=== PATIENT | female | born 1965 | race Caucasian/White ===

== ENCOUNTER 2018-05-11 11:46 | Emergency (ER) | payer OTHER ==
[~2018-05-11] VITALS: Ht 172.7 cm; Wt 104.3 kg
--- OUTSIDE RECORDS SUMMARY | ~2018-05-11 | XMS | Encounter Summary ---
Demographics + + + | Address | [address] | | | [place] [address] | + + + | Home Phone | | + + + | Preferred Language | Unknown | + + + | Marital Status | | + + + | Hinduism Affiliation | Unknown | + + + | Race | Unknown | + + + | Ethnic Group | Unknown | + + + Author + + + | Author | [facility] | | | and [place] | + + + | Organization | [facility] | | | and [place] | + + + | Address | Unknown | + + + | Phone | Unavailable | + + + Support + + + + + | Name | Relationship | Address | Phone | + + + + + | None,Time Of Reg | ECON | 11 14 2012 | Unavailable | | | | NAN, | | + + + + + | Justin Mota | ECON | [address] | | | | | [place] | | | | | [address] | | + + + + + Care Team Providers + +------+ + | Care Community Worker Name | Role | Phone | + +------+ + | Vasiliy Bustillo DO | PCP | Unavailable | + +------+ + Reason for Visit + + + | Reason | Comments | + + + | Medication Refill | | + + + Encounter Details +--------+--------+ + + + | Date | Type | Department | Care Team | Description | +--------+--------+ + + + | 03/08/ | Refill | [facility] | Ally Otto, CC | Medication Refill | | 2017 | | [facility] | 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 | | | | | [facility] [address] | | | | | | [facility] [facility], | | | | | | [place] [address] | | | | | | [phone] | | | +--------+--------+ + + + Social History + +-------+ +--------+------+ | Tobacco Use | Types | Packs/Day | Years | Date | | | | | Used | | + +-------+ +--------+------+ | Never Smoker | | | | | + +-------+ +--------+------+ + +---+---+---+ | Smokeless Tobacco: | | | | | Never Used | | | | + +---+---+---+ + + +---------+ + | Alcohol Use | Drinks/We | oz/Week | Comments | | | ek | | | + + +---------+ + | No | | | | + + +---------+ + + + + | Sex Assigned at | Date Recorded | | | | + + + | Not on file | | + + + as of this encounter Plan of Treatment Not on fileas of this encounter Visit Diagnoses Not on filein this encounter"
--- OUTSIDE RECORDS SUMMARY | ~2018-05-11 | XMS | Clinical Summary ---
Demographics + + + | Address | [address] | | | [place] [address] | + + + | Home Phone | | + + + | Preferred Language | Unknown | + + + | Marital Status | | + + + | Mormon Affiliation | Unknown | + + + | Race | Unknown | + + + | Ethnic Group | Unknown | + + + Author + + + | Author | [facility] | | | and [place] | + + + | Organization | [facility] | | | and [place] | [...] + + + + + | Justin Duran | ECON | [address] | | | | | [place] | | | | | [address] | | + + + + + Care Team Providers + +------+ + | Care Hospital Aides And Assistants Teacher Name | Role | Phone | + +------+ + | Vasiliy Bustillo DO | PP | Unavailable | + +------+ + Allergies + + + + + + | Active Allergy | Reactions | Severity | Noted | Comments | | | | | Date | | + + + + + + | Hydrocodone | | | 06/11/20 | vomting | | | | | 13 | | + + + + + + Current Medications + + +---------+---------+------+------+-------+ | Prescription | Sig. | Disp. | Refills | Star | End | Statu | | | | | | t | Date | s | | | | | | Date | | | + + +---------+---------+------+------+-------+ | Calcium Carbonate | Take 1 tablet by | | | | | Activ | | (CALCIUM 500 PO) | mouth Daily. | | | | | e | + + +---------+---------+------+------+-------+ | fish oil 1,000 mg | Take 1,000 mg by | | | | | Activ | | capsule | mouth Daily. | | | | | e | + + +---------+---------+------+------+-------+ | ibuprofen (ADVIL, | Take 200 mg by mouth | | | | | Activ | | MOTRIN) 200 mg | every 6 hours as | | | | | e | | tablet | needed. | | | | | | + + +---------+---------+------+------+-------+ | Multiple Vitamin | Take 1 capsule by | | | | | Activ | | (MULTIVITAMINS PO) | mouth Daily. | | | | | e | + + +---------+---------+------+------+-------+ | albuterol (PROAIR | Inhale 2 puffs into | | | | | Activ | | HFA) 90 mcg/puff | the lungs every 6 | | | | | e | | inhaler | hours as needed. | | | | | | + + +---------+---------+------+------+-------+ | ascorbic acid | Take 500 mg by mouth | | | | | Activ | | (VITAMIN C) 500 mg | Daily. | | | | | e | | tablet | | | | | | | + + +---------+---------+------+------+-------+ | omeprazole | Take 1 capsule by | 60 | 2 | 12/1 | | Activ | | (PRILOSEC) 20 mg | mouth 2 times daily. | capsule | | 2/20 | | e | | capsule | | | | 13 | | | + + +---------+---------+------+------+-------+ | FLUoxetine | Take 1 capsule by | 30 | 1 | 08/2 | | Activ | | (PROZAC) 20 mg | mouth Daily. | capsule | | 8/20 | | e | | capsule | | | | 18 | | | + + +---------+---------+------+------+-------+ | | Take 1 capsule by | 90 | 1 | 08/2 | | Activ | | triamterene-hydrochl | mouth every morning. 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 | | +--------+--------+ + + + from Last 3 Months Family History + +------+ + + | Relation | Name | Status | Comments | + +------+ + + | Father | | Alive | | + +------+ + + | Mother | | | breast cancer | | | | (Age | | | | | 56) | | + +------+ + + Social History + +-------+ +--------+------+ [...] on file | | + + + Last Filed Vital Signs + + + + | Vital Sign | Reading | Time Taken | + + + + | Blood Pressure | 124/78 | 07/18/2013834 PST | + + + + | Pulse | 60 | 07/18/2013834 PST | + + + + | Temperature | 36.6 C (97.8 F) | 07/18/2013834 PST | + + + + | Respiratory Rate | 16 | 07/18/2013834 PST | + + + + | Oxygen Saturation | - | - | + + + + | Inhaled Oxygen | - | - | | Concentration | | | + + + + | Weight | 102.5 kg (226 lb) | 07/18/2013834 PST | + + + + | Height | 170.2 cm (5' 7") | 07/18/2013834 PST | + + + + | Body Mass Index | 35.4 | 07/18/2013 0835 PST | + + + + Plan of Treatment + + + + + | Health Maintenance | Due Date | Last Done | Comments | + + + + + | Hepatitis C | | | | | Screening | 4 | | | + + + + + | Vaccine: | | | | | Dtap/Tdap/Td (1 - | 3 | | | | Tdap) | | | | + + + + + | Cervical Cancer | | | | | Screening (Pap) | 4 | | | + + + + + | BREAST CANCER | | | | | SCREENING (MAMM Q2 | 4 | | | | YEARS 50-74) | | | | + + + + + | Colorectal Cancer | | 06/24/2013, 06/24/2013 | | | Screening (FIT) | 4 | | | + + + + + | PRIMARY CARE | | 07/18/2013, 06/11/2013 | | | OUTREACH-MODERATE | 4 | | | | RISK EVERY 1 YEAR | | | | + + + + + | Vaccine: Influenza | | | | | (#1) | 8 | | | + + + + + Results Not on filefrom Last 3 Months Insurance + +--------+ +------+ + + | Payer | Benefi | Subscriber | Type | Phone | Address | | | t Plan | ID | | | | | | / | | | | | | | Group | | | | | + +--------+ +------+ + + | MODA | MODA | [id number] | PPO | +- | [address] [address] | | | [place] | | [address] | [place] [address] | | | [place] | | | | | | | [place] | | | | | + +--------+ +------+ + + | [facility] | PHP | [id number] | PPO | +- | | | PLAN | [place] | | | [phone] | | | | PROV | | | | | | | CHOICE | | | | | + +--------+ +------+ + + + +--------+ +--------+ + + | Guarantor Name | Accoun | Relation to | Date | Phone | Billing Address | | | t Type | Patient | of | | | | | | | | | | + +--------+ +--------+ + + | KATHERIN DURAN | Person | Self | [birth year] | Work: | [address] | | | 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
--- OUTSIDE RECORDS SUMMARY | ~2018-05-11 | XMS | Encounter Summary ---
Demographics + + + | Address | [address] | | | [place] [address] | + + + | Home Phone | | + + + | Preferred Language | Unknown | + + + | Marital Status | | + + + | Protestant Affiliation | Unknown | + + + | Race | Unknown | + + + | Ethnic Group | Unknown | + + + Author + + + | Author | [facility] | | | and [place] | + + + | Organization | [facility] | | | and [...] [place] | | | | | [address] | | + + + + + Care Team Providers + +------+ + | Care Rehabilitation Attendant Name | Role | Phone | + [...] | | | [facility] [address] | [place] | | | | [address] [place], | [address] | | | | | [place] [address] | [phone] | | | | | [phone] | | | +--------+--------+ + + + [...]
== END 2018-05-11 11:57 | disposition home or self-care (01) ==
LOC: ED 11:46
DX: M25.562 Pain in left knee (principal); X50.1XXA Overexertion from prolonged static or awkward postures, initial encounter; Y93.89 Activity, other specified; Y92.89 Other specified places as the place of occurrence of the external cause; Y99.0 Civilian activity done for income or pay

== ENCOUNTER 2019-10-19 06:53 | Emergency (ER) | payer OTHER ==
[~2019-10-19] VITALS: Ht 172.7 cm; Wt 104.3 kg
[2019-10-19] MEDS ORDERED: BACTRIM 400-801 EACH PO (07:06)
[2019-10-19] MEDS ORDERED: FAMCICLOVIR500 MG PO (07:40)
== END 2019-10-19 07:49 | disposition home or self-care (01) ==
LOC: ED 06:53
DX: B02.9 Zoster without complications (principal); I10 Essential (primary) hypertension
CPT/HCPCS: 99282

== ENCOUNTER 2020-04-23 06:00 | Emergency (ER) | payer OTHER ==
[~2020-04-23] VITALS: Ht 172.7 cm; Wt 107.0 kg
--- OUTSIDE RECORDS SUMMARY | ~2020-04-23 | XMS | Encounter Summary ---
Demographics + + + | Address | [address] | | | [place] [address] | + + + | Home Phone | | + + + | Preferred Language | Unknown | + + + | Marital Status | | + + + | Tenriism Affiliation | Unknown | + + + | Race | White | + + + | Ethnic Group | Not or | + + + Author + + + | Author | [facility] | | | and [place] | + + + | Organization | [facility] | | | and [place] | + + + | Address | Unknown | + + + | Phone | Unavailable | + + + Support + + + + + | Name | Relationship | Address | Phone | + + + + + | Justin Mota | ECON | [address] | | | | | [place], [place] | | | | | [address] | | + + + + + Care Team Providers + +------+ + | Care Principal Technical Specialist Name | Role | Phone | + +------+ + | Vasiliy Bustillo DO | PCP | | + +------+ + Encounter Details +--------+ + + + + | Date | Type | Department | Care Team | Description | +--------+ + + + + | 06/04/ | Abstract | [facility] [place] | [facility], | | | 2012 | | GASTROENTEROLOGY | PARAG [address] | | | | | [address] | [address] | | | | | [address] [place], [place] | [place], [place] | | | | | [address] | [address] | | | | | [phone] | | | +--------+ + + + + Social History + +-------+ +--------+------+ | Tobacco Use | Types | Packs/Day | Years | Date | | | | | Used | | + +-------+ +--------+------+ | Never Assessed | | | | | + +-------+ +--------+------+ + + + | Sex Assigned at | Date Recorded | | | | + + + | Not on file | | + + + documented as of this encounter Plan of Treatment Not on filedocumented as of this encounter Visit Diagnoses Not on filedocumented in this encounter"
--- OUTSIDE RECORDS SUMMARY | ~2020-04-23 | XMS | Encounter Summary ---
Demographics + + + | Address | [address] | | | [place] [address] | + + + | Home Phone | | + + + | Preferred Language | Unknown | + + + | Marital Status | | + + + | Taoism Affiliation | Unknown | + + + | Race | White | + + + | Ethnic Group | Not or | + + + Author + + + | Author | [facility] | | | and [place] | + + + | Organization | [facility] | | | [...] [place], [place] | | | | | [address] | | + + + + + Care Team Providers + +------+ + | Care Professional Skater Name | Role | Phone | + +------+ + | Vasiliy Bustillo DO | PCP | | + +------+ + Reason for Referral Evaluate & Treat (Routine) +--------+ + + + + + | Status | Reason | Specialty | Diagnoses / | Referred By | Referred To | | | | | Procedures | Contact | Contact | +--------+ + + + + + | Closed | Specialty | Gastroenterol | Diagnoses | | Harri, | | | Services | ogy | Abdominal | [facility] | Derik Jeff MD | | | Required | | pain Fecal | Rhina, | [address], | | | | | urgency | [employer] [address] | [address] | | | | | Diarrhea | [address] | [place], | | | | | Heartburn | [address] | [place] [address] | | | | | Procedures | [place], | Phone: | | | | | [place] [facility] | [place] [address] | [phone] | | | | | ENDOSCOPY,DI | Phone: | Fax: | | | | | [place] | [phone] | [phone] | | | | | [facility]PP[facility] | Fax: | | | | | | ENDOSCOPY,BI | [phone] | | | | | | [place] | | | | | | | COLONOSCOPY, | | | | | | | DIAGNOSTIC | | | | | | | [place] | | | | | | | COLONOSCOPY, | | | | | | | BIOPSY | | | +--------+ + + + + + Reason for Visit + + + | Reason | Comments | + + + | Irritable Bowel | | | Syndrome | | + + + Evaluate & Treat (Routine) +--------+--------+ + + + + | Status | Reason | Specialty | Diagnoses / | Referred By | Referred To | | | | | Procedures | Contact | Contact | +--------+--------+ + + + + | Closed | | Nurse | Diagnoses | Ivy, | Alex, | | | | Practitioner | IBS/ PT/ | Vasiliy Jeff, | Rhina, | | | | / | MODA/ | DO [address] | [address] | | | | Gastroenterol | [address] | [address] | | | | ogy | Procedures | [place], [place] | [address] | | | | | [place] OFFICE | [address] | TIGRE [place], | | | | | OUTPATIENT | Phone: | [place] [address] | | | | | VISIT 25 | [phone] | Phone: | | | | | MINUTES | Fax: | [phone] | | | | | | [phone] | Fax: | | | | | | | [phone] | +--------+--------+ + + + + Encounter Details +--------+---------+ + + + | Date | Type | Department | Care Team | Description | +--------+---------+ + + + | 06/11/ | Office | [facility] | [facility], | Abdominal pain | | 2012 | Visit | GASTROENTEROLOGY | [address] [address] | (Primary Dx); Fecal | | | | [address] [place] | [address] [address] | urgency; Diarrhea; | | | | [address] | [place] | Heartburn | | | | [address] | [address] | | | | | [phone] | | | +--------+---------+ + + + Social History + +-------+ [...] + +---------+ + | Alcohol Use | Drinks/Week | oz/Week | Comments | + + +---------+ + | No | | | | + + +---------+ + + + + | Sex Assigned at | Date Recorded | | | | + + + | Not on file | | + + + documented as of this encounter Last Filed Vital Signs + + + + + | Vital Sign | Reading | Time Taken | Comments | + + + + + | Blood Pressure | 130/82 | 06/11/2013 8:30 AM | | | | | PST | | + + + + + | Pulse | 76 | 06/11/2013 8:30 AM | | | | | PST | | + + + + + | Temperature | 36.9 C (98.5 F) | 06/11/2013 8:30 AM | | | | | PST | | + + + + + | Respiratory Rate | 16 | 06/11/2013 8:30 AM | | | | | PST | | + + + + + | Oxygen Saturation | - | - | | + + + + + | Inhaled Oxygen | - | - | | | Concentration | | | | + + + + + | Weight | 102.1 kg (225 lb) | 06/11/2013 8:30 AM | | | | | PST | | + + + + + | Height | 170.2 cm (5' 7") | 06/11/2013 8:30 AM | | | | | PST | | + + + + + | Body Mass Index | 35.24 | 06/11/2013 8:30 AM | | | | | PST | | + + + + + documented in this encounter Progress Notes Rhina JohnsonPARAG - 06/11/2013 8:52 AM PSTFormatting of this note might be differe nt from the original. Katherin Mota is a 48 y.o. female referred by Vasiliy Bustillo for evaluation and treatm ent of abdominal pain and alterations in bowels. History of present illness: Patient notes that she has increased gas. Notes both flatulence and eructation. Notes that urge to have BM. Needs to urgently go to the restroom. Usually results in diarrh ea. Can happen about 2 times per day. Does not feel like everything is evacuating. Diarrhea episodes come about once per week. Nausea can also happen following eating. This started last week. Was an issue all last week . Never happened in the past and resolved on its own. Has tried to cut out gluten without relief. She has had issues with heartburn. Taken Prilosec for the past 3 years. Allergies Allergen Reactions Hydrocodone vomting Past Medical History Diagnosis Date Carpal tunnel syndrome Degenerative cervical disc Cervical spondylosis Spinal anomaly, congenital Sacralization of lumbar vertebra Edema Essential hypertension GERD (gastroesophageal reflux disease) Hyperlipidemia IBS (irritable bowel syndrome) Impaired fasting glucose Lumbar spondylosis Osteoarthritis Kidney stones Bronchitis UTI (urinary tract infection) Asthma STD (female) Past Surgical History Procedure Date Carpal tunnel release left hand History reviewed. No pertinent family history. History Social History Marital Status: Spouse Name: N/A Number of Children: N/A Years of Education: N/A Occupational History Not on file. Social History Main Topics Smoking status: Never Smoker Smokeless tobacco: Never Used Alcohol Use: No Drug Use: No Sexually Active: Not on file Other Topics Concern Not on file Social History Narrative No narrative on file Review of systems: Constitutional:Denies any fevers, chills, or unintentional weight loss. Eyes:Denies using glaucoma eye drops. Denies dry, burning, painful eyes Respiratory: Complains of shortness of breath. Denies constant coughing or wheezing. Gastrointestinal:Negative except as stated above. Skin: Denies rashes Neurological: Complains of numbness and tingling and frequent bothersome headaches.Denies m candie difficulties, muscle weakness, paralysis of arms or legs, epilepsy or seizure. ENT:Denies hearing loss, hearing aids, hearing ringing or buzzing in ears, constantly runny nose, nasal obstruction, hayfever, dentures, or hoarseness. Cardiovascular: Point of heart palpitations. Denies chest pain or bothersome ankle swellin g. : Denies painful urination, urine incontinence, waking up on average more than once per n ight to urinate, bloody urine, or impotence Musculoskeletal: Complains of painful joints. Denies swollen joints or painful back. Psychiatric: Complains of depression. Denies anxiety. Endocrine: Denies enlarged thyroid Heme/lymph:Negative except as stated above. Physical exam: General: well developed, well nourished, in no acute distress. Head: normocephalic and atraumatic Eyes: Sclera clear Mouth: MMM Lungs: Clear to auscultate bilaterally and throughout Heart: regular rate and rhythm Abdomen: Soft, tender to palpation over left lower quadrant, mildly tender to palpation over epi gastric area and right abdomen, non distended, bowel tones positive times 4 quadrants, negat farhad Reyes's sign, negative rebound tenderness, no guarding, no hepatosplenomegaly palpated. Rectal: Will be done prior to procedure Msk: symmetrical with no deformity, with normal posture and gait, normal strength. Extremities: no clubbing, cyanosis, edema, or deformity noted Neurologic: no focal deficits, cranial nerves II-XII grossly intact Skin: intact without lesions or rashes. Psych: alert and cooperative; normal mood and affect; normal attention span and concentration. Stool studies 05/23/2013: Stool wbc none seen Ova and parasites negative Giardia negative Clostridium difficile negative Occult blood negative Calprotectin 110 Laboratory 02/08/2013: CMP within normal limits Magnesium 2.0 within normal limits TSH 1.63 within normal limits Free T4-1 0.0 within normal limits CRP less than 5 CBC within normal limits LORENE 1:40 Assessment: 1. Abdominal pain 2. Fecal urgency 3. Diarrhea 4. Heartburn Plan: Patient to have EGD and colonoscopy for further evaluation. The procedural techniques, risk s, indications, and alternatives were discussed. Among the risks, are perforation, bleeding , infection, allergic/adverse reactions to medications, and cardiovascular complications. E ach of these could result in hospitalization, additional procedures (including surgery), or other life threatening complications. Patient verbalized understanding. Risk factors to col o-rectal cancer discussed with patient including smoking, obesity, excessive red meat ingest ion, advancing age and first degree family relative with history of colo-rectal cancer discu ssed with patient. Patient to call with any questions or concerns prior to procedure. Start probiotics daily. Will follow up with results. Patient is to call with any question or concerns. Any fevers, chills, chest pain, SOB or other serious symptoms patient is to call the office or go to ER . Cc: Vasiliy Bustillo Reviewed most recent labs, imaging, and procedures. This note was dictated using voice recognition software. Please contact me if there are an y questions regarding its content. Electronically signed by PARAG Tello at 12/2012 9:43 AM PSTdocumented in this encounter Miscellaneous Notes Miscellaneous - RAVEN DIETRICH - 06/11/2013 12:00 AM PST documented in this encounter Plan of Treatment + + +--------+ + + | Name | Type | Priori | Associated Diagnoses | Order Schedule | | | | ty | | | + + +--------+ + + | Ambulatory referral | Outpatient | Routin | Abdominal pain | Expected: | | to Gastroenterology | Referral | e | Fecal urgency | 06/24/2013, Expires: | | | | | Diarrhea Heartburn | 06/11/2014 | + + +--------+ + + documented as of this encounter Results Celiac Panel, IgA and IgG (06/11/2013 9:51 AM PST) + + + + + + | Component | Value | Ref Range | Performed | Pathologist | | | | | At | Signature | + + + + + + | Tissue | <1.2Comment: Negative | <4.0 U/mL | [facility] | | | Transglutam | < 4.0Weak Positive | | [facility] | | | inase IgA | 4.0 to 10.0Positive | | MEDICAL | | | | >10.0 | | CENTER - | | | |Positive >10.0 | | LABORATORY | | + + + + + + | Tissue | 1.3Comment: Negative | 0.0 - 5.9 U/mL | [facility] | | | Transglutam | < 6.0Weak Positive | | [facility] | | | inase IgG | 6.0 to 9.0Positive | | MEDICAL | | | | > 9.0tTG antibody, | | CENTER - | | | | especially IgA, is | | LABORATORY | | | | sensitive and specific | | | | | | foruntreated Celiac | | | | | | Disease. Levels can | | | | | | decrease significantlyin | | | | | | response to a gluten | | | | | | free diet. The IgG assay | | | | | | is usedmainly to detect | | | | | | celiac patients who are | | | | | | IgA deficient.Testing | | | | | | Performed: [facility] [address] | | | | | | [address], [place] | | | | | | [id number]: [id number] | | | | + + + + + + + + | Specimen | + + | Blood specimen | | (specimen) | + + + + + + + | Performing | Address | City/State[facility] | Phone Number | | Organization | | | | + + + + + | [facility] | [address] | [place], [place] | [phone] | | [facility] | | [address] | | | - LABORATORY | | | | + + + + + | [facility] | [address] | [place], [place] | | | [facility] | | [address], [facility] | | | - LABORATORY | | | | + + + + + documented in this encounter Visit Diagnoses + + | Diagnosis | + + | Abdominal pain - Primary Abdominal pain, unspecified site | + + | Fecal urgency | + + | Diarrhea | + + | Heartburn | + + documented in this encounter
--- OUTSIDE RECORDS SUMMARY | ~2020-04-23 | XMS | Encounter Summary ---
Demographics + + + | Address | [address] | | | [place] [address] | + + + | Home Phone | | + + + | Preferred Language | Unknown | + + + | Marital Status | | + + + | Gnosticism Affiliation | Unknown | + + + | Race | White | + + + | Ethnic Group | Not or | + + + Author + + + | Author | [facility] | | | and [place] | + + + | Organization | [facility] | | | and [place] | + + + | Address | Unknown | + + + | Phone | Unavailable | + + + Support + + + + + | Name | Relationship | Address | Phone | + + + + + | Justin Mota | ECON | [address] | | | | | [place], [place] | | | | | [address] | | + + + + + Care Team Providers + +------+ + | Care Underlay Stitcher Name | Role | Phone | + +------+ + | Vasiliy Bustillo DO | PCP | | + +------+ + Reason for Visit +--------+--------+ + | Reason | Onset | Comments | | | Date | | +--------+--------+ + | LABS | 05/24/ | | | | 2018 | | +--------+--------+ + Encounter Details +--------+ + + + + | Date | Type | Department | Care Team | Description | +--------+ + + + + | 05/24/ | Telephone | [facility] | Vasiliy Bustillo | LABS | | 2019 | | [facility] | E, DO [address] | | | | | [facility] [address] | [place], [place] | | | | [address] [place], | [address] | | | | | [place] [address] | [phone] | | | | | [phone] | | | +--------+ + + + [...] + + documented as of this encounter Miscellaneous Notes Telephone Encounter - Ally Otto CC CMA - 05/27/2019 5:39 PM PDTken Shipley with patient. RAHUL Fulton CMA eleVasiliy Cabrales DO - 05/27/2019 7:43 AM PDTPlease order same labs as 07/2018 Fasting IPL ezurdo ne Encounter - EliezercherylGalinaGloria J - 05/24/2019 9:27 AM PDTPt called and states if she need labs done before her appt on 07/30. She states she is poss going through menopause and poss thyroid problems Please call and advise [phone] Gloria Ghosh do cumented in this encounter Plan of Treatment Not on filedocumented as of this encounter Procedures + +--------+ + + + | Procedure Name | Priori | Date/Time | Associated Diagnosis | Comments | | | ty | | | | + +--------+ + + + | THYROID STIMULATING | Routin | 06/07/2019 | | Results for this | | HORMONE 3RD GEN | e | 6:36 AM | | procedure are in the | | | | PDT | | results section. | + +--------+ + + + | URINALYSIS WITH | Routin | 06/07/2019 | | Results for this | | MICROSCOPIC WITH | e | 6:36 AM | | procedure are in the | | CULTURE IF INDICATED | | PDT | | results section. | + +--------+ + + + | CBC WITH | Routin | 06/07/2019 | | Results for this | | DIFFERENTIAL | e | 6:36 AM | | procedure are in the | | | | PDT | | results section. | + +--------+ + + + documented in this encounter Results Urinalysis with Microscopic with Culture if Indicated (07/03/2019 11:26 AM PST) + + + + + + | Component | Value | Ref Range | Performed | Pathologist | | | | | At | Signature | + + + + + + | Color, | Yellow | Pale Yellow, | [facility] | | | Urine | | Yellow | [facility] | | [facility] | | | | | [facility] | | | | | [facility] | | + + + + + + | Clarity, | Slightly Cloudy (A) | Clear | [facility] | | | Urine | | | [facility] | | | | | [facility] | | | | | [facility] | | | | | | [facility] | | + + + + + + | pH, Urine | 8.0 (H) | 5.0 - 7.0 | [facility] | | | | | | [facility] | | | [facility] | | | | | [facility] | | | | | | [facility] | | + + + + + + | Specific | 1.010 | 1.003 - 1.030 | [facility] | | | [place], | | | [facility] | | | Urine | | | [facility] | | | | | | [facility] | | | | | | [facility] | | | | | | [facility] | | + + + + + + | Protein, | Negative | Negative | [facility] | | | Urine | | | [facility] | | | | | [facility] | | | | | [facility] | | | | | | [facility] | | + + + + + + | Blood, | 10 sarah/uL (A) | Negative | [facility] | | | Urine | | | [facility] | | | | | [facility] | | | | | [facility] | | | | | [facility] | | + + + + + + | Glucose, | Normal | Normal | [facility] | | | Urine | | | [facility] | [facility] | | | | | [facility] | | | | | | [facility] | | | | | | [facility] | | + + + + + + | Ketones, | Negative | Negative | [facility] | | | Urine | | | [facility] | [facility] | [facility] | | | | | | [facility] | | | | | | [facility] | | | | | | [facility] | | + + + + + + | Bilirubin, | Negative | Negative | [facility] | | | Urine | | | [facility] | | | | | [facility] | | | | | | [facility] | | | | | | [facility] | | + + + + + + | Nitrite, | Negative | Negative | [facility] | | | Urine | | | [facility] | | | | | | [facility] | | | | | | [facility] | | | | | | [facility] | | + + + + + + | Leukocyte | Negative | Negative | [facility] | | | Esterase, | | | [facility] | | | Urine | | | [facility] | | | | | | [facility] | | | | | | [facility] | | | | | | [facility] | | + + + + + + | Urobilinoge | Normal | 0-1.0 mg/dL | [facility] | | | n, Urine | | | [facility] | [facility] | [facility] | | | | | | [facility] | | | | | | [facility] | | | | | | [facility] | | + + + + + + | White Blood | 0-2 | <=5 /HPF | [facility] | | | Cells, | | | [facility] | | | Urine | | | [facility] | | | | | | [facility] | | | | | | [facility] | | | | | | [facility] | | + + + + + + | Red Blood | 0-2 | <=5 /HPF | [facility] | | | Cells, | | | [facility] | | | Urine | | | [facility] | | | | | | [facility] | | | | | | [facility] | | | | | | [facility] | | + + + + + + | Squamous | Many (A) | None Seen /LPF | [facility] | | | Epithelial | | | [facility] | | | Cells, | | | [facility] | | | Urine | | | [facility] | | | | | | [facility] | | | | | | [facility]ENTER LAB | | + + + + + + | Bacteria, | Few (A) | None Seen /HPF | [facility] | | | Urine | | | [facility] | | | | | | [facility] | | | | | | [facility] | | | | | | [facility] | | + + + + + + | Urine | Urine Culture Not | | [facility] | | | Comment | Indicated | | [facility] | | [facility] | | [facility] | | | | | | [facility] | | | | | | [facility] | | + + + + + + + + | Specimen | + + | Urine - Urine | | specimen obtained by | | clean catch | | procedure (specimen) | + + + + + + + | Performing | Address | City/State/Zipcode | Phone Number | | Organization | | | | + + + + + | [facility] | [address] | [place] | [phone] | | [facility] | | [address] | | | [facility] | | | | + + + + + TSH (07/03/2019 11:20 AM PST) + +-------+ + + + | Component | Value | Ref Range | Performed | Pathologist | | | | | At | Signature | + +-------+ + + + | TSH | 1.32 | 0.36 - 3.74 | [facility] | | | | | uIU/mL | [facility] | [facility] | | | | | | [facility] | | + +-------+ + + + + + | Specimen | + + | Blood | + + + + + + + | Performing | Address | City/State/Zipcode | Phone Number | | Organization | | | | + + + + + | [facility] | [address] | [place] | [phone] | | [facility] | | [address] | | + + + + + CBC with Differential (07/03/2019 11:20 AM PST) + +---------+ + + + | Component | Value | Ref Range | Performed | Pathologist | | | | | At | Signature | + +---------+ + + + | White Blood | 8.3 | 4.3 - 10.4 K/uL | [facility] | | | Cells | | | [facility] | | | | [facility] | | | | | [facility] | | | | | | [facility] | | | | | | [facility] | | + +---------+ + + + | Red Blood | 4.91 | 4.12 - 5.30 | [facility] | | | Cells | | M/uL | [facility] | [facility] | | | | | | [facility] | | | | | | [facility] | | | | | | [facility] | | + +---------+ + + + | Hemoglobin | 14.7 | 12.4 - 15.7 | [facility] | | | | | g/dL | [facility] | | | | | | [facility] | | | | | | [facility] | | | | | | [facility] | | + +---------+ + + + | Hematocrit | 43.8 | 37.7 - 47.0 % | [facility] | | | | | | [facility] | | | | [facility] | | | | | | [facility] | | | | | | [facility] | | + +---------+ + + + | MCV | 89.2 | 82.0 - 97.0 fL | [facility] | | | | | | [facility] | | [facility] | | | [facility] | | | | | | [facility] | | + +---------+ + + + | MCH | 29.9 | 27.1 - 32.3 pg | [facility] | | | | | | [facility] | | | [facility] | | | [facility] | | | | | | [facility] | | + +---------+ + + + | MCHC | 33.6 | 32.0 - 36.9 | [facility] | | | | | g/dL | [facility] | | | | | [facility] | | | | | [facility] | | | | | | [facility] | | + +---------+ + + + | RDW-CV | 13.7 | 0.0 - 17.0 % | [facility] | | | | | | [facility] | | | | | [facility] | | | | | [facility] | | | | | | [facility] | | + +---------+ + + + | Platelet | 232 | 150 - 450 K/uL | [facility] | | | Count | | | [facility] | | | [facility] | | | | | [facility] | | | | | [facility] | | + +---------+ + + + | MPV | 7.8 (L) | 9.4 - 12.3 fL | [facility] | | | | | | [facility] | | [facility] | | | [facility] | | | | | | [facility] | | + +---------+ + + + | % | 53.6 | 42.0 - 76.0 % | [facility] | | | Neutrophils | | | [facility] | | | | | [facility] | | | | | | [facility] | | | | | | [facility] | | + +---------+ + + + | % | 38.5 | 20.0 - 40.0 % | [facility] | | | Lymphocytes | | | [facility] | | | | | [facility] | | | | | | [facility] | | | | | | [facility] | | + +---------+ + + + | % Monocytes | 5.8 | 3.0 - 13.0 % | [facility] | | | | | | [facility] | | | [facility] | [facility] | | | | | [facility] | | | | | | [facility] | | + +---------+ + + + | % | 1.7 | 0.0 - 7.0 % | [facility] | | | Eosinophils | | | [facility] | | | | | [facility] | | | | | | [facility] | | | | | | [facility] | | + +---------+ + + + | % Basophils | 0.4 | 0.0 - 2.0 % | [facility] | | | | | | [facility] | | | | | [facility] | | | | | | [facility] | | | | | | [facility] | | + +---------+ + + + | Absolute | 4.40 | 2.50 - 8.50 | [facility] | | | Neutrophils | | K/uL | [facility] | | | | [facility] | | | [facility] | | | | | | [facility] | | + +---------+ + + + | Absolute | 3.20 | 1.00 - 3.80 | [facility] | | | Lymphocytes | | K/uL | [facility] | | | | | [facility] | | | | | [facility] | | | | | | [facility] | | + +---------+ + + + | Absolute | 0.50 | 0.00 - 0.80 | [facility] | | | Monocytes | | K/uL | [facility] | | | | | | [facility] | | | | | | [facility] | | | | | | [facility] | | + +---------+ + + + | Absolute | 0.10 | 0.00 - 0.70 | [facility] | | | Eosinophils | | K/uL | [facility] | | | | | [facility] | | | | | [facility] | | | | | | [facility] | | + +---------+ + + + | Absolute | 0.00 | 0.00 - 0.20 | [facility] | | | Basophils | | K/uL | [facility] | | | [facility] | [facility] | | | | | [facility] | | | | | | [facility] | | + +---------+ + + + + + | Specimen | + + | Blood | + + + + + + + | Performing | Address | City/State/Zipcode | Phone Number | | Organization | | | | + + + + + | [facility] | [address] | [place], [place] | [phone] | | [facility] | | [address] | | | [facility] | | | | + + + + + Comprehensive Metabolic Panel (07/03/2019 11:20 AM PST) + +---------+ + + + | Component | Value | Ref Range | Performed | Pathologist | | | | | At | Signature | + +---------+ + + + | Na | 139 | 132 - 143 | [facility] | | | | | mmol/L | [facility] | | | | [facility] | | + +---------+ + + + | K | 3.4 | 3.3 - 4.9 | [facility] | | | | | mmol/L | [facility] | [facility] | | | [facility] | | + +---------+ + + + | Cl | 101 | 95 - 108 mmol/L | [facility] | | | | | | [facility] | | | | [facility] | | + +---------+ + + + | CO2 | 27 | 23 - 34 mmol/L | [facility] | | | | | | [facility] | [facility] | | [facility] | | + +---------+ + + + | Anion Gap | 11 | 7 - 16 mmol/L | [facility] | | | | | | [facility] | [facility] | [facility] | | + +---------+ + + + | Glucose | 80 | 70 - 110 mg/dL | [facility] | | | | | | [facility] | [facility] | | [facility] | | + +---------+ + + + | BUN | 12 | 5 - 26 mg/dL | [facility] | | | | | | [facility] | [facility] | [facility] | | + +---------+ + + + | Creatinine | 0.89 | 0.60 - 1.30 | [facility] | | | | | mg/dL | [facility] | | | | | | [facility] | | + +---------+ + + + | eGFR, | >60 | >=60 | [facility] | | | non- | | mL/min/1.73m2 | [facility] | | | [place] | | | | | | [facility] | | + +---------+ + + + | Calcium | 8.8 | 8.3 - 10.0 | [facility] | | | | | mg/dL | [facility] | | | | | [facility] | | + +---------+ + + + | Albumin | 3.9 | 3.0 - 4.5 g/dL | [facility] | | | | | | [facility] | | | | | | [facility] | | + +---------+ + + + | Bilirubin | 0.3 | 0.0 - 1.2 mg/dL | [facility] | | | Total | | | [facility] | | | | | | [facility] | | + +---------+ + + + | Total | 7.7 | 6.6 - 8.5 g/dL | [facility] | | | Protein | | | [facility] | | | | | | [facility] | | + +---------+ + + + | AST | 24 | 0 - 38 U/L | [facility] | | | | | | [facility] | | | | | [facility] | | + +---------+ + + + | ALT | 34 | 14 - 59 U/L | [facility] | | | | | | [facility] | [facility] | [facility] | | + +---------+ + + + | Alkaline | 137 (H) | 46 - 116 U/L | [facility] | | | Phosphatase | | | [facility] | | | | | | [facility] | | + +---------+ + + + | Globulin | 3.8 | 2.4 - 4.5 g/dL | [facility] | | | | | | [facility] | | | | | [facility] | | + +---------+ + + + | Albumin/Tatiana | 1.0 | 0.8 - 2.0 | [facility] | | | bulin Ratio | | | [facility] | | | | | [facility] | | + +---------+ + + + | BUN/Creatin | 13.5 | 7.0 - 24.0 | [facility] | | | ine Ratio | | | [facility] | | | | | | [facility] | | + +---------+ + + + | Fasting? | No | | [facility] | | | | | | [facility] | | [facility] | | | | | [facility] | | | | | | [facility] | | + +---------+ + + + + + | Specimen | + + | Blood | + + + + + + + | Performing | Address | City/State/Zipcode | Phone Number | | Organization | | | | + + + + + | [facility] | [address] | [place], [place] | [phone] | | [facility] | | [address] | | + + + + + | [facility] | [address] | [place], [place] | [phone] | | [facility] | | [address] | | | [facility] | | | | + + + + + Lipid Panel (07/03/2019 11:20 AM PST) + + + + + + | Component | Value | Ref Range | Performed | Pathologist | | | | | At | Signature | + + + + + + | Triglycerid | 204 (H) | 30 - 200 mg/dL | [facility] | | | es | | | [facility] | | | | | | [facility] | | + + + + + + | Cholesterol | 236 (H) | 0 - 200 mg/dL | [facility] | | | | | | [facility] | | | | | | [facility] | | + + + + + + | HDL | 41 | >=40 mg/dL | [facility] | | | | | | [facility] | | | | | | [facility] | | + + + + + + | Chol/HDL | 5.8 (H) | <=5.0 | [facility] | | | Ratio | | | [facility] | | | | | | [facility] | | + + + + + + | LDL, | 154 (H)Comment: LDL | <130 mg/dL | [facility] | | | Calculated | reference range: | | [facility] | | | | < 100 mg/dL | | [facility] | | | | [id number] - 129 mg/dL | | LAB[facility]AT[facility] | | | | Near [id number] - | | | | | | 159 mg/dL | | | | | | [id number] - 189 | | | | | | mg/dL High | | | | | | > 190 mg/dL Very | | | | | | High | | | | + + + + + + | Fasting? | No | | [facility] | | | | | | [facility] | | | | | [facility] | | | | | | [facility] | | | | | | [facility] | | + + + + + + + + | Specimen | + + | Blood | + + + + + + + | Performing | Address | City/State/Zipcode | Phone Number | | Organization | | | | + + + + + | [facility] | [address] | [place] | [phone] | | [facility] | | [address] | | + + + + + | [facility] | [address] | [place] | [phone] | | [facility] | | [address] | | | [facility] | | | | + + + + + Thyroid Stimulating Hormone 3rd Gen (06/07/2019 6:36 AM PDT) + + + + + + | Component | Value | Ref Range | Performed | Pathologist | | | | | At | Signature | + + + + + + | TSH | 1.91Comment: Biotin in | 0.270 - 4.20 | [facility] | | | | specimens taken from | | LAB | | | | patients on high-dose | | [facility] - | | | | biotin therapy or | | [facility] | | | | supplements may intefere | | | | | | with this test and | | | | | | cause inaccurate test | | | | | | results. It is | | | | | | recommended that for | | | | | | patients receiving | | | | | | therapy with high biotin | | | | | | doses (> 5 mg/day), no | | | | | | laboratory test specimen | | | | | | should be collected | | | | | | until at least 8 hours | | | | | | after the last biotin | | | | | | administration. | | | | + + + + + + + + | Specimen | + + | | + + + + + | Narrative | Performed At | + + + | Testing Performed at: [facility] [place] [facility] CLIA: [id number] - [address] | REFERENCE LAB | | [place] [address] | [facility] - | | | [facility] | + + + + + + + + | Performing | Address | City/State/Zipcode | Phone Number | | Organization | | | | + + + + + | [facility] | [address] | [place] | [phone] | | [facility] | | [address] | | + + + + + Urinalysis with Microscopic with Culture if Indicated (06/07/2019 6:36 AM PDT) + + + + + + | Component | Value | Ref Range | Performed | Pathologist | | | | | At | Signature | + + + + + + | Collection | CLEAN CATCH | | REFERENCE | | | | | | LAB | | | | | | [facility] | | + + + + + + | Color, UA | YELLOW | | REFERENCE | | | | | | LAB | | | | | | [facility] | | + + + + + + | Clarity, | CLOUDY | | REFERENCE | | | Urine | | | LAB | | | | | | [facility] | | + + + + + + | Specific | 1.020 | 1.005 - 1.030 | REFERENCE | | | [place] | | | LAB | | | | | | [facility] | | + + + + + + | pH, | 6 | 5 - 9 | REFERENCE | | | Scalp | | | LAB | | | | | | [facility] | | + + + + + + | Protein, UA | NEGATIVE | negative | REFERENCE | | | | | | LAB | | | | | | [facility] | | + + + + + + | Glucose, UA | NORMAL | normal | REFERENCE | | | | | | LAB | | | | | | [facility] | | + + + + + + | Ketones, UA | NEGATIVE | negative | REFERENCE | | | | | | LAB | | | | | | [facility] | | + + + + + + | Bilirubin, | NEGATIVE | negative | REFERENCE | | | UA | | | LAB | | | | | | [facility] | | + + + + + + | Blood, UA | SMALL | negative | REFERENCE | | | | | | LAB | | | | | | [facility] | | + + + + + + | Nitrite, UA | NEGATIVE | negative | REFERENCE | | | | | | LAB | | | | | | [facility] | | + + + + + + | Urobilinoge | NORMAL | normal | REFERENCE | | | n, Ur | | | LAB | | | | | | [facility] | | + + + + + + | Leukocyte | SMALL | negative | REFERENCE | | | esterase, | | | LAB | | | UA | | | [facility] | | + + + + + + | Other Casts | NEGATIVE | 0-1+ Hyaline | REFERENCE | | | | | | LAB | | | | | | [facility] | | + + + + + + | WBC, UA | 10 (H) | 0 - 4 | REFERENCE | | | | | | LAB | | | | | | [facility] | | + + + + + + | RBC, UA | 5 (H) | 0 - 4 | REFERENCE | | | | | | LAB | | | | | | [facility] | | + + + + + + | Squamous | SQUAMOUS 4+ | 0-1+ Squamous | REFERENCE | | | epithelial, | | | LAB | | | UA | | | [facility] | | + + + + + + | CRYSTAL UA | NEGATIVE | 0-1+ | REFERENCE | | | | | | LAB | | | | | | [facility] | | + + + + + + | Bacteria, | 4+Comment: A urine | negative | REFERENCE | | | UA | culture is indicated (10 | | LAB | | | | or greater WBCs and/or | | [facility] | | | | >1+ bacteria). However, | | | | | | the urinalysis | | | | | | microscopic shows | | | | | | urogenital contamination | | | | | | (>1+ squamous | | | | | | epithelial cells). If | | | | | | culture is desired, a | | | | | | new specimen is | | | | | | recommended. | | | | + + + + + + + + | Specimen | + + | | + + + + + | Narrative | Performed At | + + + | Testing Performed at: [facility] CLIA: [id number] - [address] | REFERENCE LAB | | [place] [address] | [facility] | + + + + + + + + | Performing | Address | City/State/Zipcode | Phone Number | | Organization | | | | + + + + + | RE[facility] | [address] | [place] | [phone] | | [facility] | | [address] | | + + + + + | REFERENCE LAB | [address] | [place] | [phone] | | [facility] | | [address] | | + + + + + CBC with Differential (06/07/2019 6:36 AM PDT) + +-------+ + + + | Component | Value | Ref Range | Performed | Pathologist | | | | | At | Signature | + +-------+ + + + | WBC | 6.3 | 4.5 - 11.0 | REFERENCE | | | | | | LAB | | | | | | [facility] | | + +-------+ + + + | Red Blood | 4.84 | 3.8 - 5.1 | REFERENCE | | | Cells | | | LAB | | | | | | [facility] | | + +-------+ + + + | Hemoglobin | 14.3 | 12.0 - 16.0 | REFERENCE | | | | | | LAB | | | | | | [facility] | | + +-------+ + + + | Hct | 42.5 | 35 - 45 | REFERENCE | | | | | | LAB | | | | | | [facility] | | + +-------+ + + + | MCV | 87.8 | 81 - 99 | REFERENCE | | | | | | LAB | | | | | | [facility] | | + +-------+ + + + | RDW | 14.0 | 10.5 - 15.0 | REFERENCE | | | | | | LAB | | | | | | [facility] | | + +-------+ + + + | MCH | 30 | 27 - 33 | REFERENCE | | | | | | LAB | | | | | | [facility] | | + +-------+ + + + | MCHC | 34 | 30 - 36 | REFERENCE | | | | | | LAB | | | | | | [facility] | | + +-------+ + + + | Platelet | 212 | 140 - 440 | REFERENCE | | | Count | | | LAB | | | | | | [facility] | | + +-------+ + + + | % | 57.7 | 39 - 80 | REFERENCE | | | Neutrophils | | | LAB | | | | | | [facility] | | + +-------+ + + + | % | 34.0 | 24 - 44 | REFERENCE | | | Lymphocytes | | | LAB | | | | | | [facility] | | + +-------+ + + + | Monocyte % | 6.4 | 0 - 12 | REFERENCE | | | | | | LAB | | | | | | [facility] | | + +-------+ + + + | Eosinophils | 0.9 | 0 - 6 | REFERENCE | | | % | | | LAB | | | | | | [facility] | | + +-------+ + + + | Basophils % | 1.0 | 0 - 2 | REFERENCE | | | | | | LAB | | | | | | [facility] | | + +-------+ + + + + + | Specimen | + + | | + + + + + | Narrative | Performed At | + + + | Testing Performed at: [facility] CL[facility]: [id number] - [address] | REFERENCE LAB | | [place] [address] | [facility] | + + + + + + + + | Performing | Address | City/State/Zipcode | Phone Number | | Organization | | | | + + + + + | REFERENCE LAB | [address] | [place] | [phone] | | [place] | | [address] | | + + + + + | REFERENCE LAB | [address] [facility] | [place] | [phone] | | [facility] | | [address] | | + + + + + documented in this encounter Visit Diagnoses + + | Diagnosis | + + | Essential hypertension - Primary Unspecified essential hypertension | + + | Hyperlipidemia, unspecified hyperlipidemia type | + + | Other depression | + + | Impaired fasting glucose | + + | Physical exam | + + documented in this encounter"
--- OUTSIDE RECORDS SUMMARY | ~2020-04-23 | XMS | Encounter Summary ---
Demographics + + + | Address | [address] | | | [place] [address] | + + + | Home Phone | | + + + | Preferred Language | Unknown | + + + | Marital Status | | + + + | Catholic Affiliation | Unknown | + + + | Race | White | + + + | Ethnic Group | Not or | + + + Author + + + | Author | [facility] | | | and [place] | + + + | Organization | [facility] | | | and [...] [place], [place] | | | | | [address] | | + + + + + Care Team Providers + +------+ + | Care Welding Estimator Name | Role | Phone | + +------+ + | Vasiliy Bustillo DO | PCP | | + +------+ + Reason for Visit Auth/Cert +--------+--------+ + + + + | Status | Reason | Specialty | Diagnoses / | Referred By | Referred To | | | | | Procedures | Contact | Contact | +--------+--------+ + + + + | | | | Diagnoses | | Char, | | | | | | | Derik Jeff MD | | | | | Gastroesopha | | [address], | | | | | geal reflux | | [address] | | | | | disease, | | [place], | | | | | esophagitis | | [place] [address] | | | | | presence not | | Phone: | | | | | specified | | [phone] | | | | | JANE | | Fax: | | | | | (obstructive | | [phone] | | | | | sleep | | | | | | | apnea) | | | | | | | Procedures | | | | | | | [place] | | | | | | | ESOPHAGOGAST | | | | | | | RODUODENOSCO | | | | | | | PY TRANSORAL | | | | | | | DIAGNOSTIC | | | | | | | [place] EGD | | | | | | | TRANSORAL | | | | | | | BIOPSY | | | | | | | SINGLE/MULTI | | | | | | | PLE [place] | | | | | | | ANESTHESIA | | | | | | | UPPER GI | | | | | | | ENDOSCOPIC | | | | | | | PX NOS EGD | | | +--------+--------+ + + + + Encounter Details +--------+---------+ + + + | Date | Type | Department | Care Team | Description | +--------+---------+ + + + | 09/06/ | Surgery | [facility] | Derik Pardo MD | EGD | | 2020 | | [facility] | [address], [place] | | | | | [address] | [address] [place], [place] | | | | | [place], [place] | [address] | | | | | [address] | | | | | | [phone] | | | +--------+---------+ + + + Social History + +-------+ +--------+------+ | Tobacco Use | Types | Packs/Day | Years | Date | | | | | Used | | + +-------+ +--------+------+ | Never Smoker | | 0 | 0 | | + +-------+ +--------+------+ + +---+---+---+ | Smokeless Tobacco: | | | | | Never Used | | | | + +---+---+---+ + + +---------+ + | Alcohol Use | Drinks/Week | oz/Week | Comments | + + +---------+ + | No | 0 Glasses of wine | 0.0 | | | | 0 Cans of beer 0 | | | | | Shots of liquor 0 | | | | | Standard drinks or | | | | | equivalent | | | + + +---------+ + + + + + | Alcohol Habits | Answer | Date Recorded | + + + + | How often do you have a drink containing | Never | 07/03/2019 | | alcohol? | | | + + + + | How many drinks containing alcohol do you | Not asked | | | have on a typical day when you are | | | | drinking? | | | + + + + | How often do you have six or more drinks on | Never | 07/03/2019 | | one occasion? | | | + + + + + + + | Sex Assigned at | Date Recorded | | | | + + + | Not on file | | + + + documented as of this encounter Last Filed Vital Signs + + + + + | Vital Sign | Reading | Time Taken | Comments | + + + + + | Blood Pressure | 172/83 | 09/06/2019 10:07 AM | | | | | PST | | + + + + + | Pulse | 71 | 09/06/2019 10:07 AM | | | | | PST | | + + + + + | Temperature | 36.7 C (98.1 F) | 09/06/2019 10:07 AM | | | | | PST | | + + + + + | Respiratory Rate | 16 | 09/06/2019 10:07 AM | | | | | PST | | + + + + + | Oxygen Saturation | 99% | 09/06/2019 10:07 AM | | | | | PST | | + + + + + | Inhaled Oxygen | - | - | | | Concentration | | | | + + + + + | Weight | 107.8 kg (237 lb | 09/06/2019 10:07 AM | | | | 10.5 oz) | PST | | + + + + + | Height | 172.7 cm (5' 8") | 09/06/2019 10:07 AM | | | | | PST | | + + + + + | Body Mass Index | 36.14 | 09/06/2019 10:07 AM | | | | | PST | | + + + + + documented in this encounter Medications at Time of Discharge + + + +---------+ + + | Medication | Sig | Dispensed | Refills | Start | End Date | | | | | | Date | | + + + +---------+ + + | Calcium Carbonate | Take 1 tablet by | | 0 | | | | (CALCIUM 500 PO) | mouth as needed. | | | | | + + + +---------+ + + | Cetirizine HCl | Take 1 tablet by | | 0 | | | | (ZYRTEC ALLERGY PO) | mouth Daily as | | | | | | | needed. | | | | | + + + +---------+ + + | | | | 0 | 04/30/20 | | | Estradiol-Norethindr | | | | 19 | | | one Acet 0.5-0.1 MG | | | | | | | TABS | | | | | | + + + +---------+ + + | FLUoxetine | Take 2 capsules by | 90 | 3 | 07/03/20 | | | (PROZAC) 20 mg | mouth Daily. | capsule | | 19 | | | capsuleIndications: | | | | | | | Other depression | | | | | | + + + +---------+ + + | ibuprofen (ADVIL, | Take 200 mg by mouth | | 0 | | | | MOTRIN) 200 mg | every 6 hours as | | | | | | tablet | needed. | | | | | + + + +---------+ + + | Multiple Vitamin | Take 1 capsule by | | 0 | | | | (MULTIVITAMINS PO) | mouth Daily. | | | | | + + + +---------+ + + | | Take 1 capsule by | 90 | 3 | 06/14/20 | | | triamterene-hydrochl | mouth every morning. | capsule | | 19 | | | orothiazide | | | | | | | (DYAZIDE) 37.5-25 MG | | | | | | | per | | | | | | | capsuleIndications: | | | | | | | Essential | | | | | | | hypertension | | | | | | + + + +---------+ + + | esomeprazole | Take 1 capsule by | 30 | 3 | 07/03/20 | | | (NEXIUM) 20 mg | mouth every morning | capsule | | 19 | 0 | | capsuleIndications: | (before breakfast). | | | | | | Gastroesophageal | | | | | | | reflux disease, | | | | | | | esophagitis presence | | | | | | | not specified | | | | | | + + + +---------+ + + documented as of this encounter H&P Notes Derik Pardo MD - 09/06/2019 11:43 AM PSTThe patient has no questions consent form is si gned we will proceed with upper endoscopyElectronically signed by Derik Pardo MD at 09/06 11:44 AM Derik Yates MD - 09/05/2019 9:35 AM PST PRE-ENDOSCOPY HISTORY AND PRE-SEDATION ASSESSMENT PATIENT NAME: Katherin Mota : 1965 TODAY'S DATE: 09/06/2019 PLANNED PROCEDURE: upper endoscopy PERTINENT HISTORY/INDICATION FOR PROCEDURE: Katherin Mota is a 54 y.o. female who i s undergoing upper endoscopy for evaluation of GERD and dysphagia. Patient complains of dys phagia and oral pharyngeal area and upper esophageal area primarily with capsules. She also complains of some retrosternal burning. She denies other supra esophageal manifestations o f reflux. Endoscopy 2012 showed nonerosive reflux disease mid esophageal biopsies were n egative for eosinophilic esophagitis PAST HISTORY: Past Medical History: Diagnosis Date Asthma Bronchitis Carpal tunnel syndrome Cervical spondylosis Degenerative cervical disc Edema Essential hypertension GERD (gastroesophageal reflux disease) Hyperlipidemia IBS (irritable bowel syndrome) Impaired fasting glucose Kidney stones Lumbar spondylosis Osteoarthritis Sacralization of lumbar vertebra Sleep apnea; uses cpap Spinal anomaly, congenital STD (female) UTI (urinary tract infection) PAST SURGICAL HISTORY Past Surgical History: Procedure Laterality Date CARPAL TUNNEL RELEASE Bilateral COLONOSCOPY 06/24/13 moderate colonic spasm. next due 10 years (06/07/2023) ENDOSCOPY 06/24/13 all bx negative SHOULDER SURGERY Left 2014 UPPER GASTROINTESTINAL ENDOSCOPY 06/24/13 HOME MEDS: Prior to Admission medications Medication Sig Taking? Calcium Carbonate (CALCIUM 500 PO) Take 1 tablet by mouth as needed. Cetirizine HCl (ZYRTEC ALLERGY PO) Take 1 tablet by mouth Daily as needed. Yes esomeprazole (NEXIUM) 20 mg capsule Take 1 capsule by mouth every morning (before breakfast ). Yes Estradiol-Norethindrone Acet 0.5-0.1 MG TABS Yes FLUoxetine (PROZAC) 20 mg capsule Take 2 capsules by mouth Daily. Yes ibuprofen (ADVIL, MOTRIN) 200 mg tablet Take 200 mg by mouth every 6 hours as needed. Multiple Vitamin (MULTIVITAMINS PO) Take 1 capsule by mouth Daily. Yes triamterene-hydrochlorothiazide (DYAZIDE) 37.5-25 MG per capsule Take 1 capsule by mouth ev sarah morning. Yes ALLERGIES Allergies Allergen Reactions Hydrocodone Nausea And Vomiting ASA CLASSIFICATION 3 EXAMINATION: Blood pressure 172/83, pulse 71, temperature 36.7 C (98.1 F), temperature source Tempor al, resp. rate 16, height 1.727 m (5' 8"), weight 107.8 kg (237 lb 10.5 oz), last menstrual period 07/18/2013, SpO2 99 %, not currently . General: Alert and orientedx3 Throat: Normal Lungs: Clear Heart: Regular rate and rhythm with out significant murmur Abdomen: obese, normal bowel sounds. Soft, nontender 1. Available medical records have been reviewed. [facility] 07/03/2019 proc edure note 11 2012 2. Medication list reviewed. IMPRESSION: dysphagia etiology be determined Patient appropriate for procedure. PLAN: 1. Proceed with procedure as stated above with propofol sedation/analgesia due to obesity a nd JANE. 2. Procedure, indications, risks and alternatives explained to patient/family and they agre ed to proceed and consent was signed. 3. Patient will be reevaluated immediately (1-2 minutes) before sedation administration and approved for the plan as stated above. Electronically Signed by: eDrik Pardo MD 09/06/2019 [facility] Portions of this chart may have been created with [employer]book voice recognition software. Occasi onal wrong-word or sound-alike substitutions may have occurred due to the inherent lewis itations of voice recognition software. Please read the chart carefully and recognize, using context, where these substitutions have occurred documented in this encounter Miscellaneous Notes Op Note - Derik Pardo MD - 09/06/2019 12:00 PM PSTUpper endoscopy was remarkable for an active gag reflex. No mechanical narrowing was noted in the esophagus. EG junction was pa tulous at 37 cm. There is some minor antral gastritis H. pylori biopsy was obtained. Duode nal mucosa appeared normal. Distal esophageal and mid esophageal biopsies were obtained. P atient was empirically dilated with 48 Pashto Patino dilator with no mucosal disruption see n in the hypopharynx or upper esophagus. Patient will continue on antireflux regimen and PP I therapy pending biopsy results 12: 00 PM PSTD-C Instructions Provation - Derik Pardo MD - 09/06/2019 11:32 AM PSTDischarge Instructions for Upper Endoscopy Patient: Katherin Mota : 1965 Acct: [id number] Exam Date: Friday, September 06, 2019 Doctor: Derik Pardo MD The chances of difficulty following this procedure are minimal. The following instructions will assist you in your recovery. 1. Do Not eat or drink anything for 1 hour. Try sips of water first. If tolerated, resume your regular diet or one recommended by your physician. 2. Do not drive, operate machinery, make critical decisions, or do activities that require coordination or balance for 24 hours. 3. You may experience a sore throat for 24 - 48 hours. You may use throat lozenges or gargle with warm salt water to relieve the discomfort. 4. Because air was put into your stomach druing the procedure, you may experience some belching. 5. Do not use any medication containing aspirin for 10 days, unless otherwise directed by your physician. 6. Sometimes the medications given to you druing the exam can aggravate the veins. The chemical irritation can cause inflammation or pain along the arm with redness, swelling and warmth. This does not mean there is an infection. You can treat the affected area by applying warm, wet compresses (towels) 4 times a day for 20 minutes at a time until inflammation is resolved 7. Report to your doctor: Chills and/or fever over 100 Persistent vomiting or vomiting with blood/nasal regurgitation Severe abdominal pain, other than gas cramps Severe chest pain Black, tarry stools You may reach your physician at Work: . If unable to reach your physician, call [facility] Emergency Department at Ext. [phone] Your doctor recommends these additional instructions: You have a contact number available for emergencies. The signs and symptoms of potential delayed complications were discussed with you. You may return to normal activities tomorrow. Written discharge instructions were provided to you. You are being discharged to home. Eat a mechanical soft diet today. Continue your present medications. Follow an antireflux regimen indefinitely. This includes: - Do not lie down for at least 3 to 4 hours after meals. - Raise the head of the bed 4 to 6 inches. - Decrease excess weight. - Avoid citrus juices and other acidic foods, alcohol, chocolate, mints, coffee and other caffeinated beverages, carbonated beverages, fatty and fried foods. - Avoid tight-fitting clothing. - Avoid cigarettes and other tobacco products. We are waiting for your pathology results. Return to your primary care physician as previously scheduled. Telephone your GI clinic for pathology results in one week. These instructions have been explained to the patient and/or escort. A copy has been given to the patient/escort. Nurse Signature Patient Signature Escort Signature Date Derik Pardo MD 09/06/2019 12:05:50 PM This report has been signed electronically.Electronically signed by Derik Pardo MD at 12:05 PM PSTdocumented in this encounter Plan of Treatment Not on filedocumented as of this encounter Procedures + +--------+ + + + | Procedure Name | Priori | Date/Time | Associated Diagnosis | Comments | | | ty | | | | + +--------+ + + + | HELICOBACTER PYLORI | Routin | 09/06/2019 | | Results for this | | BIOPSY | e | 11:48 AM | | procedure are in the | | | | PST | | results section. | + +--------+ + + + | EGD | | 09/06/2019 | Gastroesophageal | | | | | 11:40 AM | reflux disease, | | | | | PST | esophagitis presence | | | | | | not specified JANE | | | | | | (obstructive sleep | | | | | | apnea) | | + +--------+ + + + | *TERMED* [place] [facility] | Routin | 09/06/2019 | | Results for this | | ENDOSCOPY,EXAM | e | 11:32 AM | | procedure are in the | | | | PST | | results section. | + +--------+ + + + | SURGICAL PATHOLOGY | Routin | 09/06/2019 | | Results for this | | EXAM | e | 12:00 AM | | procedure are in the | | | | PST | | results section. | + +--------+ + + + documented in this encounter Results Helicobactor pylori Biopsy (09/06/2019 11:48 AM PST) + + + + + + | Component | Value | Ref Range | Performed | Pathologist | | | | | At | Signature | + + + + + + | Helicobacte | Negative | Negative | [facility] | | | r pylori Ag | | | [facility] - | | | | | | LABORATORY | | + + + + + + + + | Specimen | + + | Tissue - Specimen | | from stomach | | (specimen) | + + + + + + + | Performing | Address | City/State/Zipcode | Phone Number | | Organization | | | | + + + + + | [facility] | [address] | [place] | [phone] | | [facility] | | [address] | | | - LABORATORY | | | | + + + + + JEWEL (09/06/2019 11:32 AM PST) + + | Specimen | + + | | + + + + + | Narrative | Performed At | + + + | [facility] | [facility] | | [facility] CenterGastroenterologyPatient Name: Katherin Mota | [facility] | | KayeProcedure Date: 09/06/2019 11:32 AMN: [id number] Number: | | | [id number] of : 1965Note Status: FinalizedAttending MD: | | | Derik Pardo , MDProcedure Type: Upper GI | | | endoscopyIndications: Oropharyngeal phase dysphagia, | | | Esophageal reflux, Follow-up of | | | esophageal refluxReferring MD: Ric Bustillo, DO | | | (Referring MD)Medicines: Propofol per | | | AnesthesiaComplications: No immediate complications. | | | Estimated blood loss: | | | Minimal.Procedure: Pre-Anesthesia Assessment: - Prior to | | | the procedure, a History and Physical was performed, and | | | patient medications, allergies and sensitivities were reviewed. The | | | patient's tolerance of previous anesthesia was reviewed. - | | | Prior to the procedure, a History and Physical was performed, and | | | patient medications and allergies were reviewed. The patient is | | | competent. The risks and benefits of the procedure and the | | | sedation options and risks were discussed with the patient. All | | | questions were answered and informed consent was obtained. | | | Patient identification and proposed procedure were verified by | | | the physician, the nurse, the anesthesiologist and the | | | copy technician in the endoscopy suite. Mental Status Examination: | | | alert and oriented. Airway Examination: small/crowded | | | oropharyngeal airway and Mallampati Class III (part of the | | | uvula and soft palate visualized). Respiratory Examination: clear to | | | auscultation. CV Examination: normal. Prophylactic Antibiotics: | | | The patient does not require prophylactic antibiotics. Prior | | | Anticoagulants: The patient has taken no previous anticoagulant | | | or antiplatelet agents. ASA Grade Assessment: III - A patient | | | with severe systemic disease. After reviewing the risks and | | | benefits, the patient was deemed in satisfactory condition to | | | undergo the procedure. The anesthesia plan was to use monitored | | | anesthesia care (MAC). Immediately prior to administration of | | | medications, the patient was re-assessed for adequacy to | | | receive sedatives. The heart rate, respiratory rate, oxygen | | | saturations, blood pressure, adequacy of pulmonary ventilation, and | | | response to care were monitored throughout the procedure. The | | | physical status of the patient was re-assessed after the | | | procedure. - After reviewing the risks and benefits, the patient | | | was deemed in satisfactory condition to undergo the procedure. | | | - Using IV propofol under the supervision of an | | | anesthesiologist was determined to be medically necessary for | | | this procedure based on severe comorbidity (greater than ASA | | | Grade II) and patient's history of sleep apnea. - | | | Immediately prior to administration of medications, the patient was | | | re-assessed for adequacy to receive sedatives. - The heart | | | rate, respiratory rate, oxygen saturations, blood pressure, | | | adequacy of pulmonary ventilation, and response to care were monitored | | | throughout the procedure. - The physical status of the | | | patient was re-assessed after the procedure. After obtaining | | | informed consent, the endoscope was passed under direct vision. | | | Throughout the procedure, the patient's blood pressure, pulse, | | | and oxygen saturations were monitored continuously. The Endoscope was | | | introduced through the mouth, and advanced to the third part | | | of duodenum. The upper GI endoscopy was accomplished without | | | difficulty. The patient tolerated the procedure well.Findings: | | | The upper third of the esophagus was normal. The middle | | | third of the esophagus was normal. Biopsies were obtained from | | | the proximal and distal esophagus with cold forceps for histology | | | of suspected eosinophilic esophagitis. Estimated blood loss was | | | minimal. The distal esophagus was normal. The Z-line was | | | regular and was found 37 cm from the incisors. Biopsies were | | | taken with a cold forceps for histology. Verification of patient | | | identification for the specimen was done. Estimated blood loss was | | | minimal. A patulous lower esophageal sphincter was found. | | | The scope was withdrawn. Dilation was performed with a Patino | | | dilator with no resistance at 48 Fr. The dilation site was | | | examined following endoscope reinsertion and showed no change. | | | Localized mildly erythematous mucosa without bleeding was found | | | in the gastric antrum. Biopsies were taken with a cold forceps | | | for Helicobacter pylori testing using CLOtest. Verification of | | | patient identification for the specimen was done. Estimated | | | blood loss was minimal. The duodenal bulb, first portion of the | | | duodenum, second portion of the duodenum, area of the papilla | | | and third portion of the duodenum were normal. The | | | retroflexed view confirmed previous findings,Impression: - | | | Normal upper third of esophagus. - Normal middle third of | | | esophagus. Biopsied. - Normal distal esophagus. - Z-line | | | regular, 37 cm from the incisors. Biopsied. - Patulous lower | | | esophageal sphincter. Dilated. - Erythematous mucosa in the | | | antrum. Biopsied. - Normal duodenal bulb, first portion of the | | | duodenum, second portion of the duodenum, area of the papilla | | | and third portion of the duodenum. - The retroflexed view | | | confirmed previous findings,Recommendation: - Patient has a | | | contact number available for emergencies. The signs and | | | symptoms of potential delayed complications were discussed with the | | | patient. Return to normal activities tomorrow. Written discharge | | | instructions were provided to the patient. - Discharge | | | patient to home (ambulatory). - Mechanical soft diet today. | | | - Continue present medications. - Follow an antireflux | | | regimen indefinitely. - Await pathology results. - Return | | | to primary care physician as previously scheduled. - Telephone | | | GI clinic for pathology results in 1 week.Derik Pardo MD09/06/2019 | | | 12:05:50 PMThis report has been signed electronically.Note Initiated | | | On: 09/06/2019 11:32 AMNumber of Addenda: 0 [facility] | | | [facility] | | | instructions were provided to the patient. | | | - Discharge patient to home (ambulatory). | | | - Mechanical soft diet today. | | | - Continue present medications. | | | - Follow an antireflux regimen indefinitely. | | | - Await pathology results. | | | - Return to primary care physician as previously scheduled. | | | - Telephone GI clinic for pathology results in 1 week. | | |Derik Pardo MD | | |09/06/2019 12:05:50 PM | | |This report has been signed electronically. | | |Note Initiated On: 09/06/2019 11:32 AM | | |Number of Addenda: 0 | | | [facility] | | + + + + +---------+ + + | Performing | Address | City/State/Zipcode | Phone Number | | Organization | | | | + +---------+ + + | [facility] | | | | + +---------+ + + Surgical Pathology Exam (09/06/2019 12:00 AM PST) + + | Specimen | + + | | + + + + + | Narrative | Performed At | + + + | SPECIMEN(S): A DISTAL ESOPHAGEAL SPECIMEN(S): B MID ESOPHAGEAL | [facility] | | SPECIMEN SOURCE: A. DISTAL ESOPHAGEAL B. MID ESOPHAGEAL CLINICAL | [facility] | | HISTORY: K21.9 (gastroesophageal reflux disease without esophagitis) | | | , G47.33 (obstructive sleep apnea [adult] [pediatric]) | | | MICROSCOPIC DESCRIPTION: Histologic sections of all submitted blocks | | | are examined by light microscopy. These findings, together with the | | | gross examination, support the pathologic diagnosis. FINAL | | | PATHOLOGIC DIAGNOSIS: A. Distal esophageal biopsy: - Benign | | | esophageal mucosa with reactive epithelial features, negative for | | | increased epithelial eosinophils. - Negative for glandular mucosa. | | | B. Mid esophageal biopsy: - Benign esophageal mucosa with | | | reactive epithelial features, negative for increased epithelial | | | eosinophils. - Negative for glandular mucosa. [id number] | | | GROSS DESCRIPTION: Two specimens are received in two containers, | | | labeled "DP." A. The specimen, labeled "DP, A" and "distal | | | esophageal" on the requisition, is received in formalin and consists | | | of six soft montez flat tissue fragments that vary from 0.2-0.4 cm and | | | are submitted in toto in cassette (A1). B. The specimen, | | | labeled "DP, B" and "mid esophageal" on the requisition, is received | | | in formalin and consists of five soft montez flat tissue fragments that | | | vary from 0.2-0.3 cm and are submitted in toto in cassette (B1). SS | | | (under the direct supervision of a pathologist) The Gross | | | Description was prepared using a voice recognition system. The | | | report was reviewed for accuracy; however, sound-alike word errors, | | | addition and/or deletions may occur. If there is any question about | | | this report, please contact Client Services. PERFORMING | | | LABORATORY: The technical component was performed by [facility] | | | [facility], [address] [place], [place] [id number] ([employer]: | | | Ignacia De Oliveira MD; CLIA# [id number]). Professional interpretation was | | | performed by [facility], [facility] | | | [place], [address] [place] [id number] (Medical | | | Director: Esteban Del Toro M.D.). Diagnostician: Esteban Swartz | | | Alverto LAZO Pathologist Electronically Signed 09/09/2019 | | + + + + +---------+ + + | Performing | Address | City/State/Zipcode | Phone Number | | Organization | | | | + +---------+ + + | [facility] | | | | | [place] | | | | + +---------+ + + documented in this encounter Visit Diagnoses + + | Diagnosis | + + | Gastroesophageal reflux disease, esophagitis presence not specified | + + | JANE (obstructive sleep apnea) Obstructive sleep apnea (adult) (pediatric) | + + documented in this encounter Admitting Diagnoses + + | Diagnosis | + + | Gastroesophageal reflux disease, esophagitis presence not specified | + + | JANE (obstructive sleep apnea) Obstructive sleep apnea (adult) (pediatric) | + + documented in this encounter Administered Medications + +--------+---------+------+------+------+ | Medication Order | MAR | Action | Dose | Rate | Site | | | Action | Date | | | | + +--------+---------+------+------+------+ + +---+ | albuterol 2.5 mg/3 mL nebulizer | | | solution 2.5 mg 2.5 mg, | | | Nebulization, ONCE PRN, Wheezing, | | | Starting 09/06/19 at 1207, | | | For 1 dose, Notify anesthesia if | | | patient is wheezing and does not | | | have a history of asthma or COPD | | | or current smoking., | | | Recovery/Phase I | | + +---+ | | | + +---+ | albuterol-ipratropium 2.5-0.5 | | | mg/3 mL nebulizer solution 3 mL | | | 3 mL, Nebulization, ONCE PRN, | | | Wheezing, Starting Mon09/06/19 at | | | 1011, For 1 dose, Pre-op | | + +---+ | | | + +---+ | dextrose 50% injection 12.5-25 | | | g 12.5-25 g, Intravenous, EVERY | | | 15 MIN PRN, Low Blood Sugar, Give | | | 12.5g (25 mL) IV if blood | | | glucose 50-69 mg/dL. Give 25g | | | (50 mL) IV if blood glucose < 50, | | | Starting Mon09/06/19 at 1011, | | | Repeat in 15 min if blood glucose | | | remains < 70 mg/dL. Repeat | | | blood glucose in 30 min once | | | blood glucose > 70., Pre-op | | + +---+ | | | + +---+ | dextrose 50% injection 12.5-25 | | | g 12.5-25 g, Intravenous, EVERY | | | 15 MIN PRN, Low Blood Sugar, For | | | hypoglycemia. Give 12.5g (25ml) | | | IV if blood glucose 50-69 | | | mg/dL. Give 25g (50ml) IV if | | | blood glucose < 50, Starting Fri | | | 09/06/19 at 1207, Give over 2 min. | | | Repeat in 15 min if blood | | | glucose remains < 70 mg/dL. | | | Repeat blood glucose in 30 min | | | once blood glucose > 70., | | | Recovery/Phase I | | + +---+ | | | + +---+ + +---------+ +---+-------+---+ | lactated ringers (LR) infusion | New Bag | 09/06/19 | | 100 | | | at 100 mL/hr, Intravenous, | | 20 10:32 | | mL/hr | | | CONTINUOUS, Starting 09/06/19 | | AM PST | | | | | at 1030, Pre-op | | | | | | + +---------+ +---+-------+---+ + +---+ | | | + +---+ | ondansetron (ZOFRAN ODT) | | | disintegrating tablet 4 mg 4 mg, | | | Oral, EVERY 6 HOURS PRN, Nausea, | | | Vomiting, Starting 09/06/19 | | | at 1208, First line agent, | | | Post-op/Phase II | | + +---+ | | | + +---+ | ondansetron (ZOFRAN) injection | | | 4 mg 4 mg, Oral, EVERY 4 HOURS | | | PRN, Nausea, Vomiting, Starting | | | 09/06/19 at 1207, | | | Recovery/Phase I | | + +---+ | | | + +---+ | ondansetron (ZOFRAN) injection | | | 4 mg 4 mg, Intravenous, EVERY 4 | | | HOURS PRN, Nausea, Vomiting, | | | Starting 09/06/19 at 1207, | | | Recovery/Phase I | | + +---+ | | | + +---+ | ondansetron (ZOFRAN) injection | | | 4 mg 4 mg, Intravenous, EVERY 6 | | | HOURS PRN, Nausea, Vomiting, | | | Starting 09/06/19 at 1208, | | | First line agent. Use PO option | | | unless NPO status or unable to | | | tolerate., Post-op/Phase II | | + +---+ | | | + +---+ documented in this encounter
--- OUTSIDE RECORDS SUMMARY | ~2020-04-23 | XMS | Encounter Summary ---
Demographics + + + | Address | [address] | | | [place] [address] | + + + | Home Phone | | + + + | Preferred Language | Unknown | + + + | Marital Status | | + + + | Confucianist Affiliation | Unknown | + + + | Race | White | + + + | Ethnic Group | Not or | + + + Author + + + | Author | [facility] | | | and [place] | + + + | Organization | [facility] | | | and [place] | + + + | Address | Unknown | + + + | Phone | Unavailable | + + + Support + + + + + | Name | Relationship | Address | Phone | + + + + + | Justin Mota | ECON | [address] | | | | | [place], [place] | | | | | [address] | | + + + + + Care Team Providers + +------+ + | Care Batch Plant Supervisor Name | Role | Phone | + +------+ + | Vasiliy Bustillo DO | PCP | | + +------+ + Reason for Visit + +--------+ + | Reason | Onset | Comments | | | Date | | + +--------+ + | Medication Refill | 03/08/ | | | | 2017 | | + +--------+ + Encounter Details +--------+--------+ + + + | Date | Type | Department | Care Team | Description | +--------+--------+ + + + | 03/08/ | Refill | [facility] | Ally Otto, CC | Medication Refill | | 2017 | | [facility] | OFFICE SUPPORT CLERK | | | | | [facility] [address] | | | | | | [address] [facility], | | | | | | [place] [address] | | | | | | [phone] | | | +--------+--------+ + + + [...] Encounter - Ally Otto CC CMA - 03/08/2018 4:54 PM PDTUnsure of LAST OFFICE VISIT. Per our discussion you know this patient. Please sign script. RAHUL Fulton CMA documented in this encounter Plan of Treatment Not on filedocumented as of this encounter Visit Diagnoses Not on filedocumented in this encounter"
--- OUTSIDE RECORDS SUMMARY | ~2020-04-23 | XMS | Encounter Summary ---
Demographics + + + | Address | [address] | | | [place] [address] | + + + | Home Phone | | + + + | Preferred Language | Unknown | + + + | Marital Status | | + + + | Jain Affiliation | Unknown | + + + | Race | White | + + + | Ethnic Group | Not or | + + + Author + + + | Author | [facility] | | | and [place] | + + + | Organization | [facility] | | | and [...] [place], [place] | | | | | [address] | | + + + + + Care Team Providers + +------+ + | Care Certified Pedorthotist Name | Role | Phone | + [...] | | Gastroesopha | | [address], | | | | | geal reflux | | [address] | | | | | disease, | | [place], | | | | | esophagitis | | [place] [address] | | | | | presence not | | Phone: | | | | | specified | | [phone] | | | | | JANE | | Fax: | | | | | (obstructive | | [phone] | | | | | sleep | | | | | | | apnea) | | | | | | | Procedures | | | | | | | CT | | | | | | | ESOPHAGOGAST | | | | | | | RODUODENOSCO | | | | | | | PY TRANSORAL | | | | | | | DIAGNOSTIC | | | | | | | CT EGD | | | | | | | TRANSORAL | | | | | | | BIOPSY | | | | | | | SINGLE/MULTI | | | | | | | PLE CT | | | | | | | ANESTHESIA | | | | | | | UPPER GI | | | | | | | ENDOSCOPIC | | | | | | | PX NOS EGD | | | +--------+--------+ + + + + Encounter Details +--------+ + + + + | Date | Type | Department | Care Team | Description | +--------+ + + + + | 09/06/ | Hospital | [facility] | Derik Pardo MD | Gastroesophageal | | 2020 | Encounter | MED [facility] OP | [address], [place] | reflux disease, | | | | [address] | [address] [place], [place] | esophagitis presence | | | | [place], [place] | [address] | not specified; JANE | | | | [address] | | (obstructive sleep | | | | [phone] | | apnea); | | | | | | Oropharyngeal | | | | | | dysphagia | +--------+ + + + + Social [...] + + + | Blood Pressure | 159/92 | 09/06/2019 12:15 PM | | | | | PST | | + + + + + | Pulse | 81 | 09/06/2019 12:15 PM | | | | | PST | | + + + + + | Temperature | 36.7 C (98.1 F) | 09/06/2019 10:07 AM | | | | | PST | | + + + + + | Respiratory Rate | 16 | 09/06/2019 10:07 AM | | | | | PST | | + + + + + | Oxygen Saturation | 98% | 09/06/2019 12:15 PM | | | | | PST | [...] + | | | | 0 | 0924/20 | | | Estradiol-Norethindr | | | [...] 1. Available medical records have been reviewed. [facility] 07/03/2019 proc edure note 11 2012 2. [...] plan as stated above. Electronically Signed by: Derik Pardo MD 09/06/2019 [facility] Portions of this chart may have been created with [employer] voice recognition software. Occasi onal wrong-word or [...] P atient was empirically dilated with 48 Croatian Patino dilator with no mucosal disruption see n in the hypopharynx or upper esophagus. Patient will continue on antireflux regimen and PP I therapy pending biopsy results 12: 00 PM PSTD-C Instructions Provation - Derik Pardo MD - 09/06/2019 11:32 AM PSTDischarge Instructions for Upper Endoscopy Patient: Katherin Mota : 1965 Acct: [id number] Exam Date: Friday, September 06, 2019 Doctor: [...] If unable to reach your physician, call [facility] Emergency Department at Ext. 2500 Your doctor [...] + +--------+ + + + | *TERMED* CT UPPER GI | Routin | 09/06/2019 | [...] | + + + + + | [facility] | [address] | [place] | [phone] | | [facility] | | [address] | | | - LABORATORY | | | | + + + + + JEWEL (09/06/2019 11:32 AM PST) + + | Specimen | + + | | + + + + + | Narrative | Performed At | + + + | [facility] | [facility] | | [facility] | PROVATION | | SamanthaProcedure Date: 09/06/2019 11:32 AMMRN: [id number] Number: | | | [id number] of : 1965Note Status: FinalizedAttending MD: | [...] the anesthesiologist and the | | | biology specimen technician in the endoscopy suite. Mental Status [...] On: 09/06/2019 11:32 AMNumber of Addenda: [address] [facility] | | | [facility] | | | instructions were provided to [...] |Number of Addenda: 0 | | | [facility] | | + + + + +---------+ [...] | eosinophils. - Negative for glandular mucosa. JVR:[facility]:C2NR | | | GROSS DESCRIPTION: Two specimens [...] LABORATORY: The technical component was performed by [facility] | | | [facility] [address] (Bail Bonding Agent: | | | Ignacia De Oliveira MD; CLIA# [id number]). Professional interpretation was | | | performed by [employer] | | | [address] [address] (Medical | | | Director: Esteban Del [...] sleep apnea (adult) (pediatric) | + + | Oropharyngeal dysphagia Dysphagia, oropharyngeal phase | + + | Obstructive sleep apnea on CPAP Obstructive sleep apnea (adult) (pediatric) | + + | HTN (hypertension) Unspecified essential hypertension | + + documented in this encounter [...] glucose < 50, | | | Starting 09/06/19 at 1011, | | | Repeat in [...]
--- OUTSIDE RECORDS SUMMARY | ~2020-04-23 | XMS | Encounter Summary ---
Demographics + + + | Address | [address] | | | [place] [address] | + + + | Home Phone | | + + + | Preferred Language | Unknown | + + + | Marital Status | | + + + | Scientologist Affiliation | Unknown | + + + | Race | White | + + + | Ethnic Group | Not or | + + + Author + + + | Author | [facility] | | | and [place] | + + + | Organization | [facility] | | | and [place] | + + + | Address | Unknown | + + + | Phone | Unavailable | + + + Support + + + + + | Name | Relationship | Address | Phone | + + + + + | Justin Mota | ECON | [address] | | | | | [place], [place] | | | | | [address] | | + + + + + Care Team Providers + +------+ + | Care Freight Rate Clerk Name | Role | Phone | + +------+ + | Vasiliy Bustillo DO | PCP | | + +------+ + Reason for Visit + + + | Reason | Comments | + + + | Follow-up | egd and colonoscopy | + + + Evaluate & Treat [...] | MODA/ | DO [address] | JOB COST ESTIMATOR [address] | | | | Gastroenterol | IVY | [address] | [address] | | | | ogy | Procedures | [place] | [address] | | | | | [place] OFFICE | [address] | [place], | | | | | OUTPATIENT | Phone: | [place] [address] | | | | | VISIT 25 | [phone] | Phone: | | | | | MINUTES | Fax: | [phone] | | | | | | [phone] | Fax: | | | | | | | [phone] | +--------+--------+ + + + + Encounter Details +--------+---------+ + + + | Date | Type | Department | Care Team | Description | +--------+---------+ + + + | 07/18/ | Office | [facility] | [facility], | Heartburn (Primary | | 2012 | Visit | GASTROENTEROLOGY | PARAG [facility] [address] | Dx); Colon spasm; | | | | [address] | [address] | Fecal urgency | | | | [address] [place], [place] | [place], [place] | | | | | [address] | [address] | | | | | [phone] | | | +--------+---------+ + + + [...] + + + | Blood Pressure | 124/78 | 07/18/2013 8:35 AM | | | | | PST | | + + + + + | Pulse | 60 | 07/18/2013 8:35 AM | | | | | PST | | + + + + + | Temperature | 36.6 C (97.8 F) | 07/18/2013 8:35 AM | | | | | PST | | + + + + + | Respiratory Rate | 16 | 07/18/2013 8:35 AM | | | | | PST | | + + + + + | Oxygen Saturation | - | - | | + + + + + | Inhaled Oxygen | - | - | | | Concentration | | | | + + + + + | Weight | 102.5 kg (226 lb) | 07/18/2013 8:35 AM | | | | | PST | | + + + + + | Height | 170.2 cm (5' 7") | 07/18/2013 8:35 AM | | | | | PST | | + + + + + | Body Mass Index | 35.4 | 07/18/2013 8:35 AM | | | | | PST | | + + + + + documented in this encounter Patient Instructions Patient Instructions Rhina Johnson ARNP - 07/18/2013 8:49 AM PSTGastro-esophageal R eflux Disease Obtain or maintain normal Body Mass Index Avoid/limit trigger foods- chocolate, peppermint, coffee, onions, garlic, spicy foods, ac idic foods, etc. Sleep with head of bead elevated 30 degrees Do not lay flat within 3 hours of eating Stop smoking and other tobacco products Low fat diet Avoid tight fitting clothes (especially around waist) Avoid excess alcohol Upper endoscopy for Lira s esophagus screening Proton Pump Inhibitors- Prilosec (omeprazole), Prevacid (lansoprazole), Nexium (esomepraz ole), and Dexilant (dexilansoprazole)- are generally safe. If ferry terminal agent use, consider Calciu m and Vitamin D supplements. Herbal remedies sometimes used for GERD symptoms include licorice, slippery elm, chamomil e, and marshmallow. Herbal remedies can have serious side effects and they may interfere wit h medications. Ask your doctor before starting herbal regimen. Accupuncture Irritable Bowel Syndrome: Self Care and Non-Pharmacologic Treatments Regular Cardiovascular Exercise (30 minutes, 3-5 times per week) FODMAP dietary changes Stress Relief: yoga, massage, acupuncture, meditation, expressive writing, hypnosis Probiotics Eating meals at regular intervals (not skipping meals or excessive snacking between meals ) Peppermint oil enteric-coated capsules (non-enteric coated capsules can cause heartburn) Other herbal medicines that have historically been used for IBS include chamomile, rosema ry, valerian, radha, and lemon balm. Counseling High fiber diet: bananas, oranges, strawberries, blueberries, tomatoes, carrots, corn, br own rice, wild rice, gluten free breads, pastas and oatmeal. Expressive writing: Am J Gastroenterol 2010; 105:2440 2448; doi:10.1038/ajg.2010.246;publ ished online 19 January 2010 Accupuncture: Am J Gastroenterol 2010;105:699; doi:10.1038/ajg.2009.647: Exercise: Am J Gastroenterol advance online publication 10 August 2010; doi: 10.1038/ajg.20 10.480 Peppermint: [place] Journal of Gastroenterology (1998) 93, 7249 4934; doi:10.1111/j.1572 -0241.1998.24261.x Probiotics: Am J Gastroenterol 2009; 104:1033 1049; doi:10.1038/ajg.2009.25; published on line 14 October 2008 FODMAP Elimination Diet: Malabsorption of fructose and short-chain carbohydrates Useful for Irritable Bowel Syndrome, Functional Diarrhea, Functional Dyspepsia, Functiona l Bloating, Lactose and Gluten Sensitivities. Review checklist for common foods in your diet. Limit/Eliminate these foods in your diet. Try for 8 weeks. Then attempt to reintroduce foods slowly (one new food every 2 weeks). W atc for signs of recurrent symptoms when reintroducing foods. FODMAP checklist- common problematic foods Fruit: apple, pear, guava, honeydew, jolanta, pear, papaya, quince, star fruit, water melon. Stone fruits: apricots, peaches, cherries, plums, nectarines. Fruits with high sugar content: grapes, persimmon, lychee. Dried fruit. Fruit juice, canned packing juice. Dried Fruit Bars. Fruit pastas and sauces: tomato paste, chutney, relish, plum sauce, sweet and sour sauce, barbeque sauce. Fruit juice concentrate. Fructose as an added sweetener. High fructose corn syrup or corn syrup solids including: fruit drinks, carbonated drinks, pancake syrup, catsup, jams, jellies, pickle, relish, and/or liquid cough remedies, and liq uid pain relievers. Honey. Coconut milk. Fortified chago: venessa, port, etc. Vegetables: onion anthony, asparagus, artichokes, cabbage, Brussel sprouts, beans. Wheat or white bread. Wheat pasta, noodles. Wheat based cereals. Wheat based cakes. Chickory-based coffee- substitute beverages. Artificial sweeteners: sorbitol, mannitol, isomall, xylitol. If Lactose Malabsorption: milk, ice cream, yogurt. documented in this encounter Progress Notes Rhina Johnson ARNP - 07/18/2013 8:41 AM PSTFormatting of this note might be differe nt from the original. Katherin Mota is a 48 y.o. female here for followup EGD and colonoscopy for heartburn and fecal urgency. History of present illness: Diarrhea had improved. Stools are harder and smaller. She continues to have urgency. Does n ot feel as though bowels are completely emptying. Heartburn in the same. She thinks probiotics have helped some. Allergies Allergen Reactions Hydrocodone vomting Past Medical History Diagnosis Date Carpal tunnel syndrome Degenerative cervical disc Cervical spondylosis Spinal anomaly, congenital Sacralization of lumbar vertebra Edema Essential hypertension GERD (gastroesophageal reflux disease) Hyperlipidemia IBS (irritable bowel syndrome) Impaired fasting glucose Lumbar spondylosis Osteoarthritis Kidney stones Bronchitis UTI (urinary tract infection) Asthma STD (female) Past Surgical History Procedure Date Carpal tunnel release left hand Endoscopy 06/24/13 all bx negative Colonoscopy 06/24/13 Upper gastrointestinal endoscopy 06/24/13 History reviewed. No pertinent family history. History [...] any fevers, chills, or unintentional weight loss. Respiratory:Denies shortness of breath, cough or wheezing. Gastrointestinal:Negative except as stated above. Cardiovascular:Denies chest pain, palpitations, or swelling to legs Physical exam: General: Alert and oriented, NAD Eyes: Sclera clear, MMM Extremities: No clubbing or edema Skin: Warm, dry, intact. No rashes noted Neuro: Cranial nerves 2-12 grossly intact. Psych: Appropriate mood and affect. Hospital Outpatient Visit on 06/24/2013 Component Date Value Range Status GASTRIC BIOPSY UREASE TEST 06/24/2013 Final Value:H. PYLORI BIOPSY: Negative for Urease SOURCE 06/24/2013 STOOL Final Fecal Leukocytes 06/24/2013 1+ WBC Final Gram Stain Result 06/24/2013 Final Value:GRAM STAIN: NO WBC SEEN MIXED INDIGENOUS TIFFANY CULTURE BACTERIA STOOL 06/24/2013 Final Value:Indig/Tiffany (Reportable) Many Mixed Indigenous Tiffany No Salmonella, Shigella, Aeromonas, Pleisiomonas or Yersinia isolated. Final Report (Reportable) - E coli, Shiga toxin Assay 06/24/2013 Final Value: Negative for Shiga Toxin-producing strain of Escherichia coli (STEC). Physician Note: Symptoms of STEC are not well differentiated and may resemble Appendicitis, Inflammatory Bowel Disease, Infectious Colitis, and C. Difficile Associated Disease. RESULT: NEGATIVE CAMPYLOBACTER AG BY EIA 06/24/2013 Final Value: Negative for CAMPYLOBACTER SPECIES. RESULT: NEGATIVE Giardia Antigen, Stool 06/24/2013 Final Value: Negative for Giardia Lamblia Antigen by Rapid Immunoassay. Cryptosporidium Antigen 06/24/2013 Final Value: Negative for Cryptosporidium Antigen by Rapid Immunoassay testing. FECAL OCCULT BLD 06/24/2013 Final Value:Date: 06/24/13 Card #1 Occult Blood: Negative Ova + Parasite Exam 06/24/2013 Final Value:Accession No. [id number] Specimen Source Stool Result CONCENTRATED WET MOUNT: No Ova or Parasites seen TRICHROME STAIN: No Ova or Parasites seen. Few fecal leukocytes seen. This test will not detect Cyclospora, Cryptosporidium or Isospora. For those organisms refer to Coccidia Stain (test code CRYSM). Specimen Status 06/24/2013 Final Value:Report Status Final 06/25/2013 Testing Performed: [facility], [address] [place] [address] [address] CLIA: [id number] C difficile Toxins A+B, EIA 06/24/2013 Final Value: No Clostridium Difficile toxin detected. Up to 3 stool specimens (not more than 1 per day) tested per patient. RESULT: NEGATIVE EGD 06/24/2013: Impression: - Normal cricopharyngeus, upper third of esophagus, middle third of esophagus and lower third of esophagus. Dilated. Biopsied. - Gaping lower esophageal sphincter. - Gastritis. Biopsied. - Normal duodenal bulb, first part of the duodenum, 2nd part of the duodenum, area of the papilla and 3rd part of the duodenum. Biopsied. - The retroflexed view confirmed previous findings, Colonoscopy 06/24/2013: Impression: - Moderate colonic spasm consistent with irritable bowel syndrome. Biopsied. - The examined portion of the ileum was normal. Biopsied. - The examination was otherwise normal. - The distal rectum and anal verge are normal on retroflexion view. Pathology 06/24/2013: A. Duodenal biopsy: - Benign duodenal mucosa, negative for specific diagnostic abnormality. B. Mid Esophageal biopsy: - Benign esophageal mucosa - Negative for increased epithelial eosinophils, intestinal metaplasia, or fungal organisms . C. Terminal ileum biopsy: - Benign small bowel mucosa, negative for specific diagnostic abnormality. D. Sigmoid colon biopsy: - Benign colonic mucosa, negative for diagnostic specific abnormality. Assessment 1. Heartburn 2. Colon spasm likely secondary to irritable bowel 3. Fecal urgency likely secondary to irritable bowel Plan: Patient given handout for IBS. Patient given copy of the FODMAP diet to determine if malabsorption as a cause for symptoms . Information on gastroesophageal reflux given to patient as well. Discussed exercise and low-fat diet. Patient is to call with any question or concerns. Any fevers, chills, chest pain, SOB or o ther serious symptoms patient is to call the office or go to ER Cc: Vasiliy Bustillo Reviewed most recent labs, imaging, and procedures. This note was dictated using voice recognition software. Please contact me if there are an y questions regarding its content. Electronically signed by PARAG Tello at 07/08 9:11 PM PSTdocumented in this encounter Plan of Treatment Not on filedocumented as of this encounter Visit Diagnoses + + | Diagnosis | + + | Heartburn - Primary | + + | Colon spasm Irritable bowel syndrome | + + | Fecal urgency | + + documented in this encounter
--- OUTSIDE RECORDS SUMMARY | ~2020-04-23 | XMS | Encounter Summary ---
Demographics + + + | Address | [address] | | | [place] [address] | + + + | Home Phone | | + + + | Preferred Language | Unknown | + + + | Marital Status | | + + + | Adventism Affiliation | Unknown | + + + | Race | White | + + + | Ethnic Group | Not or | + + + Author + + + | Author | [facility] | | | and [place] | + + + | Organization | [facility] | | [...] [place], [place] | | | | | [address] | | + + + + + Care Team Providers + +------+ + | Care Radio Script Writer Name | Role | Phone | + +------+ + | Vasiliy Bustillo DO | PCP | | + +------+ + Reason for Visit +---------+--------+ + | Reason | Onset | Comments | | | Date | | +---------+--------+ + | Results | 09/12/ | | | | 2020 | | +---------+--------+ + Encounter Details +--------+ + + + + | Date | Type | Department | Care Team | Description | +--------+ + + + + | 09/12/ | Telephone | [facility] | Vasiliy Bustillo | Results | | 2020 | | [facility] | E, DO [address] | | | | | MED[facility] CL[facility] | [place], [place] | | | | | [address] [place], | [address] | | | | | [place] [address] | [phone] | | | | | [phone] | | | +--------+ + + + [...] this encounter Miscellaneous Notes Telephone Encounter - Neha Yuen CMA - 09/12/2019 2:43 PM PSTMade contact with pt re garding lab results. Pt was informed of most recent result notes. Pt acknowledged. Neha Yuen CMA elephone Encounter - Neha Yuen CMA - 09/12/2019 2:40 PM PST----- Message from Justice Cortez DNP sent a t 09/12/2019 2:10 PM PST ----- Current labs look great. There are no abnormalities on the CBC and the urinalysis is not c oncerning. documented in this encounter Plan of Treatment Not on filedocumented as of this encounter Visit Diagnoses Not on filedocumented in this encounter"
--- OUTSIDE RECORDS SUMMARY | ~2020-04-23 | XMS | Encounter Summary ---
Demographics + + + | Address | [address] | | | [place] [address] | + + + | Home Phone | | + + + | Preferred Language | Unknown | + + + | Marital Status | | + + + | Shinto Affiliation | Unknown | + + + | Race | White | + + + | Ethnic Group | Not or | + + + Author + + + | Author | [facility] | | | and [place] | + + + | Organization | [facility] | | | [...] [place], [place] | | | | | [address] | | + + + + + Care Team Providers + +------+ + | Care Corporate Controller Name | Role | Phone | + +------+ + | Vasiliy Bustillo DO | PCP | | + +------+ + Reason for Visit + +--------+ + | Reason | Onset | Comments | | | Date | | + +--------+ + | Medication Refill | 04/03/ | | | | 2017 | | + +--------+ + Encounter Details +--------+--------+ + + + | Date | Type | Department | Care Team | Description | +--------+--------+ + + + | 04/03/ | Refill | [facility] | Vasiliy Bustillo | Medication Refill | | 2017 | | [facility] | E, DO [address] | | | | | MED[facility] CL[facility] | [place] | | | | [address] [place], | [address] | | | | | [place] [address] | [phone] | | | | | [phone] | | | +--------+--------+ + + + [...] Encounter - Ally Otto CC CMA - 04/03/2018 9:17 AM PDTUnsure of LAST OFFICE VISIT. RAHUL Fulton CMA elephone Aline Pace - 04/03/2018 9:08 AM PDTFLUoxetine (PROZAC) 20 mg capsule triamterene-hydrochlorothiazide (DYAZIDE) 37.5-25 MG per capsule [facility] I sent Medical Record Request to [facility] office today Aline Hernandez documented in this encou nter Plan of Treatment Not on filedocumented as of this encounter Visit Diagnoses Not on filedocumented in this encounter"
--- OUTSIDE RECORDS SUMMARY | ~2020-04-23 | XMS | Encounter Summary ---
Demographics + + + | Address | [address] | | | [place] [address] | + + + | Home Phone | | + + + | Preferred Language | Unknown | + + + | Marital Status | | + + + | Mandaen Affiliation | Unknown | + + + | Race | White | + + + | Ethnic Group | Not or | + + + Author + + + | Author | [facility] | | | and [place] | + + + | Organization | [facility] | | | and [...] [place], [place] | | | | | [address] | | + + + + + Care Team Providers + +------+ + | Care Whiteprinting Machine Operator Name | Role | Phone | + +------+ + | Vasiliy Bustillo DO | PCP | | + +------+ + Encounter Details +--------+ + + + + | Date | Type | Department | Care Team | Description | +--------+ + + + + | 05/30/ | Abstract | [facility] | Vasiliy Bustillo | | | 2017 | | [facility] | E, DO [address] | | | | | MEDICAL CLIN[address] | [place], [place] | | | | | [address] [place], | [address] | | | | | [place] [address] | [phone] | | | | | [phone] | | | +--------+ + + + [...] | + +--------+ + + + | EXTERNAL LAB: TSH | Routin | 11/14/2016 | | Results for this | | | e | | | procedure are in the | | | | | | results section. | + +--------+ + + + | EXTERNAL LAB: | Routin | 11/14/2016 | | Results for this | | TRIGLYCERIDES | e | | | procedure are in the | | | | | | results section. | + +--------+ + + + | EXTERNAL LAB: | Routin | 11/14/2016 | | Results for this | | CHOLESTEROL, HDL | e | | | procedure are in the | | | | | | results section. | + +--------+ + + + | EXTERNAL LAB: | Routin | 11/14/2016 | | Results for this | | CHOLESTEROL, TOTAL | e | | | procedure are in the | | | | | | results section. | + +--------+ + + + | EXTERNAL LAB: | Routin | 11/14/2016 | | Results for this | | CHOLESTEROL, LDL | e | | | procedure are in the | | | | | | results section. | + +--------+ + + + | EXTERNAL LAB: EGFR | Routin | 11/14/2016 | | Results for this | | | e | | | procedure are in the | | | | | | results section. | + +--------+ + + + | EXTERNAL LAB: | Routin | 11/14/2016 | | Results for this | | CREATININE | e | | | procedure are in the | | | | | | results section. | + +--------+ + + + | EXTERNAL LAB: | Routin | 11/14/2016 | | Results for this | | HEMOGLOBIN A1C | e | | | procedure are in the | | | | | | results section. | + +--------+ + + + | EXTERNAL: | Routin | 06/24/2013 | | Results for this | | COLONOSCOPY | e | | | procedure are in the | | | | | | results section. | + +--------+ + + + documented in this encounter Results External Lab: TSH (11/14/2016) + +-------+ + + + | Component | Value | Ref Range | Performed | Pathologist | | | | | At | Signature | + +-------+ + + + | TSH, | 2.13 | | | | | External | | | | | + +-------+ + + + + + | Specimen | + + | Blood | + + External Lab: Triglycerides (11/14/2016) + +-------+ + + + | Component | Value | Ref Range | Performed | Pathologist | | | | | At | Signature | + +-------+ + + + | Triglycerid | 149 | | | | | es, | | | | | | External | | | | | + +-------+ + + + + + | Specimen | + + | Blood | + + External Lab: Cholesterol, HDL (11/14/2016) + +-------+ + + + | Component | Value | Ref Range | Performed | Pathologist | | | | | At | Signature | + +-------+ + + + | HDL | 47.6 | mg/dl | | | | Cholesterol | | | | | | , External | | | | | + +-------+ + + + + + | Specimen | + + | Blood | + + External Lab: Cholesterol, Total (11/14/2016) + +-------+ + + + | Component | Value | Ref Range | Performed | Pathologist | | | | | At | Signature | + +-------+ + + + | Cholesterol | 221 | mg/dl | | | | , Total, | | | | | | External | | | | | + +-------+ + + + + + | Specimen | + + | Blood | + + External Lab: Cholesterol, LDL (11/14/2016) + +-------+ + + + | Component | Value | Ref Range | Performed | Pathologist | | | | | At | Signature | + +-------+ + + + | LDL | 144 | | | | | Cholesterol | | | | | | , Direct, | | | | | | External | | | | | + +-------+ + + + + + | Specimen | + + | Blood | + + External Lab: eGFR (11/14/2016) + +-------+ + + + | Component | Value | Ref Range | Performed | Pathologist | | | | | At | Signature | + +-------+ + + + | eGFR, | 99 | | | | | External | | | | | + +-------+ + + + + + | Specimen | + + | Blood | + + External Lab: Creatinine (11/14/2016) + +-------+ + + + | Component | Value | Ref Range | Performed | Pathologist | | | | | At | Signature | + +-------+ + + + | Creatinine, | 0.63 | | | | | External | | | | | + +-------+ + + + + + | Specimen | + + | Blood | + + External Lab: Hemoglobin A1c (11/14/2016) + +-------+ + + + | Component | Value | Ref Range | Performed | Pathologist | | | | | At | Signature | + +-------+ + + + | Hemoglobin | 5.4 | % | | | | A1c, | | | | | | external | | | | | + +-------+ + + + + + | Specimen | + + | Blood | + + EXTERNAL: COLONOSCOPY (06/24/2013) + + + + + + | Component | Value | Ref Range | Performed | Pathologist | | | | | At | Signature | + + + + + + | Colonoscopy | Findings: Visually | | | | | | within normal limits and | | | | | Impression, | biopsies of the | | | | | External | terminal ileum and | | | | | | sigmoid colon were | | | | | | normal. She did have | | | | | | some colonic spasm which | | | | | | can be an indicator of | | | | | | irritable bowel | | | | | | syndrome; Plan: Repeat | | | | | | in 10 years.Comment: | | | | | | Surgeon: Derik Pardo, | | | | | | [facility], [place] | | | | + + + + + + documented in this encounter Visit Diagnoses Not on filedocumented in this encounter"
--- OUTSIDE RECORDS SUMMARY | ~2020-04-23 | XMS | Encounter Summary ---
Demographics + + + | Address | [address] | | | [place] [address] | + + + | Home Phone | | + + + | Preferred Language | Unknown | + + + | Marital Status | | + + + | Judaism Affiliation | Unknown | + + + | Race | White | + + + | Ethnic Group | Not or | + + + Author + + + | Author | [facility] | | | and [place] | + + + | Organization | [facility] | | [...] [place], [place] | | | | | [address] | | + + + + + Care Team Providers + +------+ + | Care Ball Assembler Name | Role | Phone | + +------+ + | Vasiliy Bustillo DO | PCP | | + +------+ + Reason for Visit + + + | Reason | Comments | + + + | Establish Care | Re-establish care | + + + | Work Related Injury | 05/10/2018 Per pt injury from picking up the garbage and taking a | | | couple of steps, she then and experienced sharp pain in the knee | | | cap. | + + + Encounter Details +--------+---------+ + + + | Date | Type | Department | Care Team | Description | +--------+---------+ + + + | 06/01/ | Office | [facility] | Vasiliy Bustillo | Knee strain, left, | | 2018 | Visit | [facility] | E, DO [address] | initial encounter | | | | MEDICAL CL[address] | [place], [place] | (Primary Dx); | | | | [address] [place], | [address] | Chondromalacia | | | | [place] [address] | [phone] | | | | | [phone] | | | +--------+---------+ + + + [...] | | | + +---+---+---+ + + | Tobacco Cessation: Counseling Given: No | + + + + +---------+ + | Alcohol Use [...] + + + | Blood Pressure | 140/70 | 06/01/2018 2:39 PM | | | | | PDT | | + + + + + | Pulse | 83 | 06/01/2018 2:39 PM | | | | | PDT | | + + + + + | Temperature | 36.8 C (98.3 F) | 06/01/2018 2:39 PM | | | | | PDT | | + + + + + | Respiratory Rate | 18 | 06/01/2018 2:39 PM | | | | | PDT | | + + + + + | Oxygen Saturation | 98% | 06/01/2018 2:39 PM | | | | | PDT | | + + + + + | Inhaled Oxygen | - | - | | | Concentration | | | | + + + + + | Weight | 109.3 kg (241 lb) | 06/01/2018 2:39 PM | | | | | PDT | | + + + + + | Height | 170.2 cm (5' 7") | 06/01/2018 2:39 PM | | | | | PDT | | + + + + + | Body Mass Index | 37.75 | 06/01/2018 2:39 PM | | | | | PDT | | + + + + + documented in this encounter Progress Notes Vasiliy Bustillo DO - 06/01/2018 2:30 PM PDT Patient ID: Katherin Mota is a 53 y.o. year old female Chief Complaint: Chief Complaint Patient presents with Establish Care Re-establish care Work Related Injury 05/10/2018 Per pt injury from picking up the garbage and taking a couple of steps, she th en and experienced sharp pain in the knee cap. Assessment Knee strain, left, initial encounter (Primary) Chondromalacia Plan -Exercises leg extension -Continue wearing knee brace -Ice daily -Use Ibuprofen when needed for pain, try to avoid daily use -Follow up if symptoms worsen 40 minute visit with > 50% time spent in counseling. Subjective: CAILIN Pandey presents to the clinic today for initial visit for work related injury. 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 This was 04/10/2018. She did not buckle, did not fall. That ev ening the knee hurt a little bit. The next morning when she woke up the knee was stiff. The knee was not warm or red. She went to work still that day. Then while at work she was moving the table and it bent her knee back. The next night she called her boss, and was advised th at if she needed to seek medical attention she could. She was seen 04/11/2018 in the ER and th cheryl advised she was not an emergent appointment, they sent her to the walk in clinic. She was seen in the [employer] on Monday04/13/18, they put her on limited duty. On 04/25/18 the [employer] gave her a hinge knee brace. She was also given 800 mg Ibuprofen she is using these less then half t he week. The last one was last night. The stiffness is located in the front. She is about 95 % better since the original accident. 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 Current Outpatient Prescriptions Medication Sig Dispense Refill Calcium Carbonate (CALCIUM 500 PO) Take 1 tablet by mouth as needed. FLUoxetine (PROZAC) 20 mg capsule Take 1 capsule by mouth Daily. 30 capsule 1 ibuprofen (ADVIL, MOTRIN) 200 mg tablet Take 200 mg by mouth every 6 hours as needed. Multiple Vitamin (MULTIVITAMINS PO) Take 1 capsule by mouth Daily. omeprazole (PRILOSEC) 20 mg capsule Take 1 capsule by mouth 2 times daily. 60 capsule 2 triamterene-hydrochlorothiazide (DYAZIDE) 37.5-25 MG per capsule Take 1 capsule by mout h every morning. 90 capsule 1 UNCODED DME LEFT knee brace No current facility-administered medications for this visit. Patient Active Problem List Diagnosis Carpal tunnel syndrome Cervical spondylosis Essential hypertension GERD (gastroesophageal reflux disease) Hyperlipidemia IBS (irritable bowel syndrome) Impaired fasting glucose Lumbar spondylosis Osteoarthritis Depression Family History Problem Relation Age of Onset Breast cancer Mother Heart failure Father 80 No Known Problems Sister No Known Problems Brother Past Surgical History: Procedure Laterality Date CARPAL TUNNEL RELEASE Bilateral COLONOSCOPY 06/24/13 moderate colonic spasm. next due 10 years (06/07/2023) ENDOSCOPY 06/24/13 all bx negative SHOULDER SURGERY Left 2015 UPPER GASTROINTESTINAL ENDOSCOPY 06/24/13 Social History Social History Marital status: Spouse name: N/A Number of children: N/A Years of education: N/A Occupational History Not on file. Social History Main Topics Smoking status: Never Smoker Smokeless tobacco: Never Used Alcohol use No Drug use: No Sexual activity: No Other Topics Concern Not on file Social History Narrative No narrative on file Allergies Allergen Reactions Hydrocodone vomting Review of Systems Constitutional: Negative for fatigue and fever. Respiratory: Negative for cough, chest tightness, shortness of breath and wheezing. Cardiovascular: Negative for chest pain and palpitations. Gastrointestinal: Negative for abdominal pain, nausea and vomiting. Musculoskeletal: Negative for gait problem and myalgias. Right knee pain Neurological: Negative for dizziness, syncope and headaches. Psychiatric/Behavioral: The patient is not nervous/anxious. Objective: Vitals: BP 140/70 | Pulse 83 | Temp 36.8 C (98.3 F) (Oral) | Resp 18 | Ht 1.702 m (5' 7") | Wt 109.3 kg (241 lb) | LMP 07/18/2013 | SpO2 98% | ? No | BMI 37.75 kg/m Physical Exam Constitutional: She appears well-developed and well-nourished. HENT: Head: Atraumatic. Eyes: Pupils are equal, round, and reactive to light. EOM are normal. Cardiovascular: Normal rate, regular rhythm and normal heart sounds. Pulmonary/Chest: Effort normal and breath sounds normal. Musculoskeletal: Crepitance bilateral knee Left knee - Warm to touch no edema, positive apprehension test, ligament laxity Neurological: She is alert. Skin: Skin is warm and dry. Psychiatric: She has a normal mood and affect. Entered by Aaron Pérez, acting as scribe for Dr. Keny DO. The documentation recorded by the scribe accurately reflects the service I personally perfo rmed and the decisions made by me. Dr. Vasiliy Bustillo DO. 06/01/2018 15:30Electronically signed by DO jeny De Souza 06/01/2018 3:31 PM Ally Perdue CC CMA - 06/01/2018 2:30 PM Dora weiss resents today with Chief Complaint of: Re-establish care. 05/10/2018 Per pt injury from pic leslie up the garbage and taking a couple of steps, she then and experienced sharp pain in the knee cap. Current medications verified with her at time of visit. Pt currently shows no s/s of distress, shortness of breath. Vital signs: BP 140/70 | Pulse 83 | Temp 36.8 C (98.3 F) (Oral) | Resp 18 | Ht 1.70 2 m (5' 7") | Wt 109.3 kg (241 lb) | LMP 07/18/2013 | SpO2 98% | ? No | BM I 37.75 kg/m Labs Obtained per protocol: None. Verbal Report given to: Vasiliy Bustillo DO. RAHUL Fulton CMA documented in this encounter Plan of Treatment Not on filedocumented as of this encounter Visit Diagnoses + + | Diagnosis | + + | Knee strain, left, initial encounter - Primary | + + | Chondromalacia | + + documented in this encounter
--- OUTSIDE RECORDS SUMMARY | ~2020-04-23 | XMS | Encounter Summary ---
Demographics + + + | Address | [address] | | | [place] [address] | + + + | Home Phone | | + + + | Preferred Language | Unknown | + + + | Marital Status | | + + + | Sabianist Affiliation | Unknown | + + + | Race | White | + + + | Ethnic Group | Not or | + + + Author + + + | Author | [facility] | | | and [place] | + + + | Organization | [facility] | | | and [...] [place], [place] | | | | | [address] | | + + + + + Care Team Providers + +------+ + | Care Call Center Director Name | Role | Phone | + +------+ + | Vasiliy Bustillo DO | PCP | | + +------+ + Reason for Visit +--------+--------+ + | Reason | Onset | Comments | | | Date | | +--------+--------+ + | DME | 06/14/ | CPAP Supplies | | | 2019 | | +--------+--------+ + Encounter Details +--------+ + + + + | Date | Type | Department | Care Team | Description | +--------+ + + + + | 06/14/ | Telephone | [facility] | Jessa Croft, | DME (CPAP Supplies ) | | 2019 | | [facility] | [facility] | | | | | MEDICAL CL[facility] [address] | | | | | | [address] [facility], | | | | | | [place] [address] | | | | | | [phone] | | | +--------+ + + + [...] this encounter Miscellaneous Notes Telephone Encounter - Jessa Croft CC CMA - 06/14/2019 10:03 AM PSTRecieved DME order from [facility] (renewal of CPAP supplies). Needs Dr Bustillo's signature and faxed back . RAHUL [facility] CMA documented in th is encounter Plan of Treatment Not on filedocumented as of this encounter Visit Diagnoses Not on filedocumented in this encounter"
--- OUTSIDE RECORDS SUMMARY | ~2020-04-23 | XMS | Encounter Summary ---
Demographics + + + | Address | [address] | | | [place] [address] | + + + | Home Phone | | + + + | Preferred Language | Unknown | + + + | Marital Status | | + + + | Rastafari Affiliation | Unknown | + + + | Race | White | + + + | Ethnic Group | Not or | + + + Author + + + | Author | [facility] | | | and [place] | + + + | Organization | [facility] | | | and [...] [place], [place] | | | | | [address] | | + + + + + Care Team Providers + +------+ + | Care Senior Sas Developer Name | Role | Phone | + +------+ + | Vasiliy Bustillo DO | PCP | | + +------+ + Reason for Visit + +--------+ + | Reason | Onset | Comments | | | Date | | + +--------+ + | Lab Results | 07/09/ | | | | 2018 | | + +--------+ + Encounter Details +--------+ + + + + | Date | Type | Department | Care Team | Description | +--------+ + + + + | 07/09/ | Telephone | [facility] | Vasiliy Bustillo | Lab Results | | 2018 | | [facility] | E, DO [address] | | | | | MEDICAL CLIN[address] | [place], [place] | | | | | [address] [place], | [address] | | | | | [place] [address] | [phone] | | | | | [phone] | | | +--------+ + + + [...] Encounter - Ally Otto CC CMA - 07/09/2018 5:36 PM PSTLeft detailed message as listed. RAHUL Fulton CMA elephone Ally Duran CC CMA - 07/09/2018 5:36 PM PST----- Message from Vasiliy Bustillo DO sent at 07/09/2018 15:06 PST ----- Labs look good. doc umented in this encounter Plan of Treatment Not on filedocumented as of this encounter Visit Diagnoses Not on filedocumented in this encounter"
--- OUTSIDE RECORDS SUMMARY | ~2020-04-23 | XMS | Encounter Summary ---
Demographics + + + | Address | [address] | | | [place] [address] | + + + | Home Phone | | + + + | Preferred Language | Unknown | + + + | Marital Status | | + + + | Hindu Affiliation | Unknown | + + + | Race | White | + + + | Ethnic Group | Not or | + + + Author + + + | Author | [facility] | | | and [place] | + + + | Organization | [facility] | | | and [...] [place], [place] | | | | | [address] | | + + + + + Care Team Providers + +------+ + | Care Sales Associate Cashier Name | Role | Phone | + +------+ + | Vasiliy Bustillo DO | PCP | | + +------+ + Encounter Details +--------+ + + + + | Date | Type | Department | Care Team | Description | +--------+ + + + + | 07/11/ | Abstract | [facility] [place] | [facility], | | | 2012 | | GASTROENTEROLOGY | [facility] [place] | | | | | [address] | [address] | | | | | [address] [place], [place] | [place], [place] | | | | | [address] | [address] | | | | | [phone] | | | +--------+ + + + [...]
--- OUTSIDE RECORDS SUMMARY | ~2020-04-23 | XMS | Encounter Summary ---
Demographics + + + | Address | [address] | | | [place] [address] | + + + | Home Phone | | + + + | Preferred Language | Unknown | + + + | Marital Status | | + + + | Buddhist Affiliation | Unknown | + + + | Race | White | + + + | Ethnic Group | Not or | + + + Author + + + | Author | [facility] | | | and [place] | + + + | Organization | [facility] | | | [...] [place], [place] | | | | | [address] | | + + + + + Care Team Providers + +------+ + | Care Transfill Technician Name | Role | Phone | + +------+ + | Vasiliy Bustillo DO | PCP | | + +------+ + Reason for Visit +---------+--------+ + | Reason | Onset | Comments | | | Date | | +---------+--------+ + | Results | 09/11/ | | | | 2020 | | +---------+--------+ + Encounter Details +--------+ + + + + | Date | Type | Department | Care Team | Description | +--------+ + + + + | 09/11/ | Telephone | [facility] | Derik Pardo MD | Results | | 2019 | | GASTROENTEROLOGY | [address], [place] | | | | | [address] [place] | [address] [place], [place] | | | | | [address] [place], [place] | [address] | | | | | [address] | | | | | | [phone] | | | +--------+ + + + [...] this encounter Miscellaneous Notes Telephone Encounter - Kari Lawrence RN - 09/11/2019 2:48 PM PSTNotified patient th at H Pylori biopsy from stomach was negative. Mid and distal esophageal biopsies negative. Patient states she is swallowing better since the dilatation. She states she was "sore" in her lower esophagus for a couple of days. She continues on the Nexium but will trial Pepc id to see if it works as well. elephone Encounter - Yariel Marques - 09/11/2019 2:23 PM PSTPatient returni gordo Conley RN call in regards to results. Routing to clinical staff Patient phone number: [phone] signed by Yariel Marques at 09/11/2019 2 :29 PM PSTTelephone Encounter - Kari Lawrence RN - 09/11/2019 2:03 PM PSTLeft messa ge asking patient to call for results. Esophageal biopsies negative. H. pylori biopsy nega tive. documented i n this encounter Plan of Treatment Not on filedocumented as of this encounter Procedures + +--------+ + + + | Procedure Name | Priori | Date/Time | Associated Diagnosis | Comments | | | ty | | | | + +--------+ + + + | THYROID STIMULATING | Routin | 09/12/2019 | | Results for this | | HORMONE 3RD GEN | e | 11:48 AM | | procedure are in the | | | | PST | | results section. | + +--------+ + + + | CULTURE, URINE, | Routin | 09/12/2019 | | Results for this | | REFLEXIVE (NON ORD) | e | 11:48 AM | | procedure are in the | | | | PST | | results section. | + +--------+ + + + | URINALYSIS WITH | Routin | 09/12/2019 | | Results for this | | MICROSCOPIC WITH | e | 11:48 AM | | procedure are in the | | CULTURE IF INDICATED | | PST | | results section. | + +--------+ + + + | CBC WITH | Routin | 09/12/2019 | | Results for this | | DIFFERENTIAL | e | 11:48 AM | | procedure are in the | | | | PST | | results section. | + +--------+ + + + | CULTURE, URINE | Routin | 09/12/2019 | | Results for this | | | e | 11:48 AM | | procedure are in the | | | | PST | | results section. | + +--------+ + + + documented in this encounter Results Culture, Urine (09/12/2019 11:48 AM PST) + + + + + + | Component | Value | Ref Range | Performed | Pathologist | | | | | At | Signature | + + + + + + | CULTURE | SEE NOTEComment: URINE | | REFERENCE | | | [place] | CULTURE 09/13/2019 | | LAB | | | URINE | 01:39 PM Specimen has | | [facility] - | | | | been received and plated | | [facility] | | | | by Microbiology Lab. | | | | | | 09/14/2019 12:00 PM | | | | | | 30,000 CFU/mL mixed | | | | | | growth. Bacteria | | | | | | isolated probably | | | | | | represent contaminating | | | | | | lucille. Testing | | | | | | Performed at: IP | | | | | | [facility] [address]; [place], | | | | | | [place] [address] Phone: | | | | | | | | | | + + + + + + + + | Specimen | + + | | + + + + + + + | Performing | Address | City/State/Zipcode | Phone Number | | Organization | | | | + + + + + | REFERENCE LAB | [address] [facility] | [place] | [phone] | | [place] | | [address] | | + + + + + Culture, Urine, Reflexive (09/12/2019 11:48 AM PST) + + + + +------- -------+ | Component | Value | Ref Range | Performed | Pathol ogist | | | | | At | Signat ure | + + + + +------- -------+ | CULTURE | TO FOLLOWComment: Urine | | REFERENCE | | | [place] | Culture to follow on a | | LAB | | | URINE | separate report | | [facility] - | | | |Urine Culture to follow on a separate report | | [facility] | | | | | | | | + + + + +------- -------+ + + | Specimen | + + | | + + + + + | Narrative | Performed At | + + + | Testing Performed at: [facility] CLIA: [id number] - [address] | REFERENCE LAB | | [place] [address] | [facility] - | | | [place] | + + + + + + + + | Performing | Address | City/State/Zipcode | Phone Number | | Organization | | | | + + + + + | REFERENCE LAB | [address] | [place] | [phone] | | [place] | | [address] | | + + + + + Thyroid Stimulating Hormone 3rd Gen (09/12/2019 11:48 AM PST) + + + + + + | Component | Value | Ref Range | Performed | Pathologist | | | | | At | Signature | + + + + + + | TSH | 1.46Comment: Biotin in | 0.270 - 4.20 | [...] Testing Performed at: [facility] CLIA: [id number] - [address] | REFERENCE LAB | | [place] [address] | [facility] - | | | [place] | + + + + + + + + | Performing | Address | City/State/Zipcode | Phone Number | | Organization | | | | + + + + + | REFERENCE LAB | [address] | [place] | [phone] | | [facility] | | [address] | | + + + + + CBC with Differential (09/12/2019 11:48 AM PST) + +-------+ + + + | Component | Value | Ref Range | Performed | Pathologist | | | | | At | Signature | + +-------+ + + + | WBC | 6.8 | 4.5 - 11.0 | REFERENCE | | | | | | LAB | | | | | | [facility] - | | | | | | [facility] | | + +-------+ + + + | Red Blood | 4.76 | 3.8 - 5.1 | REFERENCE | | | Cells | | | LAB | | | | | | [facility] - | | | | | | [facility]KR | | + +-------+ + + + | Hemoglobin | 13.8 | 12.0 - 16.0 | REFERENCE | | | | | | LAB | | | | | | [facility] - | | | | | | [facility]KR | | + +-------+ + + + | Hct | 41.3 | 35 - 45 | REFERENCE | | | | | | LAB | | | | | | [facility] - | | | | | | [facility]KR | | + +-------+ + + + | MCV | 86.8 | 81 - 99 | REFERENCE | | | | | | LAB | | | | | | [facility] - | | | | | | [facility]KR | | + +-------+ + + + | RDW | 13.4 | 10.5 - 15.0 | REFERENCE | | | | | | LAB | | | | | | [facility] - | | | | | | BKR | | + +-------+ + + + | MCH | 29 | 27 - 33 | REFERENCE | | | | | | LAB | | | | | | [facility] - | | | | | | [facility]KR | | + +-------+ + + + | MCHC | 33 | 30 - 36 | REFERENCE | | | | | | LAB | | | | | | [facility] - | | | | | | [facility]KR | | + +-------+ + + + | Platelet | 209 | 140 - 440 | REFERENCE | | | Count | | | LAB | | | | | | [facility] - | | | | | | [facility]KR | | + +-------+ + + + | % | 57.0 | 39 - 80 | REFERENCE | | | Neutrophils | | | LAB | | | | | | [facility] - | | | | | | BKR | | + +-------+ + + + | % | 35.1 | 24 - 44 | REFERENCE | | | Lymphocytes | | | LAB | | | | | | [facility] - | | | | | | BKR | | + +-------+ + + + | Monocyte % | 6.6 | 0 - 12 | REFERENCE | | | | | | LAB | | | | | | [facility] - | | | | | | [facility]KR | | + +-------+ + + + | Eosinophils | 0.8 | 0 - 6 | REFERENCE | | | % | | | LAB | | | | | | [facility] - | | | | | | BKR | | + +-------+ + + + | Basophils % | 0.5 | 0 - 2 | REFERENCE | | | | | | LAB | | | | | | [facility] - | | | | | | BKR | | + +-------+ + + + + + | Specimen | + + | | + + + + + | Narrative | Performed At | + + + | Testing Performed at: [facility] CLIA: [id number] - 6630 | REFERENCE LAB | | [place] [address] | [facility] - | | | BKR | + + + + + + + + | Performing | Address | City/State/Zipcode | Phone Number | | Organization | | | | + + + + + | REFERENCE LAB | [address] | [place] | [phone] | | [facility] | | [address] | | + + + + + Urinalysis with Microscopic with Culture if Indicated (09/12/2019 11:48 AM PST) + + + + + + | Component | Value | Ref Range | Performed | Pathologist | | | | | At | Signature | + + + + + + | Collection | CLEAN CATCH | | REFERENCE | | | | | | LAB | | | | | | [facility] - | | | | | | [facility]KR | | + + + + + + | Color, UA | YELLOW | | REFERENCE | | | | | | LAB | | | | | | [facility] - | | | | | | [facility]KR | | + + + + + + | Clarity, | CLEAR | | REFERENCE | | | Urine | | | LAB | | | | | | [facility] - | | | | | | [facility]KR | | + + + + + + | Specific | 1.013 | 1.005 - 1.030 | REFERENCE | | | [place] | | | LAB | | | | | | [facility] - | | | | | | [facility]KR | | + + + + + + | pH, Urine | 6 | 5 - 9 | REFERENCE | | | | | | LAB | | | | | | [facility] - | | | | | | [facility]KR | | + + + + + + | Protein, UA | NEGATIVE | negative | REFERENCE | | | | | | LAB | | | | | | [facility] - | | | | | | [facility]KR | | + + + + + + | Glucose, UA | NORMAL | normal | REFERENCE | | | | | | LAB | | | | | | [facility] - | | | | | | BKR | | + + + + + + | Ketones, UA | NEGATIVE | negative | REFERENCE | | | | | | LAB | | | | | | [facility] - | | | | | | BKR | | + + + + + + | Bilirubin, | NEGATIVE | negative | REFERENCE | | | UA | | | LAB | | | | | | [facility] - | | | | | | BKR | | + + + + + + | Blood, UA | NEGATIVE | negative | REFERENCE | | | | | | LAB | | | | | | [facility] - | | | | | | BKR | | + + + + + + | Nitrite, UA | NEGATIVE | negative | REFERENCE | | | | | | LAB | | | | | | [facility] - | | | | | | BKR | | + + + + + + | Urobilinoge | NORMAL | normal | REFERENCE | | | n, Ur | | | LAB | | | | | | [facility] - | | | | | | BKR | | + + + + + + | Leukocyte | NEGATIVE | negative | REFERENCE | | | esterase, | | | LAB | | | UA | | | [facility] - | | | | | | BKR | | + + + + + + | Other Casts | NEGATIVE | 0-1+ Hyaline | REFERENCE | | | | | | LAB | | | | | | [facility] - | | | | | | BKR | | + + + + + + | WBC, UA | 2 | 0 - 4 | REFERENCE | | | | | | LAB | | | | | | [facility] - | | | | | | BKR | | + + + + + + | RBC, UA | 2 | 0 - 4 | REFERENCE | | | | | | LAB | | | | | | [facility] - | | | | | | [facility]KR | | + + + + + + | Squamous | SQUAMOUS 3+ | 0-1+ Squamous | REFERENCE | | | epithelial, | | | LAB | | | UA | | | [facility] - | | | | | | BKR | | + + + + + + | CRYSTAL UA | NEGATIVE | 0-1+ | REFERENCE | | | | | | LAB | | | | | | [facility] - | | | | | | BKR | | + + + + + + | Bacteria, | 2+Comment: A urine | negative | REFERENCE | | | UA | culture is indicated (10 | | LAB | | | | or greater WBCs and/or | | [facility] - | | | | >1+ bacteria). However, | | [facility] | | | | the urinalysis | [...] Testing Performed at: [facility] CLIA: [id number] - 9013 | REFERENCE LAB | | [place] [address] | [facility] - | | | [place] | + + + + + + + + | Performing | Address | City/State/Zipcode | Phone Number | | Organization | | | | + + + + + | REFERENCE LAB | [address] [facility] | [place] | [phone] | | [facility] | | [address] | | + + + + + documented in this encounter Visit Diagnoses Not on filedocumented in this encounter
--- OUTSIDE RECORDS SUMMARY | ~2020-04-23 | XMS | Encounter Summary ---
Demographics + + + | Address | [address] | | | [place] [address] | + + + | Home Phone | | + + + | Preferred Language | Unknown | + + + | Marital Status | | + + + | Buddhist Affiliation | Unknown | + + + | Race | White | + + + | Ethnic Group | Not or | + + + Author + + + | Author | [facility] | | | and [place] | + + + | Organization | [facility] | | | and [...] [place], [place] | | | | | [address] | | + + + + + Care Team Providers + +------+ + | Care Retail Client Solutions Consultant Name | Role | Phone | + +------+ + | Vasiliy Bustillo DO | PCP | | + +------+ + Reason for Visit + +--------+ + | Reason | Onset | Comments | | | Date | | + +--------+ + | Records Request | 07/03/ | | | | 2019 | | + +--------+ + Encounter Details +--------+ + + + + | Date | Type | Department | Care Team | Description | +--------+ + + + + | 07/03/ | Telephone | [facility] | Jessa Croft, | Records Request | | 2019 | | [facility] | [facility] | | | | | [facility] [address] | | | | | | [address] [facility], | | | | | | [place] [address] | | | | | | [phone] | | | +--------+ + + + [...] this encounter Miscellaneous Notes Telephone Encounter - Con Cotton - 07/03/2019 12:49 PM PSTROI faxed ti the [facility]/[place] signed by Con Cotton at 07/03/2019 12:50 PM PSTTelephone Enc angie - Jessa Croft [facility] - 07/03/2019 11:54 AM PSTCan you please obtain record of r ecent mammogram and PAP from [facility]? Thanks, Jessa documente d in this encounter Plan of Treatment Not on filedocumented as of this encounter Visit Diagnoses Not on filedocumented in this encounter"
--- OUTSIDE RECORDS SUMMARY | ~2020-04-23 | XMS | Encounter Summary ---
Demographics + + + | Address | [address] | | | [place] [address] | + + + | Home Phone | | + + + | Preferred Language | Unknown | + + + | Marital Status | | + + + | Yazidi Affiliation | Unknown | + + + | Race | White | + + + | Ethnic Group | Not or | + + + Author + + + | Author | [facility] | | | and [place] | + + + | Organization | [facility] | | | and [...] [place], [place] | | | | | [address] | | + + + + + Care Team Providers + +------+ + | Care Sports Book Writer Name | Role | Phone | + +------+ + | Vasiliy Bustillo DO | PCP | | + +------+ + Reason for Visit + +--------+ + | Reason | Onset | Comments | | | Date | | + +--------+ + | Dysphagia | 06/25/ | | | | 2012 | | + +--------+ + Encounter Details +--------+ + + + + | Date | Type | Department | Care Team | Description | +--------+ + + + + | 06/25/ | Telephone | [facility] [place] | [place], | Dysphagia | | 2012 | | GASTROENTEROLOGY | [address] | | | | | [address] | [address] | | | | | [address] [place], [place] | [place], [place] | | | | | [address] | [address] | | | | | [phone] | | | +--------+ + + + [...] this encounter Miscellaneous Notes Telephone Encounter - Beatrice Ashby RN - 06/25/2013 12:02 PM PSTCalled patient she had sen t an email saying that she was having trouble swallowing, called patient back she states fee ls sore, maybe feels like at times things get stuck, advised she did have a dilation and a f ew Biopsies sites may be irritated advised liquids and soft foods, advised to take time eat ing, chewing well, cutting up food, fluids after eating, she verbalized understanding advise d if worsening in the next few days to let us know she verbalized understanding.Electronical ly signed by Beatrice Ashby RN at 06/25/2013 12:05 PM PSTdocumented in this encounter Plan of Treatment Not on filedocumented as of this encounter Visit Diagnoses Not on filedocumented in this encounter"
--- OUTSIDE RECORDS SUMMARY | ~2020-04-23 | XMS | Encounter Summary ---
Demographics + + + | Address | [address] | | | [place] [address] | + + + | Home Phone | | + + + | Preferred Language | Unknown | + + + | Marital Status | | + + + | Restoration Affiliation | Unknown | + + + | Race | White | + + + | Ethnic Group | Not or | + + + Author + + + | Author | [facility] | | | and [place] | + + + | Organization | [facility] | | | [...] [place], [place] | | | | | [address] | | + + + + + Care Team Providers + +------+ + | Care Fishing Captain Name | Role | Phone | + +------+ + | Vasiliy Bustillo DO | PCP | | + +------+ + Reason for Visit + +--------+ + | Reason | Onset | Comments | | | Date | | + +--------+ + | Appointment Question | 06/20/ | | | | 2018 | | + +--------+ + Encounter Details +--------+ + + + + | Date | Type | Department | Care Team | Description | +--------+ + + + + | 06/20/ | Telephone | [facility] | Vasiliy Bustillo | Appointment Question | | 2018 | | [facility] | E, DO [address] | | | | | MEDICAL CL[facility] [address] | [place], [place] | | | | [address] [place], | [address] | | | | | [place] [address] | [phone] | | | | | [phone] | | | +--------+ + + + [...] Notes Telephone Encounter - Ally Otto CC ORIGINATION SPECIALIST - 06/21/2018 8:56 AM PSTPatient informed. RAHUL Weber CMA elephone Encounmelvin Otto Ally RAHUL Toledo CMA - 06/21/2018 8:56 AM PSTFormatting of this note might be differe nt from the original. Appointment Question Vasiliy Bustillo, DO You 1 hour ago (7:49) This is medically stationary so no need for follow up unless symptoms return. (Routing com [facility]) elephone Tonia Patel FNP - 06/20/2018 3:[address]ustillo Electronically sign ed by KIM Carter at 06/20/2018 3:18 PM PSTTelephone Encounter - Diana Yang C C CMA - 06/20/2018 2:49 PM PSTWait for Keny? RAHUL Reed CMA elephone Salma Son - 06/20/2018 2:35 PM PSTPt states SAIF is needing to know if pt is going to be scheduled for any future L knee WC fu appointments. Please call pt. Rodney AroraElectronkailee signed by Salma Steven at 06/20/2018 2:45 PM PSTdocument ed in this encounter Plan of Treatment Not on filedocumented as of this encounter Procedures + +--------+ + + + | Procedure Name | Priori | Date/Time | Associated Diagnosis | Comments | | | ty | | | | + +--------+ + + + | THYROID STIMULATING | Routin | 07/09/2018 | | Results for this | | HORMONE 3RD GEN | e | 7:13 AM | | procedure are in the | | | | PST | | results section. | + +--------+ + + + | URINALYSIS WITH | Routin | 07/09/2018 | | Results for this | | MICROSCOPIC WITH | e | 7:13 AM | | procedure are in the | | CULTURE IF INDICATED | | PST | | results section. | + +--------+ + + + | LIPID PANEL | Routin | 07/09/2018 | | Results for this | | | e | 7:13 AM | | procedure are in the | | | | PST | | results section. | + +--------+ + + + | CBC WITH | Routin | 07/09/2018 | | Results for this | | DIFFERENTIAL | e | 7:13 AM | | procedure are in the | | | | PST | | results section. | + +--------+ + + + | HEMOGLOBIN A1C | Routin | 07/09/2018 | | Results for this | | | e | 7:13 AM | | procedure are in the | | | | PST | | results section. | + +--------+ + + + | COMPREHENSIVE | Routin | 07/09/2018 | | Results for this | | METABOLIC PANEL | e | 7:13 AM | | procedure are in the | | | | PST | | results section. | + +--------+ + + + documented in this encounter Results Thyroid Stimulating Hormone 3rd Gen (07/09/2018 7:13 AM PST) + + + + + + | Component | Value | Ref Range | Performed | Pathologist | | | | | At | Signature | + + + + + + | TSH | 1.89Comment: Biotin in | 0.270 - 4.20 | REFERENCE | | | | specimens taken from | | LAB | | | | patients on high-dose | | [facility] | | | | biotin therapy or | | | | | | supplements may intefere [...] Testing Performed at: [facility] [facility] CLIA: [id number] - [address] | REFERENCE LAB | | [place] [address] | [facility] | + + + + + + + + | Performing | Address | City/State/Zipcode | Phone Number | | Organization | | | | + + + + + | REFERENCE LAB | [address] | [place] | [phone] | | [place] | | [address] | | + + + + + | REFERENCE LAB | [address] | [place] | [phone] | | [facility] | | [address] | | + + + + + Comprehensive Metabolic Panel (07/09/2018 7:13 AM PST) + + + + + + | Component | Value | Ref Range | Performed | Pathologist | | | | | At | Signature | + + + + + + | Sodium | 139 | 132 - 143 | REFERENCE | | | | | | LAB | | | | | | [facility] | | + + + + + + | Potassium | 3.7 | 3.6 - 5.1 | REFERENCE | | | | | | LAB | | | | | | [facility] | | + + + + + + | Chloride | 99 | 95 - 112 | REFERENCE | | | | | | LAB | | | | | | [facility] | | + + + + + + | Carbon | 24 | 19 - 31 | REFERENCE | | | dioxide | | | LAB | | | | | | [facility] | | + + + + + + | Anion Gap | 19.7 | 7 - 21 | REFERENCE | | | | | | LAB | | | | | | [facility] | | + + + + + + | Glucose | 107 (H) | 70 - 100 | REFERENCE | | | | | | LAB | | | | | | [facility] | | + + + + + + | BUN | 15 | 6 - 23 | REFERENCE | | | | | | LAB | | | | | | [facility] | | + + + + + + | Creatinine | 0.63 (L) | 0.70 - 1.33 | REFERENCE | | | | | | LAB | | | | | | [facility] | | + + + + + + | GFR | 98 | | REFERENCE | | | ESTIMATE | | | LAB | | | (REF) | | | [facility] | | + + + + + + | BUN/Creatin | 23.8 | 6.0 - 28.6 | REFERENCE | | | ine Ratio | | | LAB | | | | | | [facility] | | + + + + + + | Calcium | 9.3 | 8.5 - 10.3 | REFERENCE | | | | | | LAB | | | | | | [facility] | | + + + + + + | AST (SGOT) | 23 | 13 - 39 | REFERENCE | | | (REF) | | | LAB | | | | | | [facility] | | + + + + + + | ALT (SGPT) | 32 | 7 - 52 | REFERENCE | | | (REF) | | | LAB | | | | | | [facility] | | + + + + + + | ALK PHOS | 109 | 31 - 130 | REFERENCE | | | | | | LAB | | | | | | [facility] | | + + + + + + | BILIRUBIN, | 0.5 | 0.0 - 1.2 | REFERENCE | | | TOTAL | | | LAB | | | | | | [facility] | | + + + + + + | Protein, | 6.7 | 6.0 - 8.3 | REFERENCE | | | Total | | | LAB | | | | | | [facility] | | + + + + + + | Albumin | 4.1 | 3.5 - 5.0 | REFERENCE | | | | | | LAB | | | | | | [facility] | | + + + + + + | Globulin | 2.6 | 1.8 - 3.5 | REFERENCE | | | | | | LAB | | | | | | [facility] | | + + + + + + | A/G Ratio | 1.6Comment: | 1.1 - 2.4 | REFERENCE | | | | ESTIMATED GFR Reference | | LAB | | | | Range:GFR = Less than | | [facility] | | | | 60: Chronic Kidney | | | | | | Disease, if found over a | | | | | | 3 month period.GFR = | | | | | | Less than 15: Kidney | | | | | | Failure.For | | | | | | Americans, multiply the | | | | | | calculated GFR by | | | | | | 1.21.GFR calculation is | | | | | | not valid for patients | | | | | | under age 18 years.For | | | | | | patients over age 70 | | | | | | please interpret results | | | | | | with caution as results | | | | | | have not been validated | | | | | | for this calculation | | | | | | method Please Note:Total | | | | | | Protein Reference range | | | | | | change as of | | | | | | 12/25/2017.Please Note: | | | | | | Calcium reference range | | | | | | change as of 02/22/2018. | | | | + + + + + + + + | Specimen | + + | | + + + + + | Narrative | Performed At | + + + | Testing Performed at: [facility] CLIA: [id number] - [address] | REFERENCE LAB | | [place] [address] | [facility] | + + + + + + + + | Performing | Address | City/State/Zipcode | Phone Number | | Organization | | | | + + + + + | REFERENCE LAB | [address] | [place] | [phone] | | [facility] | | [address] | | + + + + + | REFERENCE LAB | [address] | [place] | [phone] | | [facility] | | [address] | | + + + + + Lipid Panel (07/09/2018 7:13 AM PST) + +---------+ + + + | Component | Value | Ref Range | Performed | Pathologist | | | | | At | Signature | + +---------+ + + + | Cholesterol | 215 (H) | OPT: <200 | REFERENCE | | | | | | LAB | | | | | | [facility] | | + +---------+ + + + | Triglycerid | 147 | 30 - 150 | REFERENCE | | | es | | | LAB | | | | | | [facility] | | + +---------+ + + + | HDL | 46.1 | OPT: >40 | REFERENCE | | | Cholesterol | | | LAB | | | | | | [facility] | | + +---------+ + + + | LDL | 140 (H) | OPT: <100 | REFERENCE | | | Cholesterol | | | LAB | | | | | | [facility] | | + +---------+ + + + | Cholesterol | 29 | 4 - 40 | REFERENCE | | | in VLDL | | | LAB | | | | | | [facility] | | + +---------+ + + + | Chol/HDL | 4.7 | OPT: <4.44 | REFERENCE | | | Ratio | | | LAB | | | | | | [facility] | | + +---------+ + + + | Non-HDL | 169 (H) | OPT: <130 | REFERENCE | | | Cholesterol | | | LAB | | | | | | [facility] | | + +---------+ + + + + + | Specimen | + + | | + + + + + | Narrative | Performed At | + + + | Testing Performed at: [facility] CLIA: [id number] - [address] | REFERENCE LAB | | [place] [address] | [facility] | + + + + + + + + | Performing | Address | City/State/Zipcode | Phone Number | | Organization | | | | + + + + + | REFERENCE LAB | [address] | [place] | [phone] | | [facility] | | [address] | | + + + + + | REFERENCE LAB | [address] | [place] | [phone] | | [facility] | | [address] | | + + + + + Urinalysis with Microscopic with Culture if Indicated (07/09/2018 7:13 AM PST) + + + + + [...] + + + + | Clarity, | SLIGHTLYCLOUDY | | REFERENCE | | | Urine | | | LAB | | | | | | [facility] | | + + + + + + | Specific | 1.018 | 1.005 - 1.030 | REFERENCE | | | [place] | | | LAB | | | [...] + + + | Testing Performed at: [facility] CLIA: [id number] - [address] | REFERENCE LAB | | [place] [address] | [facility] | + + + + + + + + | Performing | Address | City/State/Zipcode | Phone Number | | Organization | | | | + + + + + | REFERENCE LAB | [address] | [place] | [phone] | | [facility] | | [address] | | + + + + + | REFERENCE LAB | [address] | [place] | [phone] | | [facility] | | [address] | | + + + + + Hemoglobin A1C (07/09/2018 7:13 AM PST) + + + + + + | Component | Value | Ref Range | Performed | Pathologist | | | | | At | Signature | + + + + + + | Hemoglobin | 5.5 | | REFERENCE | | | A1c | | | LAB | | | | | | [facility] | | + + + + + + | Estimated | 111Comment: | | REFERENCE | | | Average | Reference Range for | | LAB | | | Glucose | HEMOGLOBIN A1c: | | [facility] | | | | Non-Diabetic | | | | | | <5.7% | | | | | | Increased Risk for | | | | | | Diabetes 5.7% - 6.4% | | | | | | Diagnostic for | | | | | | Diabetes >6.4 | | | | | | Diabetic Goal | | | | | | <7.0%These | | | | | | values are for | | | | | | non- individuals | | | | | | according to the | | | | | | [place] [employer] | | | | | | Association. 'Diabetes | | | | | | Care. | | | | | | 2009;33(suppl):S15-S61.' | | | | | | Hb A1C results may be | | | | | | falsely decreased in the | | | | | | presence of conditions | | | | | | that shorten red cell | | | | | | survival such as the | | | | | | presence of unstable | | | | | | hemoglobins or hemolytic | | | | | | anemia. Results may be | | | | | | falsely elevated in the | | | | | | presence of Iron | | | | | | deficiency anemia. | | | | + + + + + + + + | Specimen | + + | | + + + + + | Narrative | Performed At | + + + | Testing Performed at: [facility] CLIA: [id number] - [address] | REFERENCE LAB | | [place] [address] | [facility] | + + + + + + + + | Performing | Address | City/State/Zipcode | Phone Number | | Organization | | | | + + + + + | REFERENCE LAB | [address] [facility] | [place], [place] | [phone] | | [facility] | | [address] | | + + + + + | REFERENCE LAB | [address] [facility] | [place], [place] | [phone] | | [facility] | | [address] | | + + + + + CBC with Differential (07/09/2018 7:13 AM PST) + +-------+ + + + | Component | Value | Ref Range | Performed | Pathologist | | | | | At | Signature | + +-------+ + + + | WBC | 7.5 | 4.5 - 11.0 | REFERENCE | | | | | | LAB | | | | | | [facility] | | + +-------+ + + + | Red Blood | 4.74 | 3.8 - 5.1 | REFERENCE | | | Cells | | | LAB | | | | | | [facility] | | + +-------+ + + + | Hemoglobin | 13.9 | 12.0 - 16.0 | REFERENCE | | | | | | LAB | | | | | | [facility] | | + +-------+ + + + | Hct | 40.8 | 35 - 45 | REFERENCE | | | | | | LAB | | | | | | [facility] | | + +-------+ + + + | MCV | 86.0 | 81 - 99 | REFERENCE | | | | | | LAB | | | | | | [facility] | | + +-------+ + + + | RDW | 14.2 | 10.5 - 15.0 | REFERENCE | [...] +-------+ + + + | Platelet | 205 | 140 - 440 | REFERENCE | | | Count | | | LAB | | | | | | [facility] | | + +-------+ + + + | % | 63.9 | 39 - 80 | REFERENCE | | | Neutrophils | | | LAB | | | | | | [facility] | | + +-------+ + + + | % | 28.8 | 24 - 44 | REFERENCE | | | Lymphocytes | | | LAB | | | | | | [facility] | | + +-------+ + + + | Monocyte % | 5.5 | 0 - 12 | REFERENCE | | | | | | LAB | | | | | | [facility] | | + +-------+ + + + | Eosinophils | 1.1 | 0 - 6 | REFERENCE | | | % | | | LAB | | | | | | [facility] | | + +-------+ + + + | Basophils % | 0.7 | 0 - 2 | REFERENCE | | | | | | LAB | | | | | | [facility] | | + +-------+ + + + + + | Specimen | + + | | + + + + + | Narrative | Performed At | + + + | Testing Performed at: [facility] TERESAIA: [id number] - [address] | REFERENCE LAB | | [place] [address] | [facility] | + + + + + + + + | Performing | Address | City/State/Zipcode | Phone Number | | Organization | | | | + + + + + | REFERENCE LAB | [address] [place] | [place] | [phone] | | [facility] | | [address] | | + + + + + | REFERENCE LAB | [address] | [place] | [phone] | | [place] | | [address] | | + + + + + documented in this encounter Visit Diagnoses Not on filedocumented in this encounter"
--- OUTSIDE RECORDS SUMMARY | ~2020-04-23 | XMS | Encounter Summary ---
Demographics + + + | Address | [address] | | | [place] [address] | + + + | Home Phone | | + + + | Preferred Language | Unknown | + + + | Marital Status | | + + + | Spiritism Affiliation | Unknown | + + + | Race | White | + + + | Ethnic Group | Not or | + + + Author + + + | Author | [facility] | | | and [place] | + + + | Organization | [facility] | | [...] [place], [place] | | | | | [address] | | + + + + + Care Team Providers + +------+ + | Care Transition Teacher Name | Role | Phone | + +------+ + | Vasiliy Bustillo DO | PCP | | + +------+ + Reason for Visit + +--------+ + | Reason | Onset | Comments | | | Date | | + +--------+ + | Medication Refill | 06/14/ | | | | 2018 | | + +--------+ + | Medication Refill | 07/02/ | | | | 2018 | | + +--------+ + Encounter Details +--------+--------+ + + + | Date | Type | Department | Care Team | Description | +--------+--------+ + + + | 06/14/ | Refill | [facility] | Vasiliy Bustillo | Medication Refill; | | 2018 | | [facility] | E, DO [address] | Medication Refill | | | | MEDICAL CLINIC [address] | [place], [place] | | | | | [address] [place], | [address] | | | | | [place] [address] | [phone] | | | | | [phone] | | | +--------+--------+ + + + [...] this encounter Miscellaneous Notes Telephone Encounter - Cara Forrest - 07/02/2019 3:38 PM PSTThese were taken care of 06/14/19. Cara elephone Encounter - Ally Otto CC CMA - 06/14/2019 2:55 PM PSTLAST OFFICE VISIT 06/01/2018, labs up to howie e. RAHUL Fulton CMA elephone Encounte r - Cara Forrest - 06/14/2019 2:23 PM PSTPt requesting refill of: FLUoxetine (PROZAC) 20 mg capsule omeprazole (PRILOSEC) 20 mg capsule triamterene-hydrochlorothiazide (DYAZIDE) 37.5-25 MG per capsule -[facility] in [place] [facility], this is wrong. Please fix. Thanks, Cara documented in this enc ounter Plan of Treatment Not on filedocumented as of this encounter Visit Diagnoses + + | Diagnosis | + + | Other depression | + + | Essential hypertension Unspecified essential hypertension | + + documented in this encounter"
--- OUTSIDE RECORDS SUMMARY | ~2020-04-23 | XMS | Encounter Summary ---
Demographics + + + | Address | [address] | | | [place] [address] | + + + | Home Phone | | + + + | Preferred Language | Unknown | + + + | Marital Status | | + + + | Restorationism Affiliation | Unknown | + + + | Race | White | + + + | Ethnic Group | Not or | + + + Author + + + | Author | [facility] | | | and [place] | + + + | Organization | [facility] | | | and [...] [place], [place] | | | | | [address] | | + + + + + Care Team Providers + +------+ + | Care Sheltered Workshop Executive Director Name | Role | Phone | + +------+ + | Vasiliy Bustillo DO | PCP | | + +------+ + Reason for Visit +---------+--------+ + | Reason | Onset | Comments | | | Date | | +---------+--------+ + | Results | 09/16/ | | | | 2020 | | +---------+--------+ + Encounter Details +--------+ + + + + | Date | Type | Department | Care Team | Description | +--------+ + + + + | 09/16/ | Telephone | [facility] | Vasiliy Bustillo | Results | | 2020 | | [facility] | E, DO [address] | | | | | MEDICAL CLINIC [address] | [place], [place] | | | | | [address] [place], | [address] | | | | | [place] [address] | [phone] | | | | | [phone] | | | +--------+ + + + [...] Notes Telephone Encounter - Jessa Croft CC JAVASCRIPT FRONT END DEVELOPER - 09/16/2019 7:37 AM PST----- Message from Vasiliy Bustillo DO sent at 09/16/2019 7:10 AM PST ----- Labs OK documente d in this encounter Plan of Treatment Not on filedocumented as of this encounter Visit Diagnoses Not on filedocumented in this encounter"
--- OUTSIDE RECORDS SUMMARY | ~2020-04-23 | XMS | Encounter Summary ---
Demographics + + + | Address | [address] | | | [place] [address] | + + + | Home Phone | | + + + | Preferred Language | Unknown | + + + | Marital Status | | + + + | Gnosticist Affiliation | Unknown | + + + [...] [address] | | | | | [place], [place] | | | | | [address] | | + + + + + Care Team Providers + +------+ + | Care Bi Application Developer Name | Role | Phone | + +------+ + | Vasiliy Bustillo DO | PCP | | + +------+ + Reason for Visit + +--------+ + | Reason | Onset | Comments | | | Date | | + +--------+ + | Medication Prior | 11/18/ | Nexium | | Authorization | 2019 | | + +--------+ + Encounter Details +--------+ + + + + | Date | Type | Department | Care Team | Description | +--------+ + + + + | 11/18/ | Telephone | [facility] | Mary Grace Dodson, | Medication Prior | | 2020 | | [facility] | RN CDCES | Authorization | | | | MEDICAL CLINIC [address] | | (Nexium ) | | | | [address] [facility], | | | | | | [place] [address] | | | | | | [phone] | | | +--------+ + + + [...] this encounter Miscellaneous Notes Telephone Encounter - Mary Grace Dodson RN - 11/22/2019 4:16 PM PDTAttempted to reach damaris ent regarding denial of Nexium. Per Dr. Bustillo, patient is able to try any OTC medication for GERD. Message left for patient. She is to f/u with Dr. Bustillo as directed or if she h as any further questions. Daysi ARTEAGA, GALL[place] elephone Encounter - Vasiliy Bustillo DO - 11/22/2019 4:02 PM PDTAny OTC she can choose. elephone Encounte r - Mary Grace Dodson RN - 11/22/2019 3:51 PM PDTDarla Svetlana Chiang: [id number] Rx #: [id number] Need help? Call us at Outcome: Denied today DrugEsomeprazole Magnesium 20MG dr capsules [employer] and [employer] Form Original Claim [id number] [place] [employer] Contacted [facility] plan and hardware supplies sales representative stated that no proton pump inhibitors are included on this patient's drug plan. Recommended over the counter medication. Provider notified. Daysi ARTEAGA, [facility] elephone Encounter - Mary Grace Dodson RN - 11/19/2019 3:57 PM PDTDaranoop Mota Chiang: [id number] Rx #: [id number] Need help? Call us at Status Sent to [facility] DrugEsomeprazole Magnesium 20MG dr capsules [employer] and [employer] PA Form Original Claim [id number] [place] [employer] Daysi ARTEAGA, [facility] documented in this e ncounter Plan of Treatment Not on filedocumented as of this encounter Visit Diagnoses Not on filedocumented in this encounter"
--- OUTSIDE RECORDS SUMMARY | ~2020-04-23 | XMS | Encounter Summary ---
Demographics + + + | Address | [address] | | | [place] [address] | + + + | Home Phone | | + + + | Preferred Language | Unknown | + + + | Marital Status | | + + + | Orthodox Affiliation | Unknown | + + + | Race | White | + + + | Ethnic Group | Not or | + + + Author + + + | Author | [facility] | | | and [place] | + + + | Organization | [facility] | | | [...] [place], [place] | | | | | [address] | | + + + + + Care Team Providers + +------+ + | Care Tonal Regulator Name | Role | Phone | + +------+ + | Vasiliy Bustillo DO | PCP | | + +------+ + Encounter Details +--------+ + + + + | Date | Type | Department | Care Team | Description | +--------+ + + + + | 07/02/ | Abstract | [facility] | Vasiliy Bustillo | | | 2018 | | [facility] | E, DO [address] | | | | | MEDICAL CLINIC [address] | [place], [place] | | | | | [address] [place], | [address] | | | | | [place] [address] | [phone] | | | | | [phone] | | | +--------+ + + + [...] + + documented as of this encounter Progress Pilar Casper - 07/02/2019 7:27 AM PSTCreated erroneously documented in this encounter Plan of Treatment Not on filedocumented as of this encounter Visit Diagnoses Not on filedocumented in this encounter"
--- OUTSIDE RECORDS SUMMARY | ~2020-04-23 | XMS | Encounter Summary ---
Demographics + + + | Address | [address] | | | [place] [address] | + + + | Home Phone | | + + + | Preferred Language | Unknown | + + + | Marital Status | | + + + | Adventist Affiliation | Unknown | + + + | Race | White | + + + | Ethnic Group | Not or | + + + Author + + + | Author | [facility] | | | and [place] | + + + | Organization | [facility] | | [...] [place], [place] | | | | | [address] | | + + + + + Care Team Providers + +------+ + | Care Incendiaries Supervisor Name | Role | Phone | + +------+ + | aVsiliy Bustillo DO | PCP | | + +------+ + Reason for Visit + +--------+ + | Reason | Onset | Comments | | | Date | | + +--------+ + | Results, Pathology | 07/03/ | endoscopy | | | 2012 | | + +--------+ + Encounter Details +--------+ + + + + | Date | Type | Department | Care Team | Description | +--------+ + + + + | 07/03/ | Telephone | [facility] | Derik Pardo MD | Results, Pathology | | 2012 | | GASTROENTEROLOGY | [address] [facility] | (endoscopy) | | | | [address] [facility] | [address] [place], [place] | | | | | [address] [place], [place] | [address] | | | | | [address] | | | | | | [phone] | | | +--------+ + + + [...] Telephone Encounter - Beatrice Ashby RN - 07/03/2013 1:15 PM PSTCalled patient talked with Justin as patient not there, advised that pathology came back negative, if continued i ssues with dysphagia to please let us know, Justin states she has not said anything of dysphagi a at this time but will let her know. documented in this encounter Plan of Treatment Not on filedocumented as of this encounter Visit Diagnoses Not on filedocumented in this encounter"
--- OUTSIDE RECORDS SUMMARY | ~2020-04-23 | XMS | Encounter Summary ---
Demographics + + + | Address | [address] | | | [place] [address] | + + + | Home Phone | | + + + | Preferred Language | Unknown | + + + | Marital Status | | + + + | Episcopal Affiliation | Unknown | + + + | Race | White | + + + | Ethnic Group | Not or | + + + Author + + + | Author | [facility] | | | and [place] | + + + | Organization | [facility] | | | [...] [place], [place] | | | | | [address] | | + + + + + Care Team Providers + +------+ + | Care Rosin Barrel Filler Name | Role | Phone | + +------+ + | Vasiliy Bustillo DO | PCP | | + +------+ + Encounter Details +--------+ + + + + | Date | Type | Department | Care Team | Description | +--------+ + + + + | 06/06/ | Abstract | [facility] [place] | [facility], | | | 2012 | | GASTROENTEROLOGY | [address] | | | | | [address] | [address] | | | | | [address] [place], [place] | [place], [place] | | | | | [address] | [address] | | | | | [phone] | | | +--------+ + + + [...]
--- OUTSIDE RECORDS SUMMARY | ~2020-04-23 | XMS | Encounter Summary ---
Demographics + + + | Address | [address] | | | [place] [address] | + + + | Home Phone | | + + + | Preferred Language | Unknown | + + + | Marital Status | | + + + | Zoroastrian Affiliation | Unknown | + + + [...] [place], [place] | | | | | [address] | | + + + + + Care Team Providers + +------+ + | Care Physician/Allergy/Immunology Name | Role | Phone | + +------+ + | Vsailiy Bustillo DO | PCP | | + +------+ + Reason for Visit + +--------+ + | Reason | Onset | Comments | | | Date | | + +--------+ + | Medication Question | 06/08/ | | | | 2018 | | + +--------+ + Encounter Details +--------+ + + + + | Date | Type | Department | Care Team | Description | +--------+ + + + + | 06/08/ | Telephone | [facility] [facility] | Vasiliy Bustillo | Medication Question | | 2018 | | [facility] | E, DO [address] | | | | | MEDICAL CLIN[facility] [address] | [place], [place] | | | | [address] [place], | [address] | | | | | [place] [address] | [phone] | | | | | [phone] | | | +--------+ + + + [...] Notes Telephone Encounter - Ally Otto CC FACTORY WORKER - 06/08/2018 3:48 PM PDTLAST OFFICE VISIT . RAHUL Fulton CMA eleSalma Mcgill - 06/08/2018 3:04 PM PDTFLUoxetine (PROZAC) 20 mg capsule triamterene-hydrochlorothiazide (DYAZIDE) 37.5-25 MG per capsule Pt is needing Rx's to go to [facility] in [place], Thanks Salma documented in t his encounter Plan of Treatment Not on filedocumented as of this encounter Visit Diagnoses + + | Diagnosis | + + | Essential hypertension Unspecified essential hypertension | + + | Other depression | + + documented in this encounter"
--- OUTSIDE RECORDS SUMMARY | ~2020-04-23 | XMS | Encounter Summary ---
Demographics + + + | Address | [address] | | | [place] [address] | + + + | Home Phone | | + + + | Preferred Language | Unknown | + + + | Marital Status | | + + + | Anglican Affiliation | Unknown | + + + | Race | White | + + + | Ethnic Group | Not or | + + + Author + + + | Author | [facility] | | | and [place] | + + + | Organization | [facility] | | | [...] [place], [place] | | | | | [address] | | + + + + + Care Team Providers + +------+ + | Care Cooperative Extension Agent Name | Role | Phone | + +------+ + | Vasiliy Bustillo DO | PCP | | + +------+ + Encounter Details +--------+ + + + + | Date | Type | Department | Care Team | Description | +--------+ + + + + | 06/11/ | Hospital | [facility] | [facility], | Abdominal pain; | | 2012 | Encounter | [facility] | [address] | Fecal urgency; | | | | [address] [place] | [address] | Diarrhea; | | | | [place], [place] | [place], [place] | Heartburn | | | | [address] | [address] | | | | | [phone] | | | +--------+ + + + [...] + + documented as of this encounter Medications at Time of Discharge + + + +---------+--------+ + | Medication | Sig | Dispensed | Refills | Start | End Date | | | | | | Date | | + + + +---------+--------+ + | Calcium Carbonate | Take 1 tablet by | | 0 | | | | (CALCIUM 500 PO) | mouth as needed. | | | | | + + + +---------+--------+ + | ibuprofen (ADVIL, | Take 200 mg by mouth | | 0 | | | | MOTRIN) 200 mg | every 6 hours as | | | | | | tablet | needed. | | | | | + + + +---------+--------+ + | Multiple Vitamin | Take 1 capsule by | | 0 | | | | (MULTIVITAMINS PO) | mouth Daily. | | | | | + + + +---------+--------+ + | albuterol (PROAIR | Inhale 2 puffs into | | 0 | | | | HFA) 90 mcg/puff | the lungs every 6 | | | | 8 | | inhaler | hours as needed. | | | | | + + + +---------+--------+ + | ascorbic acid | Take 500 mg by mouth | | 0 | | | | (VITAMIN C) 500 mg | Daily. | | | | 8 | | tablet | | | | | | + + + +---------+--------+ + | fish oil 1,000 mg | Take 1,000 mg by | | 0 | | | | capsule | mouth Daily. | | | | 8 | + + + +---------+--------+ + | FLUoxetine | Take 20 mg by mouth | | 0 | | | | (PROZAC) 20 mg | Daily. | | | | 8 | | capsule | | | | | | + + + +---------+--------+ + | omeprazole | Take 20 mg by mouth | | 0 | | | | (PRILOSEC) 20 mg | every morning | | | | 3 | | capsule | (before breakfast). | | | | | + + + +---------+--------+ + | | Take 1 capsule by | | 0 | | | | triamterene-hydrochl | mouth every morning. | | | | 8 | | orothiazide | | | | | | | (DYAZIDE) 37.5-25 MG | | | | | | | per capsule | | | | | | + + + +---------+--------+ + documented as of this encounter Progress Notes Rhina Johnson ARNP - 06/13/2013 8:11 AM PST Quick Note: Will follow up after procedure. Please schedule appointment. Thank you. Negative for romaine ba. documented in this encounter Plan of Treatment Not on filedocumented as of this encounter Procedures + +--------+ + + + | Procedure Name | Priori | Date/Time | Associated Diagnosis | Comments | | | ty | | | | + +--------+ + + + | CELIAC PANEL, IGA | Routin | 06/11/2013 | Abdominal pain | Results for this | | AND IGG | e | 9:51 AM | Fecal urgency | procedure are in the | | | | PST | Diarrhea Heartburn | results section. | + +--------+ + + + documented in this encounter Results Celiac Panel, IgA and [...] | | | | | | Performed: [facility], Serena [address] | | | | | | [address], [place] | | | | | | [id number]: [id number] | | | | + + + + + + + + | Specimen | + + | Blood specimen | | (specimen) | + + + + + + + | Performing | Address | City/State/Zipcode | Phone Number | | Organization | | | | + + + + + | [facility] | [address] | [place], [place] | [phone] | | [facility] | | [address] | | | - LABORATORY | | | | + + + + + | [facility] | [address] | [place], [place] | | | [facility] | | [address], [facility] | | | - LABORATORY | | | | + + + + + documented in this encounter Visit Diagnoses + + | Diagnosis | + + | Abdominal pain Abdominal pain, unspecified site | + + | Fecal urgency | + + | Diarrhea | + + | Heartburn | + + documented in this encounter"
--- OUTSIDE RECORDS SUMMARY | ~2020-04-23 | XMS | Encounter Summary ---
Demographics + + + | Address | [address] | | | [place] [address] | + + + | Home Phone | | + + + | Preferred Language | Unknown | + + + | Marital Status | | + + + | Confucianist Affiliation | Unknown | + + + | Race | White | + + + | Ethnic Group | Not or | + + + Author + + + | Author | [facility] | | | and [place] | + + + | Organization | [facility] | | | and [...] [place], [place] | | | | | [address] | | + + + + + Care Team Providers + +------+ + | Care Survey Coordinator Name | Role | Phone | + +------+ + | Vasiliy Bustillo DO | PCP | | + +------+ + Reason for Visit +---------+--------+ + | Reason | Onset | Comments | | | Date | | +---------+--------+ + | Results | 07/09/ | | | | 2018 | | +---------+--------+ + Encounter Details +--------+ + + + + | Date | Type | Department | Care Team | Description | +--------+ + + + + | 07/09/ | Telephone | [facility] | Vasiliy Bustillo | Results | | 2019 | | [facility] | E, DO [address] | | | | | MEDICAL CLIN[address] | [place], [place] | | | | | [address] [place], | [address] | | | | | [place] [address] | [phone] | | | | | [phone] | | | +--------+ + + + [...] encounter Miscellaneous Notes Telephone Encounter - Jessa Crotf CC CMA - 07/09/2019 12:24 PM PST----- Message from Vasiliy Bustillo DO sent at 07/09/2019 12:19 PM PST ----- Cholesterol elevated some; weight loss, exercise recommended. documented in this encounter Plan of Treatment Not on filedocumented as of this encounter Visit Diagnoses Not on filedocumented in this encounter"
--- OUTSIDE RECORDS SUMMARY | ~2020-04-23 | XMS | Encounter Summary ---
Demographics + + + | Address | [address] | | | [place] [address] | + + + | Home Phone | | + + + | Preferred Language | Unknown | + + + | Marital Status | | + + + | Holiness Affiliation | Unknown | + + + | Race | White | + + + | Ethnic Group | Not or | + + + Author + + + | Author | [facility] | | | and [place] | + + + | Organization | [facility] | | [...] [place], [place] | | | | | [address] | | + + + + + Care Team Providers + +------+ + | Care Vehicle Damage Appraiser Name | Role | Phone | + [...] | Specialty | Gastroenterol | Diagnoses | Keny, | Radha, | | | Services | ogy | | Vasiliy Jeff, | Gordon Mitchell, | | | Required | | Gastroesopha | DO [address] | [address] | | | | | geal reflux | [address] | [address] | | | | | disease, | [place], [place] | [place], | | | | | esophagitis | [address] | [place] [address] | | | | | presence not | Phone: | Phone: | | | | | specified | [phone] | [phone] | | | | | | Fax: | Fax: | | | | | | [phone] | [phone] | +--------+ + + + + + Self-referral (Routine) +--------+ + + + + + | Status | Reason | Specialty | Diagnoses / | Referred By | Referred To | | | | | Procedures | Contact | Contact | +--------+ + + + + + | Closed | Specialty | Sleep | Diagnoses | Keny, | [facility] | | | Services | Medicine | Sleep | Vasiliy E, | CLINIC SLEEP | | | Required | | apnea, | DO [address] | MEDICINE [address] | | | | | obstructive | [address] | [address] | | | | | | [place], [place] | [place], | | | | | | [address] | [place] | | | | | | Phone: | [address] | | | | | | [phone] | Phone: | | | | | | Fax: | [phone] | | | | | | [phone] | Fax: | | | | | | | [phone] | +--------+ + + + + + Self-referral (Routine) +--------+--------+ + + + + | Status | Reason | Specialty | Diagnoses / | Referred By | Referred To | | | | | Procedures | Contact | Contact | +--------+--------+ + + + + | Closed | | DME | Diagnoses | Keny, | | | | | | Sleep | Vasiliy E, | | | | | | apnea, | DO [address] | | | | | | obstructive | [address] | | | | | | Procedures | [place], [place] | | | | | | DME: CPAP | [address] | | | | | | | Phone: | | | | | | | [phone] | | | | | | | Fax: | | | | | | | [phone] | | +--------+--------+ + + + + Reason for Visit + + + | Reason | Comments | + + + | Lab Results | | + + + | Fatigue | | + + + Encounter Details +--------+---------+ + + + | Date | Type | Department | Care Team | Description | +--------+---------+ + + + | 07/03/ | Office | [facility] | Vasiliy Bustillo | Sleep apnea, | | 2019 | Visit | [facility] | E, DO [address] | obstructive (Primary | | | | MEDICAL CLIN[facility] [address] | [place], [place] | Dx); | | | [address] [place], | [address] | Gastroesophageal | | | | [place] [address] | [phone] | reflux disease, | | | | [phone] | | esophagitis presence | | | | | | not specified; | | | | | | Other depression; | | | | | | Hyperlipidemia, | | | | | | unspecified | | | | | | hyperlipidemia type; | | | | | | Abnormal | | | | | | urinalysis; Need for | | | | | | influenza | | | | | | vaccination; Need | | | | | | for hepatitis C | | | | | | screening test | +--------+---------+ + + + Social History [...] + + + | Blood Pressure | 140/84 | 07/03/2019 10:19 AM | | | | | PST | | + + + + + | Pulse | 74 | 07/03/2019 10:19 AM | | | | | PST | | + + + + + | Temperature | - | - | | + + + + + | Respiratory Rate | 14 | 07/03/2019 10:19 AM | | | | | PST | | + + + + + | Oxygen Saturation | 96% | 07/03/2019 10:19 AM | RA | | | | PST | | + + + + + | Inhaled Oxygen | - | - | | | Concentration | | | | + + + + + | Weight | 106.7 kg (235 lb 3.2 | 07/03/2019 10:19 AM | | | | oz) | PST | | + + + + + | Height | 170.2 cm (5' 7") | 07/03/2019 10:19 AM | Stated | | | | PST | | + + + + + | Body Mass Index | 36.84 | 07/03/2019 10:19 AM | | | | | PST | | + + + + + documented in this encounter Progress Notes Vasiliy Bustillo RandeeDO - 07/03/2019 10:40 AM PST Patient ID: Katherin Mota is a 54 y.o. year old female Chief Complaint: Chief Complaint Patient presents with Lab Results Fatigue Assessment 1. Sleep apnea, obstructive - DME: CPAP - Sleep Studies, External - AMB Referral 2. Gastroesophageal reflux disease, esophagitis presence not specified - esomeprazole (NEXIUM) 20 mg capsule; Take 1 capsule by mouth every morning (before breakf ast). Dispense: 30 capsule; Refill: 3 - Gastroenterology, External - AMB Referral 3. Other depression - FLUoxetine (PROZAC) 20 mg capsule; Take 2 capsules by mouth Daily. Dispense: 90 capsule; Refill: 3 4. Hyperlipidemia, unspecified hyperlipidemia type - Comprehensive Metabolic Panel; Future 5. Abnormal urinalysis - Urinalysis with Microscopic with Culture if Indicated; Future 6. Need for influenza vaccination - Influenza *PF 3 yrs or >, Quadrivalent PSKT or Vial (Fluzone) [[id number]] Plan: -Referral provided for sleep studies for a reevaluation. -CPAP mask ordered today. -Increased Fluoxetine dosage to 20 mg 2 tablets QD. -Discontinue omeprazole for now. -Referral provided to Dr. Chang in gastroenterology. -Initiated Nexium 40 mg QD. -Repeat UA and CMP ordered today. -Flu shot administered today. -FU PRN. Subjective: HPI: Patient presents to the clinic for a review of lab results and fatigue. She presents w ith her and her granddaughter. The patient had labs drawn on 06/07/19, with unremarkable results. Her UA seems to have been contaminated. She has disturbed sleep and fatigue. She reports falling asleep in the car, but waking up a t 3 am for no reason. She states this has occurred since mid summer. She has a CPAP, which s he is compliant with, but she has not downloaded it for a while. She admits that it feels li ke her sleep apnea was untreated. She requires a new sleep mask. The patient has anxiety that has been worsening lately due to managing her other conditions . She reports that she has started to experience social phobia. She is taking fluoxetine 20 mg QD but reports that the dosage has not been helping. She reports some heartburn-like symptoms in her upper abdomen that has been bothering her. She describes it as if "her pills are caught in her throat". She has been taking omeprazole QD with no relief. They have not been able to elevate their bed yet. Current Outpatient Medications Medication Sig Dispense Refill Calcium Carbonate (CALCIUM 500 PO) Take 1 tablet by mouth as needed. Estradiol-Norethindrone Acet 0.5-0.1 MG TABS FLUoxetine (PROZAC) 20 mg capsule Take 1 capsule by mouth Daily. 90 capsule 3 ibuprofen (ADVIL, MOTRIN) 200 mg tablet Take 200 mg by mouth every 6 hours as needed. Multiple Vitamin (MULTIVITAMINS PO) Take 1 capsule by mouth Daily. omeprazole (PRILOSEC) 20 mg capsule Take 1 capsule by mouth 2 times daily. 60 capsule 2 triamterene-hydrochlorothiazide (DYAZIDE) 37.5-25 MG per capsule Take 1 capsule by mout h every morning. 90 capsule 3 No current facility-administered medications for this visit. Patient Active Problem List Diagnosis Carpal tunnel syndrome Cervical spondylosis Essential hypertension GERD (gastroesophageal reflux disease) Hyperlipidemia IBS (irritable bowel syndrome) Impaired fasting glucose Lumbar spondylosis Osteoarthritis Depression Sleep apnea, obstructive Family History Problem Relation Age of Onset Breast cancer Mother Heart failure Father 80 No known problems Sister No known problems Brother Past Surgical History: Procedure Laterality Date CARPAL TUNNEL RELEASE Bilateral COLONOSCOPY 06/24/13 moderate colonic spasm. next due 10 years (06/07/2023) ENDOSCOPY 06/24/13 all bx negative SHOULDER SURGERY Left 2014 UPPER GASTROINTESTINAL ENDOSCOPY 06/24/13 Social History Socioeconomic History Marital status: Spouse name: Not on file Number of children: Not on file Years of education: Not on file Highest education level: Not on file Occupational History Not on file Social Needs Financial resource strain: Not on file Food insecurity: Worry: Not on file Inability: Not on file Transportation needs: Medical: Not on file Non-medical: Not on file Tobacco Use Smoking status: Never Smoker Smokeless tobacco: Never Used Substance and Sexual Activity Alcohol use: No Alcohol/week: 0.0 standard drinks Frequency: Never Binge frequency: Never Drug use: Never Sexual activity: Yes Partners: Female control/protection: Post-menopausal Lifestyle Physical activity: Days per week: Not on file Minutes per session: Not on file Stress: Not on file Relationships Social connections: Talks on phone: Not on file Gets together: Not on file Attends restorationism service: Not on file Active member of club or organization: Not on file Attends meetings of clubs or organizations: Not on file Relationship status: Not on file Intimate partner violence: Fear of current or ex partner: Not on file Emotionally abused: Not on file Physically abused: Not on file Forced sexual activity: Not on file Other Topics Concern Not on file Social History Narrative Not on file Allergies Allergen Reactions Hydrocodone vomting Review of Systems Constitutional: Positive for fatigue. Gastrointestinal: Positive for abdominal pain. Psychiatric/Behavioral: Positive for sleep disturbance. The patient is nervous/anxious. Objective: Vitals: BP 140/84 | Pulse 74 | Resp 14 | Ht 1.702 m (5' 7") Comment: Stated | Wt 106.7 kg (235 l b 3.2 oz) | LMP 07/18/2013 | SpO2 96% Comment: RA | No | BMI 36.84 kg/m Physical Exam Constitutional: She is oriented to person, place, and time. She appears well-developed and well-nourished. HENT: Head: Normocephalic and atraumatic. Right Ear: External ear normal. Left Ear: External ear normal. Nose: Nose normal. Mouth/Throat: Oropharynx is clear and moist. No oropharyngeal exudate. Eyes: Pupils are equal, round, and reactive to light. Conjunctivae and EOM are normal. Neck: Normal range of motion. Neck supple. No thyromegaly present. Cardiovascular: Normal rate, regular rhythm, normal heart sounds and intact distal pulses. Pulmonary/Chest: Effort normal and breath sounds normal. Abdominal: Soft. Bowel sounds are normal. Neurological: She is alert and oriented to person, place, and time. She has normal reflexes . Psychiatric: Her behavior is normal. Judgment and thought content normal. Her mood appears anxious. This documentation prepared by summer An scribe. All aspects of this chart review ed for accuracy and content by Vasiliy Bustillo DO at the date and time of service. Electronically signed by: Dr. Vasiliy Bustillo DO 07/03/2019 11:11 AM documented in this encounter Plan of Treatment + +------+--------+ + + | Name | Type | Priori | Associated Diagnoses | Order Schedule | | | | ty | | | + +------+--------+ + + | DME: CPAP | DME | Routin | Sleep apnea, | Ordered: 07/03/2019 | | | | e | obstructive | | + +------+--------+ + + | Comprehensive | Lab | Routin | Hyperlipidemia, | 1 Occurrences | | Metabolic Panel | | e | unspecified | starting 07/03/2019 | | | | | hyperlipidemia type | until 07/03/2020 | + +------+--------+ + + | Hepatitis C RNA, | Lab | Routin | Need for hepatitis | 1 Occurrences | | Quant, NAAT | | e | C screening test | starting 07/03/2019 | | | | | | until 07/03/2020 | + +------+--------+ + + + + +--------+ + + | Name | Type | Priori | Associated Diagnoses | Order Schedule | | | | ty | | | + + +--------+ + + | Sleep Studies, | Outpatient | Routin | Sleep apnea, | Ordered: 07/03/2019 | | External - AMB | Referral | e | obstructive | | | Referral | | | | | + + +--------+ + + | Gastroenterology, | Outpatient | Routin | Gastroesophageal | Ordered: 07/03/2019 | | External - AMB | Referral | e | reflux disease, | | | Referral | | | esophagitis presence | | | | | | not specified | | + + +--------+ + + documented as of this encounter Visit Diagnoses + + | Diagnosis | + + | Sleep apnea, obstructive - Primary Obstructive sleep apnea (adult) (pediatric) | + + | Gastroesophageal reflux disease, esophagitis presence not specified | + + | Other depression | + + | Hyperlipidemia, unspecified hyperlipidemia type | + + | Abnormal urinalysis Other nonspecific finding on examination of urine | + + | Need for influenza vaccination Need for prophylactic vaccination and inoculation | | against influenza | + + | Need for hepatitis C screening test Special screening examination for other specified | | viral diseases | + + documented in this encounter
--- OUTSIDE RECORDS SUMMARY | ~2020-04-23 | XMS | Encounter Summary ---
Demographics + + + | Address | [address] | | | [place] [address] | + + + | Home Phone | | + + + | Preferred Language | Unknown | + + + | Marital Status | | + + + | Anabaptist Affiliation | Unknown | + + + | Race | White | + + + | Ethnic Group | Not or | + + + Author + + + | Author | [facility] | | | and [place] | + + + | Organization | [facility] | | | and [place] | + + + | Address | Unknown | + + + | Phone | Unavailable | + + + Support + + + + + | Name | Relationship | Address | Phone | + + + + + | Justin Duran | ECON | [address] | | | | | [place], [place] | | | | | [address] | | + + + + + Care Team Providers + +------+ + | Care Personnel Assistant Name | Role | Phone | + +------+ + | Vasiliy Bustillo DO | PCP | | + +------+ + Encounter Details +--------+ + + + + | Date | Type | Department | Care Team | Description | +--------+ + + + + | 06/24/ | Hospital | [facility] | Derik Pardo MD | | | 2013 | Encounter | MED [facility] OP | [address], [place] | | | | | [address] | [address] [place], [place] | | | | | [place], [place] | [address] | | | | | [address] | | | | | | [phone] | | | +--------+ + + + [...] +---------+--------+ + documented as of this encounter Miscellaneous Notes Op Note - Derik Pardo MD - 06/24/2013 9:37 [place] [address] Patient Name: KATHERIN DURAN Provider: Derik Pardo MD Unit #: [id number] Location: [facility] #: [id number] : 1965 Gastroenterology Patient Name: Katherin Duran Procedure Date: 06/24/2013 9:37 AM Date of : 1965 Admit Type: Outpatient Age: 48 Room: Endo Room 1 Gender: Female Note Status: Finalized Attending MD: Derik Pardo MD Procedure: Upper GI endoscopy Indications: Oropharyngeal phase dysphagia, Suspected esophageal reflux, Diarrhea, Nausea Providers: Derik Pardo MD, Jordan Alves RN, Kadie Akers, Station Worker Referring MD: Ric Bustillo DO (Referring MD) Medicines: Midazolam 7 mg IV, Meperidine 100 mg IV, Cetacaine spray, Oxygen 4 liters/min nasocannula Complications: No immediate complications. Estimated blood loss: Minimal. Procedure : Pre-Anesthesia Assessment: - Prior to the procedure, a History and Physical was performed, and patient medications, allergies and sensitivities were reviewed. The patient's tolerance of previous anesthesia was reviewed. - The risks and benefits of the procedure and the sedation options and risks were discussed with the patient. All questions were answered and informed consent was obtained. - Patient identification and proposed procedure were verified prior to the procedure by the physician, the nurse and the oil burner technician. The procedure was verified in the endoscopy suite. - Airway Examination: normal oropharyngeal airway and neck mobility and Mallampati Class III (part of the uvula and soft palate visualized). - Mental Status Examination: alert and oriented. - ASA Grade Assessment: II - A patient with mild systemic disease. - After reviewing the risks and benefits, the patient was deemed in satisfactory condition to undergo the procedure. - The anesthesia plan was to use moderate sedation/analgesia (conscious sedation). - Immediately prior to administration of medications, the patient was re-assessed for adequacy to receive sedatives. - - The heart rate, respiratory rate, oxygen saturations, blood pressure, adequacy of pulmonary ventilation, and response to care were monitored throughout the procedure. - The physical status of the patient was re-assessed after the procedure. After obtaining informed consent, the endoscope was passed under direct vision. Throughout the procedure, the patient's blood pressure, pulse, and oxygen saturations were monitored continuously. The endoscope was introduced through the mouth, and advanced to the third part of duodenum. The upper GI endoscopy was accomplished without difficulty. The patient tolerated the procedure well. Findings: The cricopharyngeus, upper third of the esophagus, middle third of the esophagus and lower third of the esophagus were normal. The scope was withdrawn. Dilation was performed with a Patino dilator with no resistance at 48 Fr and mild resistance at 48 Fr. Biopsies were taken with a cold forceps for histology. Estimated blood loss was minimal. Verification of patient identification for the specimen was done. Estimated blood loss was minimal. A gaping lower esophageal sphincter was found. Diffuse mild inflammation was found in the gastric antrum. Biopsies were taken with a cold forceps for Helicobacter pylori testing using CLOtest. Verification of patient identification for the specimen was done. Estimated blood loss was minimal. The duodenal bulb, first part of the duodenum, 2nd part of the duodenum, area of the papilla and 3rd part of the duodenum were normal. Biopsies were taken with a cold forceps for histology. Verification of patient identification for the specimen was done. Estimated blood loss was minimal. The retroflexed view confirmed previous findings, Impression: - Normal cricopharyngeus, upper third of esophagus, middle third of esophagus and lower third of esophagus. Dilated. Biopsied. - Gaping lower esophageal sphincter. - Gastritis. Biopsied. - Normal duodenal bulb, first part of the duodenum, 2nd part of the duodenum, area of the papilla and 3rd part of the duodenum. Biopsied. - The retroflexed view confirmed previous findings, Recommendation: - Discharge patient to home (ambulatory). - Return to previous diet today. - Perform a colonoscopy today. - Continue present medications. - Await pathology results. - Return to primary care physician as previously scheduled. - Telephone GI clinic for pathology results in 1 week. Derik Pardo MD 06/24/2013 10:19 AM This report has been signed electronically. Number of Addenda: 0 Note Initiated On: 06/24/2013 9:37 AM [facility], [address] [place] [id number] Derik Pardo MD 1019 p Note - Jovan Pardo MD - 06/24/2013 9:36 [place] [address] Patient Name: KATHERIN DURAN Provider: Derik Pardo MD Unit #: [id number] [id number] : 1965 Gastroenterology Patient Name: Katherin Duran Procedure Date: 06/24/2013 9:36 AM Date of : 1965 Admit Type: Outpatient Age: 48 Room: Endo Room 1 Gender: Female Note Status: Finalized Attending MD: Derik Pardo MD Procedure: Colonoscopy Indications: Change in bowel habits, Clinically significant diarrhea of unexplained origin Providers: Derik Pardo MD, Jordan Alves RN, Unique Butt, Station Worker Referring MD: Ric Bustillo DO (Referring MD) Medicines: Midazolam 7 mg IV, Meperidine 100 mg IV, Oxygen 4 liters/min nasocannula Complications: No immediate complications. Estimated blood loss: Minimal. Procedure : Pre-Anesthesia Assessment: - Prior to the procedure, a History and Physical was performed, and patient medications, allergies and sensitivities were reviewed. The patient's tolerance of previous anesthesia was reviewed. - The risks and benefits of the procedure and the sedation options and risks were discussed with the patient. All questions were answered and informed consent was obtained. - Patient identification and proposed procedure were verified prior to the procedure by the physician, the nurse and the oil burner technician. The procedure was verified in the endoscopy suite. - Airway Examination: normal oropharyngeal airway and neck mobility and Mallampati Class III (part of the uvula and soft palate visualized). - Mental Status Examination: alert and oriented. - ASA Grade Assessment: II - A patient with mild systemic disease. - After reviewing the risks and benefits, the patient was deemed in satisfactory condition to undergo the procedure. - The anesthesia plan was to use moderate sedation/analgesia (conscious sedation). - Immediately prior to administration of medications, the patient was re-assessed for adequacy to receive sedatives. - The heart rate, respiratory rate, oxygen saturations, blood pressure, adequacy of pulmonary ventilation, and response to care were monitored throughout the procedure. - The physical status of the patient was re-assessed after the procedure. After I obtained informed consent, the scope was passed under direct vision. Throughout the procedure, the patient's blood pressure, pulse, and oxygen saturations were monitored continuously. The endoscope was introduced through the anus and advanced to 10 cm into the ileum. The colonoscopy was performed without difficulty. The patient tolerated the procedure well. The quality of the bowel preparation was good. Findings: The perianal and digital rectal examinations were normal. Pertinent negatives include normal sphincter tone and no palpable rectal lesions. There was moderate spasm in the sigmoid colon. Biopsies were taken with a cold forceps for histology. Verification of patient identification for the specimen was done. Estimated blood loss was minimal. The ileum, 10 cm from the ileocecal valve appeared normal. Biopsies were taken with a cold forceps for histology. Verification of patient identification for the specimen was done. Estimated blood loss was minimal. The exam was otherwise without abnormality. The retroflexed view of the distal rectum and anal verge was normal and showed no anal or rectal abnormalities. Impression: - Moderate colonic spasm consistent with irritable bowel syndrome. Biopsied. - The examined portion of the ileum was normal. Biopsied. - The examination was otherwise normal. - The distal rectum and anal verge are normal on retroflexion view. Recommendation : - Discharge patient to home (ambulatory). - Return to previous diet today. - Continue present medications. - Await pathology results. - Repeat colonoscopy in 10 years for screening purposes. - Return to primary care physician as previously scheduled. - Telephone GI clinic if symptomatic. Derik Pardo MD 06/24/2013 10:24 AM This report has been signed electronically. Number of Addenda: 0 Note Initiated On: 06/24/2013 9:36 AM [facility], [address] [place] [address] Derik Pardo MD [phone] documented in this e ncounter Plan of Treatment Not on filedocumented as of this encounter Procedures + +--------+ + + + | Procedure Name | Priori | Date/Time | Associated Diagnosis | Comments | | | ty | | | | + +--------+ + + + | HELICOBACTER PYLORI | Routin | 06/24/2013 | | Results for this | | BIOPSY | e | 2:39 PM | | procedure are in the | | | | PST | | results section. | + +--------+ + + + | OCCULT BLOOD, STOOL, | Routin | 06/24/2013 | | Results for this | | FOR COLORECTAL | e | 10:27 AM | | procedure are in the | | NEOPLASM SCREENING | | PST | | results section. | + +--------+ + + + | OCCULT BLOOD, STOOL, | Routin | 06/24/2013 | | Results for this | | FOR COLORECTAL | e | 10:27 AM | | procedure are in the | | NEOPLASM SCREENING | | PST | | results section. | + +--------+ + + + | OVA AND PARASITE | Routin | 06/24/2013 | | Results for this | | EXAMINATION | e | 10:27 AM | | procedure are in the | | | | PST | | results section. | + +--------+ + + + | CRYPTOSPORIDIUM AG | Routin | 06/24/2013 | | Results for this | | | e | 10:27 AM | | procedure are in the | | | | PST | | results section. | + +--------+ + + + | FECAL LEUKOCYTES | Routin | 06/24/2013 | | Results for this | | | e | 10:27 AM | | procedure are in the | | | | PST | | results section. | + +--------+ + + + | FECAL LEUKOCYTES | Routin | 06/24/2013 | | Results for this | | | e | 10:27 AM | | procedure are in the | | | | PST | | results section. | + +--------+ + + + | GIARDIA AG, EIA, | Routin | 06/24/2013 | | Results for this | | STOOL | e | 10:27 AM | | procedure are in the | | | | PST | | results section. | + +--------+ + + + | CLOSTRIDIUM | Routin | 06/24/2013 | | Results for this | | DIFFICILE TOXIN | e | 10:27 AM | | procedure are in the | | | | PST | | results section. | + +--------+ + + + | CLOSTRIDIUM | Routin | 06/24/2013 | | Results for this | | DIFFICILE TOXIN | e | 10:27 AM | | procedure are in the | | | | PST | | results section. | + +--------+ + + + | CULTURE, STOOL | Routin | 06/24/2013 | | Results for this | | | e | 10:27 AM | | procedure are in the | | | | PST | | results section. | + +--------+ + + + | HELICOBACTER PYLORI | Routin | 06/24/2013 | | Results for this | | BIOPSY | e | 9:47 AM | | procedure are in the | | | | PST | | results section. | + +--------+ + + + documented in this encounter Results Helicobactor pylori Biopsy (06/24/2013 2:39 PM PST) + + + + + + | Component | Value | Ref Range | Performed | Pathologist | | | | | At | Signature | + + + + + + | GASTRIC | Negative for Urease | | [facility] | | | BIOPSY | | | [facility] | | | UREASE TEST | | | MEDICAL | | | [...] | + + + + + | [facility] | [address] | [place], [place] | [phone] | | [facility] | | [address] | | | - LABORATORY | | | | + + + + + | [facility] | [address] | [place], [place] | | | [facility] | | [facility], [facility] | | | - LABORATORY | | | | + + + + + Clostridium difficile Toxin (06/24/2013 10:27 AM PST) + + + + + + | Component | Value | Ref Range | Performed | Pathologist | | | | | At | Signature | + + + + + + | C difficile | No Clostridium Difficile | | [facility] | | | Toxins | toxin detected. Up to 3 | | [facility] | | | A+B, EIA | stool specimens (not | | MEDICAL | | | | more than 1 per day) | | CENTER - | | | | tested per patient. | | LABORATORY | | | | NEGATIVE | | | | | | per patient. | | | | | | | | | | | |NEGATIVE | | | | | | | | | | + + + + + + + + | Specimen | + + | | + + + + + + + | Performing | Address | City/State/Zipcode | Phone Number | | Organization | | | | + + + + + | [facility] | [address] | [place], [place] | [phone] | | [facility] | | [address] | | | - LABORATORY | | | | + + + + + | [facility] | [address] | [place], [place] | | | [facility] | | [address] | | | - LABORATORY | | | | + + + + + Occult Blood, Stool, 1-3 Specimen(s) (06/24/2013 10:27 AM PST) + + + + + + | Component | Value | Ref Range | Performed | Pathologist | | | | | At | Signature | + + + + + + | FECAL | 06/24/13 | | [facility] | | | OCCULT WEROD | | | [facility] | | | | Negative | | MEDICAL | | | | [...] | + + + + + | [facility] | [address] | [place] | [phone] | | [facility] | | [address] | | | - LABORATORY | | | | + + + + + | [facility] | [address] | [place] | | | [facility] | | [address] | | | - LABORATORY | | | | + + + + + Fecal leukocytes (06/24/2013 10:27 AM PST) + +--------+ + + + | Component | Value | Ref Range | Performed | Pathologist | | | | | At | Signature | + +--------+ + + + | Source | STOOL | | [facility] | | | | | | [facility] | | | | | | MEDICAL | | | | | | CENTER - | | | | | | LABORATORY | | + +--------+ + + + | Fecal | 1+ WBC | | [facility] | | | Leukocytes | | | [facility] | | | | | | MEDICAL | | | | | | CENTER - | | | | | | LABORATORY | | + +--------+ + + + + + | Specimen | + + | | + + + + + + + | Performing | Address | City/State/Zipcode | Phone Number | | Organization | | | | + + + + + | [facility] | [address] | [place], [place] | [phone] | | [facility] | | [address] | | | - LABORATORY | | | | + + + + + | [facility] | [address] | [place], [place] | | | [facility] | | [address] [place] [address] | | | - LABORATORY | | | | + + + + + Clostridium difficile Toxin (06/24/2013 10:27 AM PST) + + + + + + | Component | Value | Ref Range | Performed | Pathologist | | | | | At | Signature | + + + + + + | C difficile | No Clostridium | | [facility] | | | Toxins | Difficile toxin | | [facility] | | | A+B, EIA | detected. Up to 3 stool | | MEDICAL | | | | specimens (not more than | | CENTER - | | | | 1 per day) tested per | | LABORATORY | | | | patient.RESULT:NEGATIVE | | | | | | | | | | | | per patient. | | | | | |RESULT: | | | | | |NEGATIVE | | | | + + + + + + + + | Specimen | + + | Other - Other | + + + + + + + | Performing | Address | City/State/Zipcode | Phone Number | | Organization | | | | + + + + + | [facility] | [address] | [place] | [phone] | | [facility] | | [address] | | | - LABORATORY | | | | + + + + + | [facility] | [address] | [place], [place] | | | [facility] | | [id number] | | | - LABORATORY | | | | + + + + + Ova and Parasite Examination (06/24/2013 10:27 AM PST) + + + + + + | Component | Value | Ref Range | Performed | Pathologist | | | | | At | Signature | + + + + + + | Ova + | Accession No. | | [facility] | | | Parasite | [id number] Source | | [facility] | | | Exam | StoolResult CONCENTRATED | | MEDICAL | | | | WET MOUNT: No Ova or | | CENTER - | | | | Parasites seen | | LABORATORY | | | | TRICHROME STAIN: No Ova | | | | | | or Parasites seen. | | | | | | Few fecal leukocytes | | | | | | seen.This test will not | | | | | | detect | | | | | | Cyclospora,Cryptosporidi | | | | | | um or Isospora. Forthose | | | | | | organisms refer to | | | | | | CoccidiaStain (test code | | | | | | CRYSM). | | | | + + + + + + | Specimen | Report Status Final | | [facility] | | | Status | 06/25/2013Testing | | [facility] | | | | Performed: [place] | | MEDICAL | | | | [facility] | | CENTER - | | | | [place],[address], | | LABORATORY | | | | [place] [address] | | | | | | CLIA: [id number] | | | | + + + + + + + + | Specimen | + + | Other - Other | + + + + + + + | Performing | Address | City/State/Zipcode | Phone Number | | Organization | | | | + + + + + | [facility] | [address] | [place], [place] | [phone] | | [facility] | | [address] | | | - LABORATORY | | | | + + + + + | [facility] | [address] | [place], [place] | | | [facility] | | [address], [facility] | | | - LABORATORY | | | | + + + + + Occult Blood, Stool, 1-3 Specimen(s) (06/24/2013 10:27 AM PST) + + + + + + | Component | Value | Ref Range | Performed | Pathologist | | | | | At | Signature | + + + + + + | FECAL | Date: | | [facility] | | | OCCULT BLD | 06/24/13 | | [facility] | | | | Card #1 Occult Blood: | | MEDICAL | | | | Negative | | CENTER - | | | | | | LABORATORY | | + + + + + + + + | Specimen | + + | Other - Other | + + + + + + + | Performing | Address | City/State/Zipcode | Phone Number | | Organization | | | | + + + + + | [facility] | [address] | [place], [place] | [phone] | | [facility] | | [address] | | | - LABORATORY | | | | + + + + + | [facility] | [address] | [place], [place] | | | [facility] | | [address] | | | - LABORATORY | | | | + + + + + Cryptosporidium Ag (06/24/2013 10:27 AM PST) + + + + + + | Component | Value | Ref Range | Performed | Pathologist | | | | | At | Signature | + + + + + + | Cryptospori | Negative for | | [facility] | | | dium | Cryptosporidium Antigen | | [facility] | | | Antigen | by Rapid Immunoassay | | MEDICAL | | | | testing. | | CENTER - | | | | | | LABORATORY | | + + + + + + + + | Specimen | + + | Other - Other | + + + + + + + | Performing | Address | City/State/Zipcode | Phone Number | | Organization | | | | + + + + + | [facility] | [address] | [place] | [phone] | | [facility] | | [address] | | | - LABORATORY | | | | + + + + + | [facility] | [address] | [place] | | | [facility] | | [address] | | | - LABORATORY | | | | + + + + + Giardia Ag, EIA, Stool (06/24/2013 10:27 AM PST) + + + + + + | Component | Value | Ref Range | Performed | Pathologist | | | | | At | Signature | + + + + + + | Giardia | Negative for Giardia | | [facility] | | | Antigen, | Lamblia Antigen by Rapid | | [facility] | | | Stool | Immunoassay. | | MEDICAL | | | |by Rapid Immunoassay. | | CENTER - | | | | | | LABORATORY | | + + + + + + + + | Specimen | + + | Other - Other | + + + + + + + | Performing | Address | City[facility] | Phone Number | | Organization | | | | + + + + + | [facility] | [address] | [place] | [phone] | | [facility] | | [address] | | | - LABORATORY | | | | + + + + + | [facility] | [address] | [place] | | | [facility] | | [address], [place] | | | - LABORATORY | | | | + + + + + Culture, Stool (06/24/2013 10:27 AM PST) + + + + + -+ | Component | Value | Ref Range | Performed | Pathologist | | | | | At | Signature | + + + + + -+ | Gram Stain | GRAM STAIN: | | [facility] | | | Result | NO WBC SEEN | | [facility] | | | | MIXED INDIGENOUS TIFFANY | | MEDICAL | | | | | | CENTER - | | | | | | LABORATORY | | + + + + + -+ | Culture, | Indig/Tiffany | | [facility] | | | stool | (Reportable)Many Mixed | | [facility] | | | | Indigenous Tiffany No | | MEDICAL | | | | Salmonella, Shigella, | | CENTER - | | | | Aeromonas, Pleisiomonas | | LABORATORY | | | | or Yersinia | | | | | | isolated.Final Report | | | | | | (Reportable)- | | | | + + + + + -+ | E coli, | Negative for Shiga | | [facility] | | | Shiga toxin | Toxin-producing strain | | [facility] | | | Assay | of Escherichia coli | | MEDICAL | | | | (STEC). Physician Note: | | CENTER - | | | | Symptoms of STEC are not | | LABORATORY | | | | well differentiated and | | | | | | may resemble | | | | | | Appendicitis, | | | | | | Inflammatory Bowel | | | | | | Disease, Infectious | | | | | | Colitis, and C. | | | | | | Difficile Associated | | | | | | Disease.RESULT:NEGATIVE | | | | | |and C. Difficile Associated Disease. | | | | | |RESULT: | | | | | |NEGATIVE | | | | + + + + + -+ | Campylobact | Negative for | | [facility] | | | er Ag | CAMPYLOBACTER | | [facility] | | | | SPECIES.RESULT:NEGATIVE | | MEDICAL | | | |NEGATIVE | | CENTER - | | | | | | LABORATORY | | + + + + + -+ + + | Specimen | + + | Other - Other | + + + + + + + | Performing | Address | City/State/Zipcode | Phone Number | | Organization | | | | + + + + + | [facility] | [address] | [place], [place] | [phone] | | [facility] | | [address] | | | - LABORATORY | | | | + + + + + | [facility] | [address] | [place], [place] | | | [facility] | | [address], [facility] | | | - LABORATORY | | | | + + + + + Fecal leukocytes (06/24/2013 10:27 AM PST) + +--------+ + + + | Component | Value | Ref Range | Performed | Pathologist | | | | | At | Signature | + +--------+ + + + | Source | STOOL | | [facility] | | | | | | [facility] | | | | | | MEDICAL | | | | | | CENTER - | | | | | | LABORATORY | | + +--------+ + + + | Fecal | 1+ WBC | | [facility] | | | Leukocytes | | | [facility] | | | | | | MEDICAL | | | | | | CENTER - | | | | | | LABORATORY | | + +--------+ + + + + + | Specimen | + + | | + + + + + | Narrative | Performed At | + + + | [facility] | [facility] | | | [facility] | | | [facility] | | | - LABORATORY | + + + + + + + + | Performing | Address | City/State/Zipcode | Phone Number | | Organization | | | | + + + + + | [facility] | [address] | [place] | [phone] | | [facility] | | [address] | | | - LABORATORY | | | | + + + + + | [facility] | [address] | [place] | | | [facility] | | [address] | | | - LABORATORY | | | | + + + + + Helicobactor pylori Biopsy (06/24/2013 9:47 AM PST) + + + + + + | Component | Value | Ref Range | Performed | Pathologist | | | | | At | Signature | + + + + + + | GASTRIC | H. PYLORI BIOPSY: | | [facility] | | | BIOPSY | Negative for Urease | | [facility] | | | UREASE TEST | | | MEDICAL | | | | | | CENTER - | | | | | | LABORATORY | | + + + + + + + + | Specimen | + + | Soft tissue sample | | (specimen) - Other | + + + + + | Narrative | Performed At | + + + | Collect By: Nurse | [facility] | | | [facility] | | | [facility] | | | - LABORATORY | + + + + + + + + | Performing | Address | City/State/Zipcode | Phone Number | | Organization | | | | + + + + + | [facility] | [address] | [place] | [phone] | | [facility] | | [address] | | | - LABORATORY | | | | + + + + + | [facility] | [address] | [place] | | | [facility] | | [address], [facility] | | | - LABORATORY | | | | + + + + + documented in this encounter Visit Diagnoses Not on filedocumented in this encounter"
--- OUTSIDE RECORDS SUMMARY | ~2020-04-23 | XMS | Clinical Summary ---
Demographics + + + | Address | [address] | | | [place] [address] | + + + | Home Phone | | + + + | Preferred Language | Unknown | + + + | Marital Status | | + + + | Lutheran Affiliation | Unknown | + + + | Race | White | + + + | Ethnic Group | Not or | + + + Author + + + | Author | [facility] | | | and [place] | + + + | Organization | [facility] [...] [place], [place] | | | | | [address] | | + + + + + Care Team Providers + +------+ + | Care Ingredient Handler Name | Role | Phone | + +------+ + | Vasiliy Bustillo DO | PCP | | + +------+ + Allergies + + + + + + | Active Allergy | Reactions | Severity | Noted | Comments | | | | | Date | | + + + + + + | Hydrocodone | Nausea And Vomiting | Low | 06/11/20 | | | | | | 13 | | + + + + + + Medications + + + +---------+------+------+-------+ | Medication | Sig | Dispensed | Refills | Star | End | Statu | | | | | | t | Date | s | | | | | | Date | | | + + + +---------+------+------+-------+ | Calcium Carbonate | Take 1 tablet by | | 0 | | | Activ | | (CALCIUM 500 PO) | mouth as needed. | | | | | e | + + + +---------+------+------+-------+ | ibuprofen (ADVIL, | Take 200 mg by mouth | | 0 | | | Activ | | MOTRIN) 200 mg | every 6 hours as | | | | | e | | tablet | needed. | | | | | | + + + +---------+------+------+-------+ | Multiple Vitamin | Take 1 capsule by | | 0 | | | Activ | | (MULTIVITAMINS PO) | mouth Daily. | | | | | e | + + + +---------+------+------+-------+ | | Take 1 capsule by | 90 | 3 | 11/0 | | Activ | | triamterene-hydrochl | mouth every morning. | capsule | | 8/20 | | e | | orothiazide | | | | 19 | | | | (DYAZIDE) 37.5-25 MG | | | | | | | | per | | | | | | | | capsuleIndications: | | | | | | | | Essential | | | | | | | | hypertension | | | | | | | + + + +---------+------+------+-------+ | | | | 0 | 09/2 | | Activ | | Estradiol-Norethindr | | | | 4/20 | | e | | one Acet 0.5-0.1 MG | | | | 19 | | | | TABS | | | | | | | + + + +---------+------+------+-------+ | FLUoxetine | Take 2 capsules by | 90 | 3 | 11/2 | | Activ | | (PROZAC) 20 mg | mouth Daily. | capsule | | 7/20 | | e | | capsuleIndications: | | | | 19 | | | | Other depression | | | | | | | + + + +---------+------+------+-------+ | Cetirizine HCl | Take 1 tablet by | | 0 | | | Activ | | (ZYRTEC ALLERGY PO) | mouth Daily as | | | | | e | | | needed. | | | | | | + + + +---------+------+------+-------+ | esomeprazole | Take 1 capsule by | 90 | 3 | 04/0 | | Activ | | (NEXIUM) 20 mg | mouth every morning | capsule | | 7/20 | | e | | capsuleIndications: | (before breakfast). | | | 20 | | | | Gastroesophageal | | | | | | | | reflux disease, | | | | | | | | esophagitis presence | | | | | | | | not specified | | | | | | | + + + +---------+------+------+-------+ | amLODIPine | Take 1 tablet by | 90 | 3 | 03/07 | | Activ | | (NORVASC) 5 mg | mouth Daily. | tablet | | 02/23 | | e | | tabletIndications: | | | | 20 | | | | Hypertension, | | | | | | | | unspecified type | | | | | | | + + + +---------+------+------+-------+ Active Problems + + + | Problem | Noted Date | + + + | Obstructive sleep apnea on CPAP | 09/03/2019 | + + + + + | Overview: Uses CPAP | + + + + + | Depression | 06/01/2018 | + + + | Carpal tunnel syndrome | | + + + | Cervical spondylosis | | + + + | HTN (hypertension) | | + + + | GERD (gastroesophageal reflux disease) | | + + + | Hyperlipidemia | | + + + | IBS (irritable bowel syndrome) | | + + + | Impaired fasting glucose | | + + + | Lumbar spondylosis | | + + + | Osteoarthritis | | + + + Resolved Problems + + + + | Problem | Noted | Resolved | | | Date | Date | + + + + | Gastroesophageal reflux disease, esophagitis presence not | 09/03/19 | | | specified | 20 | 0 | + + + + + + | Overview: Added automatically from request for surgery | | [id number] | + + + + + + | Sleep apnea, obstructive | 07/03/20 | | | | 19 | 0 | + + + + Encounters +--------+ + + + + | Date | Type | Specialty | Care Team | Description | +--------+ + + + + | 03/23/ | Office | Primary Care | Vasiliy Bustillo | Hypertension, | | 2019 | Visit | | E, DO | unspecified type | | | | | | (Primary Dx) | +--------+ + + + + | 03/18/ | Clinical | Primary Care | Vasiliy Bustillo | | | 2019 | Support | | E, DO | | +--------+ + + + + from Last 3 Months Immunizations + + + + | Name | Administration Dates | Next Due | + + + + | INFLUENAZ PF 18-64 | 07/01/2015 | | | YRS,QUAD INTRADERMAL | | | + + + + | INFLUENZA PF | 07/03/2019 | | | QUAD(PED/ADOL/ADULT) | | | | ,PSKT or VIAL | | | + + + + | TDAP, (ADOL/ADULT) | 08/07/2007 | | + + + + Family History + + +------+ + | Medical History | Relation | Name | Comments | + + +------+ + | No known problems | Brother | | | + + +------+ + | Heart failure | Father | | | + + +------+ + | Breast cancer | Mother | | | + + +------+ + | No known problems | Sister | | | + + +------+ + + +------+ + + | Relation | Name | Status | Comments | + +------+ + + | Brother | | Alive | | + +------+ + + | Father | | Alive | | + +------+ + + | Mother | | | breast cancer | | | | (Age | | | | | 56) | | + +------+ + + | Sister | | Alive | | + +------+ + + Social [...] + + + | Blood Pressure | 138/86 | 03/23/2020 2:21 PM | RIGHT arm large cuff | | | | PDT | | + + + + + | Pulse | 76 | 03/23/2020 2:19 PM | | | | | PDT | | + + + + + | Temperature | 37 C (98.6 F) | 03/23/2020 2:19 PM | | | | | PDT | | + + + + + | Respiratory Rate | 16 | 03/23/2020 2:19 PM | | | | | PDT | | + + + + + | Oxygen Saturation | 98% | 03/23/2020 2:19 PM | | | | | PDT | | + + + + + | Inhaled Oxygen | - | - | | | Concentration | | | | + + + + + | Weight | 108.4 kg (239 lb) | 03/23/2020 2:19 PM | | | | | PDT | | + + + + + | Height | 172.7 cm (5' 8") | 03/23/2020 2:19 PM | | | | | PDT | | + + + + + | Body Mass Index | 36.34 | 03/23/2020 2:19 PM | | | | | PDT | | + + + + + Plan of Treatment + + + + + | Health Maintenance | Due Date | Last | Comments | | | | Done | | + + + + + | Hepatitis C | | | | | Screening | 4 | | | + + + + + | Vaccine: Zoster (1 | | | | | of 2) | 4 | | | + + + + + | Vaccine: Influenza | | 07/03/20 | | | (#1) | 0 | 19, | | | | | 07/01/20 | | | | | 15 | | + + + + + | Breast Cancer | | | Postponed from 2019 ([address]) | | Screening | 0 | | | + + + + + | Med Mgmt: BUN | | 07/03/20 | | | | 0 | 19, | | | | | 07/09/20 | | | | | 18 | | + + + + + | Med Mgmt: Cr | | 07/03/20 | | | | 0 | 19, | | | | | 07/09/20 | | | | | 18, | | | | | 11/15/19 | | | | | 17 | | + + + + + | Med Mgmt: K | | 07/03/20 | | | | 0 | 19, | | | | | 07/09/20 | | | | | 18 | | + + + + + | Med Mgmt: Na | | 07/03/20 | | | | 0 | 19, | | | | | 07/09/20 | | | | | 18 | | + + + + + | Medication | | 07/03/20 | | | Management | 0 | 19 | | + + + + + | Vaccine: | | 08/07/19 | Postponed from 08/07/2017 (Patient | | Dtap/Tdap/Td (2 - | 0 | 08 | Declined) | | Td) | | | | + + + + + | Primary Care | | 03/23/20 | | | Outreach (Moderate | 1 | 20, | | | Risk) | | 07/03/20 | | | | | 19, | | | | | 06/01/20 | | | | | 18, | | | | | Addition | | | | | al | | | | | history | | | | | exists | | + + + + + | Cervical Cancer | | | Postponed from 1994 ([address]) | | Screening (Pap) | 2 | | | + + + + + | Colorectal Cancer | | 06/24/20 | | | Screening | 3 | 13, | | | (Colonoscopy) | | 06/24/20 | | | | | 13 | | + + + + + Results Not on filefrom Last 3 Months Insurance + +--------+ +--------+ + +--------+ | Payer | Benefi | Subscriber | Effect | Phone | Address | Type | | | t Plan | ID | farhad | | | | | | / | | Dates | | | | | | Group | | | | | | + +--------+ +--------+ + +--------+ | [employer] | SAIF | [id number] | [phone] | Indemn | | | WC | | 018-Pr | 5 | | ity | | | | | esent | | | | + +--------+ +--------+ + +--------+ | MODA | MODA | [id number] | 08/07/19 | [phone] | [address] | PPO | | | OEBB | | 19-Pre | 9 | [id number] | | | | [place] | | sent | | [place], | | | | [place] | | | | [place] [address] | | + +--------+ +--------+ + +--------+ | MODA | MODA | [id number] | | [phone] | [address] | PPO | | | OEBB | | 016-Pr | 9 | [phone] | | | | [place] | | esent | | [place], | | | | [place] | | | | [place] [address] | | + +--------+ +--------+ + +--------+ + +--------+ +--------+ + + | Guarantor Name | Accoun | Relation to | Date | Phone | Billing Address | | | t Type | Patient | of | | | | | | | | | | + +--------+ +--------+ + + | Katherin Mota | Person | Self | [birth year] | [address] | | | al/Barry | | 1965 | [phone] | [place] | | | [place] | | | [place] (Home) | [address] | | | | | | [phone] | | | | | | | 1 (Work) | | + +--------+ +--------+ + + | Katherin Mota | Person | Self | [birth year] | [address] | | | al/Fam | | 1965 | [phone] | [place], [place] | | | [place] | | | 0 (Home) | [address] | + +--------+ +--------+ + + | Katherin Mota | Worker | Self | [birth year] | [address] | | | s Comp | | 1964 | [phone] | [place] [address] | | | | | | 0 (Home) | | + +--------+ +--------+ + + | Katherin Mota | Person | Self | [birth year] | | [address] | | | al/Fam | | 1965 | [phone] | [place], [place] | | | [place] | | | 0 (Home) | [address] | + +--------+ +--------+ + + Advance Directives + + + + + | Type | Date Recorded | Patient | Explanation | | | | Olericulture Professor | | + + + + + | Power of | | | | | Rag Inspector | | | | + + + + + | Advance | 06/01/2018 | | | | Directive | 2:21 PM | | | + + + + +
--- OUTSIDE RECORDS SUMMARY | ~2020-04-23 | XMS | Encounter Summary ---
Demographics + + + | Address | [address] | | | [place] [address] | + + + | Home Phone | | + + + | Preferred Language | Unknown | + + + | Marital Status | | + + + | Christian Affiliation | Unknown | + + + | Race | White | + + + | Ethnic Group | Not or | + + + Author + + + | Author | [facility] | | | and [place] | + + + | Organization | [facility] | | [...] [place], [place] | | | | | [address] | | + + + + + Care Team Providers + +------+ + | Care Health Care Coordinator Name | Role | Phone | + +------+ + | Vasiliy Bustillo DO | PCP | | + +------+ + Reason for Visit + +--------+ + | Reason | Onset | Comments | | | Date | | + +--------+ + | Appointment | 06/13/ | | | | 2012 | | + +--------+ + Encounter Details +--------+ + + + + | Date | Type | Department | Care Team | Description | +--------+ + + + + | 06/13/ | Telephone | [facility] | [place], | [facility] | | 2012 | | GASTROENTEROLOGY | [address] | | | | | [address] | [address] | | | | | [address] [place] [place] | [place] | | | | | [address] | [address] | | | | | [phone] | | | +--------+ + + + [...] this encounter Miscellaneous Notes Telephone Encounter - Laila Camacho - 06/26/2013 9:24 AM PSTLeft voicemail to schedule codie low up with Prisca. elephone Randee bailey - Laila Camacho - 06/19/2013 3:49 PM PSTLeft voicemail to scheduleElectronically s igned by Laila Camacho at 06/19/2013 3:49 PM PSTTelephone Encounter - Yumiko Moore Ma ster of [place] - 06/13/2013 10:24 AM PSTPatient is scheduled for 06/24/13 procedure please prem felder to schedule a follow up with Prisca. Thank You documented in this encounter Plan of Treatment Not on filedocumented as of this encounter Visit Diagnoses Not on filedocumented in this encounter"
--- OUTSIDE RECORDS SUMMARY | ~2020-04-23 | XMS | Encounter Summary ---
Demographics + + + | Address | [address] | | | [place] [address] | + + + | Home Phone [...] + | Justin Mota | ECON | [place] | | | | | [place], [place] | | | | | [address] | | + + + + + Care Team Providers + +------+ + | Care Lease Analyst Name | Role | Phone | + +------+ + | Vasiliy Bustillo DO | PCP | | + +------+ + Reason for Visit + + + | Reason | Comments | + + + | Hypertension | Pt reports other facilities obtaining high BP readings. Pt has | | | pressure in left ear x2 weeks. | + + + Encounter Details +--------+---------+ + + + | Date | Type | Department | Care Team | Description | +--------+---------+ + + + | 03/23/ | Office | [facility] | Vasiliy Bustillo | Hypertension, | | 2020 | Visit | [facility] | E, DO [address] | unspecified type | | | | [facility] [address] | [place], [place] | (Primary Dx) | | | | [place], | [address] | | | | | [place] [address] | [phone] | | | | | [phone] | | | +--------+---------+ + + + [...] encounter Progress Notes Vasiliy Bustillo DO - 03/23/2020 2:40 PM PDT Patient ID: Katherin Mota is a 54 y.o. year old female Chief Complaint: Chief Complaint Patient presents with Hypertension Pt reports other facilities obtaining high BP readings. Pt has pressure in left ear x2 w eeks. Assessment 1. Hypertension, unspecified type - amLODIPine (NORVASC) 5 mg tablet; Take 1 tablet by mouth Daily. Dispense: 90 tablet; Ref ill: 3 Plan: -Her BP in the office today was 138/86. -Patient will continue Dyazide 37.5/25 mg. -Initiated amlodipine 5 mg in addition to the Dyazide. Reviewed possible side effects of co nstipation and swelling. SHARON reviewed. -Advised patient to replace the batteries in her blood pressure cuff. Patient will then [facility] record her blood pressure, and send me the readings via Propable in 04/2020. FU PRN. Subjective: HPI: Patient presents to the clinic for HTN. Patient has essential hypertension which she is managing with Dyazide Patient reports that she has had elevated blood pressure at other doctor's appointments. She went to the ER for a shingles evaluation, and her systolic BP was around 150. She occasionally check her blood p ressure at home and her systolic BP is usually in the 140s. Patient also reports pressure in her left ear for the past 2-3 weeks. She states that she c an hear her pulse. She denies ear pressure or pulsing today. Current Outpatient Medications Medication Sig Dispense Refill Calcium Carbonate (CALCIUM 500 PO) Take 1 tablet by mouth as needed. Cetirizine HCl (ZYRTEC ALLERGY PO) Take 1 tablet by mouth Daily as needed. esomeprazole (NEXIUM) 20 mg capsule Take 1 capsule by mouth every morning (before break fast). 90 capsule 3 Estradiol-Norethindrone Acet 0.5-0.1 MG TABS FLUoxetine (PROZAC) 20 mg capsule Take 2 capsules by mouth Daily. 90 capsule 3 ibuprofen (ADVIL, MOTRIN) 200 mg tablet Take 200 mg by mouth every 6 hours as needed. Multiple Vitamin (MULTIVITAMINS PO) Take 1 capsule by mouth Daily. triamterene-hydrochlorothiazide (DYAZIDE) 37.5-25 MG per capsule Take 1 capsule by mout h every morning. 90 capsule 3 No current facility-administered medications for this visit. Patient Active Problem List Diagnosis Carpal tunnel syndrome Cervical spondylosis HTN (hypertension) GERD (gastroesophageal reflux disease) Hyperlipidemia IBS (irritable bowel syndrome) Impaired fasting glucose Lumbar spondylosis Osteoarthritis Depression Obstructive sleep apnea on CPAP Family History Problem Relation Age of Onset Breast cancer Mother Heart failure Father 80 No known problems Sister No known problems Brother Past Surgical History: Procedure Laterality Date CARPAL TUNNEL RELEASE Bilateral COLONOSCOPY 06/24/13 moderate colonic spasm. next due 10 years (06/07/2023) ENDOSCOPY 06/24/13 all bx negative SHOULDER SURGERY Left 2015 UPPER GASTROINTESTINAL ENDOSCOPY 06/24/13 UPPER GASTROINTESTINAL ENDOSCOPY N/A 09/06/2019 Procedure: EGD; Surgeon: Derik Pardo MD; [facility]: [facility] Social History Socioeconomic History Marital status: Spouse name: Not on file Number of children: Not on file Years of education: Not on file Highest education level: Not on file Occupational History Not on file Social Needs Financial resource strain: Not on file Food insecurity Worry: Not on file Inability: Not on file Transportation needs Medical: Not on file Non-medical: Not on file Tobacco Use Smoking status: Never Smoker Smokeless tobacco: Never Used Substance and Sexual Activity Alcohol use: No Alcohol/week: 0.0 standard drinks Frequency: Never Binge frequency: Never Drug use: Never Sexual activity: Yes Partners: Female control/protection: Post-menopausal Lifestyle Physical activity Days per week: Not on file Minutes per session: Not on file Stress: Not on file Relationships Social connections Talks on phone: Not on file Gets together: Not on file Attends protestant service: Not on file Active member of club or organization: Not on file Attends meetings of clubs or organizations: Not on file Relationship status: Not on file Intimate partner violence Fear of current or ex partner: Not on file Emotionally abused: Not on file Physically abused: Not on file Forced sexual activity: Not on file Other Topics Concern Not on file Social History Narrative Not on file Allergies Allergen Reactions Hydrocodone Nausea And Vomiting Review of Systems HENT: Left ear pressure x2 weeks Objective: Vitals: BP 138/86 Comment: RIGHT arm large cuff | Pulse 76 | Temp 37 C (98.6 F) (Oral) | Resp 16 | Ht 1.727 m (5' 8") | Wt 108.4 kg (239 lb) | LMP 07/18/2013 Comment: more than 1 yea r | SpO2 98% | No | BMI 36.34 kg/m Physical Exam Constitutional: She is oriented to person, place, and time. She appears well-developed and well-nourished. No distress. HENT: Head: Normocephalic and atraumatic. Right Ear: External ear normal. Left Ear: External ear normal. Nose: Nose normal. Mouth/Throat: Oropharynx is clear and moist. Ears clear bilaterally Eyes: Pupils are equal, round, and reactive to light. Conjunctivae and EOM are normal. Neck: Normal range of motion. Neck supple. Cardiovascular: Normal rate, regular rhythm and normal heart sounds. Pulmonary/Chest: Effort normal and breath sounds normal. No respiratory distress. Abdominal: Soft. Bowel sounds are normal. She exhibits no distension. There is no abdominal tenderness. Musculoskeletal: Normal range of motion. Neurological: She is alert and oriented to person, place, and time. She has normal reflexes . Skin: Skin is warm. She is not diaphoretic. Psychiatric: She has a normal mood and affect. Her behavior is normal. Thought content norm al. This documentation prepared by Julianna Madsen medical imaging technician. All aspects of this chart revie wed for accuracy and content by Vasiliy Bustillo DO at the date and time of service. documented in this encounter Plan of Treatment Not on filedocumented as of this encounter Visit Diagnoses + + | Diagnosis | + + | Hypertension, unspecified type - Primary | + + documented in this encounter
--- OUTSIDE RECORDS SUMMARY | ~2020-04-23 | XMS | Encounter Summary ---
Demographics + + + | Address | [address] | | | [place] [address] | + + + | Home Phone | | + + + | Preferred Language | Unknown | + + + | Marital Status | | + + + | Yarsanism Affiliation | Unknown | + + + | Race | White | + + + | Ethnic Group | Not or | + + + Author + + + | Author | [facility] | | | and [place] | + + + | Organization | [facility] | | | [...] [place], [place] | | | | | [address] | | + + + + + Care Team Providers + +------+ + | Care Manager Product Design Name | Role | Phone | + +------+ + | Vasiliy Bustillo DO | PCP | | + +------+ + Reason for Visit + + + | Reason | Comments | + + + | Hypertension | BP check as per Dr. Bustillo | + + + Encounter Details +--------+ + + + + | Date | Type | Department | Care Team | Description | +--------+ + + + + | 03/18/ | Clinical | [facility] | Vasiliy Bustillo | | | 2020 | Support | [facility] | E, DO [address] | | | | | MEDICAL CLIN[facility] [address] | [place] | | | | [address] [facility], | [address] | | | | | [place] [address] | [phone] | | | | | [phone] | | | +--------+ + + + [...] this encounter Last Filed Vital Signs + +---------+ + + | Vital Sign | Reading | Time Taken | Comments | + +---------+ + + | Blood Pressure | 144/82 | 03/18/2020 1:20 PM | LEFT arm, large cuff | | | | PDT | | + +---------+ + + | Pulse | 80 | 03/18/2020 1:20 PM | | | | | PDT | | + +---------+ + + | Temperature | - | - | | + +---------+ + + | Respiratory Rate | - | - | | + +---------+ + + | Oxygen Saturation | - | - | | + +---------+ + + | Inhaled Oxygen | - | - | | | Concentration | | | | + +---------+ + + | Weight | - | - | | + +---------+ + + | Height | - | - | | + +---------+ + + | Body Mass Index | - | - | | + +---------+ + + documented in this encounter Progress Notes Ally Otto CC CMA - 03/18/2020 10:00 AM PDT Katherin Samantha Mota came to the clinic today for a blood pressure check. Blood Pressure o btained at 144/ 82, LEFT arm. P: 80bpm, O2: 98%, RR: 19. Patients current medication list is Current Outpatient Medications on File Prior to Visit Medication Sig Dispense Refill Calcium Carbonate (CALCIUM [...] 90 capsule 3 No current facility-administered medications on file prior to visit. No current facility-administered medications on file prior to visit. RAHUL Fulton RESIDENT SERVICES SUPERVISOR documented in this encounter Plan of Treatment Not on filedocumented as of this encounter Visit Diagnoses Not on filedocumented in this encounter"
--- OUTSIDE RECORDS SUMMARY | ~2020-04-23 | XMS | Encounter Summary ---
Demographics + + + | Address | [address] | | | [place] [address] | + + + | Home Phone | | + + + | Preferred Language | Unknown | + + + | Marital Status | | + + + | Druze Affiliation | Unknown | + + + | Race | White | + + + | Ethnic Group | Not or | + + + Author + + + | Author | [facility] | | | and [place] | + + + | Organization | [facility] | | | [...] [place], [place] | | | | | [address] | | + + + + + Care Team Providers + +------+ + | Care Any Commodity Sales Deliverer Name | Role | Phone | + +------+ + | Vasiliy Bustillo DO | PCP | | + +------+ + Reason for Visit + +--------+ + | Reason | Onset | Comments | | | Date | | + +--------+ + | Procedure | 08/08/ | Prop/Egd with Dr. Pardo | | | 2020 | | + +--------+ + Encounter Details +--------+ + + + + | Date | Type | Department | Care Team | Description | +--------+ + + + + | 08/08/ | Telephone | [facility] | Derik Pardo MD | Procedure (Prop/Egd | | 2020 | | GASTROENTEROLOGY | [address], [place] | with Dr. Pardo) | | | | [address] [facility] | [address] [facility] [place] | | | | | [address] [place] | [address] | | | | | [address] | | | | | | [phone] | | | +--------+ + + + [...] this encounter Miscellaneous Notes Telephone Encounter - Kathe Garcia CMA - 08/08/2019 11:03 AM PSTScheduled patient for P rop/Egd with Dr. Pardo on Monday09/06/2019, checking in at 0900, for GERD, and JANE. Reviewed medications, allergies, Insurance, mailing address and procedure instructions. Sur1 created and routed to RN to complete. 11: 52 AM PSTdocumented in this encounter Plan of Treatment Not on filedocumented as of this encounter Visit Diagnoses + + | Diagnosis | + + | Gastroesophageal reflux disease, esophagitis presence not specified - Primary | + + | JANE (obstructive sleep apnea) Obstructive sleep apnea (adult) (pediatric) | + + documented in this encounter"
--- OUTSIDE RECORDS SUMMARY | ~2020-04-23 | XMS | Encounter Summary ---
Demographics + + + | Address | [address] | | | [place] [address] | + + + | Home Phone | | + + + | Preferred Language | Unknown | + + + | Marital Status | | + + + | Oriental Orthodox Affiliation | Unknown | + + + | Race | White | + + + | Ethnic Group | Not or | + + + Author + + + | Author | [facility] | | | and [place] | + + + | Organization | [facility] | | | [...] [place], [place] | | | | | [address] | | + + + + + Care Team Providers + +------+ + | Care Latex Thread Machine Operator Name | Role | Phone | + +------+ + | Vasiliy Bustillo DO | PCP | | + +------+ + Reason for Visit +--------+--------+ + | Reason | Onset | Comments | | | Date | | +--------+--------+ + | Other | 08/21/ | insurance would not cover omeprazole | | | 2013 | | +--------+--------+ + Encounter Details +--------+ + + + + | Date | Type | Department | Care Team | Description | +--------+ + + + + | 08/21/ | Telephone | [facility] | [facility], | Other (insurance | | 2013 | | GASTROENTEROLOGY | [address] | would not cover | | | | [address] | [address] | omeprazole) | | | | [address] [place], [place] | [place], [place] | | | | | [address] | [address] | | | | | [phone] | | | +--------+ + + + [...] encounter Miscellaneous Notes Telephone Encounter - Beatrice Ashby, RN - 08/21/2013 10:15 AM PSTCalled patient back advise d that Prisca had sent in a prescription [facility]acid [facility] she verbalized understanding . elephone Encounter - Rhina Sandoval ARNP - 08/21/2013 9:49 AM PSTPrevacid sent to pharmacy. Thank you documented in t his encounter Plan of Treatment Not on filedocumented as of this encounter Visit Diagnoses Not on filedocumented in this encounter"
--- OUTSIDE RECORDS SUMMARY | ~2020-04-23 | XMS | Encounter Summary ---
Demographics + + + | Address | [address] | | | [place] [address] | + + + | Home Phone | | + + + | Preferred Language | Unknown | + + + | Marital Status | | + + + | Alevism Affiliation | Unknown | + + + | Race | White | + + + | Ethnic Group | Not or | + + + Author + + + | Author | [facility] | | | and [place] | + + + | Organization | [facility] | | | [...] [place], [place] | | | | | [address] | | + + + + + Care Team Providers + +------+ + | Care Repairer Kiln Car Name | Role | Phone | + +------+ + | Vasiliy Bustillo DO | PCP | | + +------+ + Reason for Visit + +--------+ + | Reason | Onset | Comments | | | Date | | + +--------+ + | Lab Results | 07/03/ | | | | 2019 | | + +--------+ + Encounter Details +--------+ + + + + | Date | Type | Department | Care Team | Description | +--------+ + + + + | 07/03/ | Telephone | [facility] | Vasiliy Bustillo | Lab Results | | 2019 | | [facility] | E, DO [address] | | | | | MEDICAL CL[facility] | [place], [place] | | | | | [address] [facility], | [address] | | | | | [place] [address] | [phone] | | | | | [phone] | | | +--------+ + + + [...] Encounter - Ally Otto CC CMA - 07/03/2019 5:22 PM PST----- Message from Fr ruthann Bustillo DO sent at 07/03/2019 5:13 PM PST ----- Repeat alk phos in one month. documented in this encounter Plan of Treatment + +------+--------+ + + | Name | Type | Priori | Associated Diagnoses | Order Schedule | | | | ty | | | + +------+--------+ + + | Alkaline Phosphatase | Lab | Routin | Elevated alkaline | Expected: | | | | e | phosphatase level | 01/20/2020, Expires: | | | | | | 07/03/2020 | + +------+--------+ + + documented as of this encounter Visit Diagnoses + + | Diagnosis | + + | Elevated alkaline phosphatase level - Primary Other nonspecific abnormal serum enzyme | | levels | + + documented in this encounter"
--- OUTSIDE RECORDS SUMMARY | ~2020-04-23 | XMS | Encounter Summary ---
Demographics + + + | Address | [address] | | | [place] [address] | + + + | Home Phone | | + + + | Preferred Language | Unknown | + + + | Marital Status | | + + + | Anglican Affiliation | Unknown | + + + | Race | White | + + + | Ethnic Group | Not or | + + + Author + + + | Author | [facility] | | | and [place] | + + + | Organization | [facility] | | | [...] [place], [place] | | | | | [address] | | + + + + + Care Team Providers + +------+ + | Care Prepared Foods Service Team Member Name | Role | Phone | + +------+ + | Vasiliy Bustillo DO | PCP | | + +------+ + Reason for Visit + +--------+ + | Reason | Onset | Comments | | | Date | | + +--------+ + | Medication Refill | 06/12/ | | | | 2019 | | + +--------+ + Encounter Details +--------+--------+ + + + | Date | Type | Department | Care Team | Description | +--------+--------+ + + + | 06/12/ | Refill | [facility] | Vasiliy Bustillo | Medication Refill | | 2019 | | [facility] | E, DO [address] | | | | | MEDICAL CLIN[address] | [facility] [place] | | | | | [address] [facility], | [address] | | | | | [place] [address] | [phone] | | | | | [phone] | | | +--------+--------+ + + + [...] Telephone Encounter - Neha Yuen CMA - 06/12/2019 9:00 AM PST Recent Visits 06/01/2018 Knee strain, left, initial encounter [facility] Vasiliy Bustillo DO Office Visit Pharmacy Confirmed:[facility]. Neha Yuen CMA documented in this e ncounter Plan of Treatment Not on filedocumented as of this encounter Visit Diagnoses + + | Diagnosis | + + | Other depression | + + | Essential hypertension Unspecified essential hypertension | + + documented in this encounter"
--- OUTSIDE RECORDS SUMMARY | ~2020-04-23 | XMS | Encounter Summary ---
Demographics + + + | Address | [address] | | | [place] [address] | + + + | Home Phone | | + + + | Preferred Language | Unknown | + + + | Marital Status | | + + + | Shinto Affiliation | Unknown | + + + | Race | White | + + + | Ethnic Group | Not or | + + + Author + + + | Author | [facility] | | | and [place] | + + + | Organization | [facility] | | | and [...] [place], [place] | | | | | [address] | | + + + + + Care Team Providers + +------+ + | Care Traveling Inventory Associate Name | Role | Phone | + +------+ + | Vasiliy Bustillo DO | PCP | | + +------+ + Reason for Visit + +--------+ + | Reason | Onset | Comments | | | Date | | + +--------+ + | Medication Refill | 11/11/ | Esomeprazole | | | 2020 | | + +--------+ + Encounter Details +--------+--------+ + + + | Date | Type | Department | Care Team | Description | +--------+--------+ + + + | 11/11/ | Refill | [facility] | Jessa Croft, | Medication Refill | | 2019 | | [facility] | CC TRUMPET PLAYER | (Esomeprazole) | | | | MEDICAL CLIN[facility] [address] | | | | | | [address] [facility] [place], | | | | | | [place] [address] | | | | | | [phone] | | | +--------+--------+ + + + [...] Notes Telephone Encounter - Jessa Croft CC TRUMPET PLAYER - 11/12/2019 10:00 AM PDT Filled 07/03/19 Patient was last seen on Recent Visits 07/03/2019 Sleep apnea, obstructive [facility] Vasiliy Bustillo, DO Office Visit 06/01/2018 Knee strain, left, initial encounter [facility] Vasiliy Bustillo, DO Office Visit [facility] CMA documented in th is encounter Plan of Treatment Not on filedocumented as of this encounter Visit Diagnoses + + | Diagnosis | + + | Gastroesophageal reflux disease, esophagitis presence not specified | + + documented in this encounter"
--- OUTSIDE RECORDS SUMMARY | ~2020-04-23 | XMS | Encounter Summary ---
Demographics + + + | Address | [address] | | | [place] [address] | + + + | Home Phone | | + + + | Preferred Language | Unknown | + + + | Marital Status | | + + + | Islam Affiliation | Unknown | + + + | Race | White | + + + | Ethnic Group | Not or | + + + Author + + + | Author | [facility] | | | and [place] | + + + | Organization | [facility] | | | and [...] [place], [place] | | | | | [address] | | + + + + + Care Team Providers + +------+ + | Care Project Safety Manager Name | Role | Phone | + +------+ + | Vasiliy Bustillo DO | PCP | | + +------+ + Reason for Visit + +--------+ + | Reason | Onset | Comments | | | Date | | + +--------+ + | Lab Results | 09/13/ | | | | 2020 | | + +--------+ + Encounter Details +--------+ + + + + | Date | Type | Department | Care Team | Description | +--------+ + + + + | 09/13/ | Telephone | [facility] | Vasiliy Bustillo | Lab Results | | 2020 | | [facility] | E, DO [address] | | | | | MEDICAL CLIN[address] | [place], [place] | | | | | [address] [place], | [address] | | | | | [place] [address] | [phone] | | | | | [phone] | | | +--------+ + + + [...] Encounter - Jessa Croft CC CMA - 09/13/2019 8:29 AM PST----- Message from Vasiliy Bustillo DO sent at 09/13/2019 8:09 AM PST ----- Let her know the lab looks ok; there Is a culture pending. documented in this encounter Plan of Treatment Not on filedocumented as of this encounter Visit Diagnoses Not on filedocumented in this encounter"
--- OUTSIDE RECORDS SUMMARY | ~2020-04-23 | XMS | Encounter Summary ---
Demographics + + + | Address | [address] | | | [place] [address] | + + + | Home Phone | | + + + | Preferred Language | Unknown | + + + | Marital Status | | + + + | Moravian Affiliation | Unknown | + + + [...] [place], [place] | | | | | [address] | | + + + + + Care Team Providers + +------+ + | Care Data Steward Name | Role | Phone | + [...] | | Gastroesopha | | [address], | | | | | geal reflux | | [address] | | | | | disease, | | [place], | | | | | esophagitis | | [place] [address] | | | | | presence not | | Phone: | | | | | specified | | [phone] | | | | | JANE | | Fax: | | | | | (obstructive | | [phone] | | | | | sleep | | | | | | | apnea) | | | | | | | Procedures | | | | | | | IA | | | | | | | ESOPHAGOGAST | | | | | | | RODUODENOSCO | | | | | | | PY TRANSORAL | | | | | | | DIAGNOSTIC | | | | | | | IA EGD | | | | | | | TRANSORAL | | | | | | | BIOPSY | | | | | | | SINGLE/MULTI | | | | | | | PLE IA | | | | | | | [...] + + + + | 09/06/ | Anesthesia | [facility] | Ryan Barton | | | 2020 | Event | [facility] | MD Sanjay [address] | | | | | [address] | [address] [place] | | | | | [place], [place] | [place] [address] | | | | | [address] | [phone] | | | | | [phone] | | | | | | | Derek Oliveros MD | | | | | | [address] | | | | | | [place], [place] | | | | | | [address] | | | | | | | | +--------+ + + + + Anesthesia Record + + + + + | Procedure Name | Responsible | Anesthesia Start | Anesthesia Stop Time | | | Anesthesiologist | Time | | + + + + + | JEWEL (N/A Mouth) | Ryan Grace | 09/06/19 1138 | 09/06/19 1202 | | | MD Mick | | | + + + + + +----+---+ + + | Da | T | Event | Comment | | te | i | | | | | m | | | | | e | | | +----+---+ + + | 01 | 1 | | | | /3 | 1 | | | | 1/ | 2 | | | | 20 | 4 | | | | 20 | | | | +----+---+ + + | | 1 | An Checkout | Pre-use anesthesia machine/equipment checkout. | | | 1 | | | | | 2 | | | | | 8 | | | +----+---+ + + | | 1 | An Start | Reassessment prior to anesthesia induction/procedure. | | | 1 | | | | | 3 | | | | | 8 | | | +----+---+ + + | | 1 | Pre-Procedu | | | | 1 | ral Timeout | | | | 4 | Completed | | | | 1 | | | +----+---+ + + | | 1 | An | | | | 1 | Induction | | | | 4 | | | | | 3 | | | +----+---+ + + | | 1 | First | | | | 1 | Inc/Proc St | | | | 4 | | | | | 5 | | | +----+---+ + + | | 1 | Breathing | | | | 1 | Spontaneous | | | | 4 | ly | | | | 5 | | | +----+---+ + + | | 1 | an shayan now | | | | 1 | | | | | 4 | | | | | 8 | | | +----+---+ + + | | 1 | an stop | | | | 1 | data | | | | 5 | | | | | 7 | | | +----+---+ + + | | 1 | An Stop | Patient handed off to recovery nurse. | | | 0 | | | | | 2 | | | +----+---+ + + +------+ | Meds | +------+ + +--------+ | Name | Total | + +--------+ | lidocaine 2% | 100 mg | + +--------+ | propofol | 300 mg | + +--------+ | lactated ringers (LR) infusion | 500 mL | + +--------+ + + | Name | + + | O2 Flow Rate (L/Min) | + + + + | No blood administrations on file. | + + +--------+ + + + | Type | Details | Placement | Removal | +--------+ + + + | Periph | 09/06/19; 1032; Right; Hand; | 09/06/19 1032 by | 09/06/19 1242 by | | eral | [id number] catheter system; | Kaylin Tran, | Randall Alva RN | | IV | 20 gauge, 1 1/4 in length; | RN | | | | intradermal injection, tolerated | | | | | well; no longer indicated; | | | | | 09/06/19; 1242 | | | +--------+ + + + documented in this encounter Social History + +-------+ +--------+------+ | Tobacco [...] + + documented as of this encounter [place] Notes Anesthesia Postprocedure Evaluation - Ryan Barton MD - 09/06/2019 2:27 PM PSTFo rmatting of this note might be different from the original. ANESTHESIA POSTANESTHESIA EVALUATION Katherin Mota 54 y.o. female 1965 [id number] No anesthesia complications. Procedure(s) EGD (N/A Mouth) Cooperates? Yes Mental Status Performs simple tasks. Respiratory Satisfactory - Airway patent (self maintained). Cardiovascular Satisfactory - Blood pressure and heart rate acceptable Temperature Satisfactory Pain Satisfactory N/V Control Satisfactory Hydration Satisfactory - No signs of dehydration Adverse Events ADVERSE EVENTS: No adverse events Vitals Value Taken Time Temp Pulse 81 09/06/2019 12:15 PM Resp BP 159/92 09/06/2019 12:17 PM Arterial Line BP Arterial Line BP 2 SpO2 98 % 09/06/2019 12:15 PM Vitals shown include unvalidated device data. Electronically signed by Ryan Barton MD 09/06/2019 2:27 PM [facility] signed by Ryan Barton MD a t 09/06/2019 2:28 PM PSTAnesthesia Preprocedure Evaluation - Derek Oliveros MD - 09/06/19 20 8:12 AM PST ANESTHESIA PREANESTHESIA EVALUATION Katherin Mota 54 y.o. female 1965 [id number] Procedure(s): EGD (N/A Mouth) Medical,anesthesia, drug, allergy histories reviewed, NPO status verified. ECG reviewed. Labs reviewed. Review of Systems / Med History Cardiovascular (+) hypertension and essential . Pulmonary (+) obstructive sleep apnea.(+) Sleep apnea history/interventions: CPAP and know n.(+) asthma. Gastrointestinal/Hepatic (+) acid reflux. Renal Lab Results Component Value Date CREA 0.89 07/03/2019 BUN 12 07/03/2019 NA 139 07/03/2019 K 3.4 07/03/2019 CL 101 07/03/2019 CO2 27 07/03/2019 . Endocrine (+) obesity: BMI (30-39) Hematology/Other Lab Results Component Value Date WBC 8.3 07/03/2019 HGB 14.7 07/03/2019 HCT 43.8 07/03/2019 MCV 89.2 07/03/2019 PLT 232 07/03/2019 . Physical Exam Airway MP II, TM >3 FB, Mouth opening >2 FB. Neck: full ROM, extends >30 degrees. Dental grossly normal except where noted below. CV Rhythm regular. Rate Normal. (-) murmur. Pulm Clear to auscultation bilaterally. Neuro grossly normal. Anesthesia Plan ASA: 2 Type: Total IV anesthesia, general. Induction: Intravenous. Potential problems: None anticipated. Monitors: Standard ASA monitors. Postop Pain Management: Consent statement: Anesthetic plan, alternatives, risks and benefits discussed with patient. drug reaction, na usea, pain, perioperative CV events, respiratory events Consenting person understands and agrees to proceed. PARQ. TIVA/IVGA w/ propofol. Explicit risks mentioned included the two most common to GI procedu res -- aspiration and hypoxemia.. documented in this en counter Miscellaneous Notes Anesthesia Post-op Handoff - Ryan Barton MD - 09/06/2019 12:02 PM PST ANESTHESIA HANDOFF NOTE Katherin Mota 54 y.o. female 1965 [id number] EGD (N/A Mouth) HANDOFF NOTE Handoff Protocol Used: post-procedure handoff checklist completed The following were completed during the transfer of care: 1. Identification of patient 2. Identification of responsible practitioner (primary service) 3. Discussion of pertinent medical history 4. Discussion of the surgical/procedure course (procedure, reason for surgery, procedure pe rformed) 5. Intraoperative anesthetic management and issues/concerns 6. Expectations/plans for the early post-procedure period 7. Opportunity for questions and acknowledgement of understanding of report from receiving team Patient Location: Phase II Condition: sedated Airway/O2: no supplemental O2 Comments: Supplemental Oxygen administered as necessary to maintain oxygen saturations abov e 92%. If the surgery does not typically require Narcotics then Multi-Modal Analgesia is not indic ated. The significant anesthesia concerns and VS in Epic were reviewed with the receiving team. Ryan Barton MD 09/06/2019 12:41 PM [facility]ron[facility] signed by MD jeny Bermudez t 09/06/2019 12:41 PM PSTdocumented in this encounter Plan of Treatment Not on filedocumented as of this encounter Visit Diagnoses Not on filedocumented in this encounter Administered Medications + +--------+ +--------+------+------+ | Medication Order | MAR | Action | Dose | Rate | Site | | | Action | Date | | | | + +--------+ +--------+------+------+ | lidocaine (PF) 2% injection | Given | 09/06/19 | 100 mg | | | | Intravenous, PRN, Starting Fri | | 20 11:43 | | | | | 09/06/19 at 1143, Anesthesia | | AM PST | | | | | Intra-op | | | | | | + +--------+ +--------+------+------+ +---+---+ | | | +---+---+ + +-------+ +-------+---+---+ | propofol (DIPRIVAN) injection | Given | 09/06/19 | 30 mg | | | | Intravenous, PRN, Starting Fri | | 20 11:52 | | | | | 09/06/19 at 1143, Anesthesia | | AM PST | | | | | Intra-op | | | | | | + +-------+ +-------+---+---+ +-------+ +-------+---+---+ | Given | 09/06/19 | 30 mg | | | | | 20 11:49 | | | | | | AM PST | | | | +-------+ +-------+---+---+ | Given | 09/06/19 | 40 mg | | | | | 20 11:48 | | | | | | AM PST | | | | +-------+ +-------+---+---+ +---+---+ | | | +---+---+ documented in this encounter"
--- OUTSIDE RECORDS SUMMARY | ~2020-04-23 | XMS | Encounter Summary ---
Demographics + + + | Address | [address] | | | [place] [address] | + + + | Home Phone | | + + + | Preferred Language | Unknown | + + + | Marital Status | | + + + | Pentecostalism Affiliation | Unknown | + + + | Race | White | + + + | Ethnic Group | Not or | + + + Author + + + | Author | [facility] | | | and [place] | + + + | Organization | [facility] | | | [...] [place], [place] | | | | | [address] | | + + + + + Care Team Providers + +------+ + | Care Mental Health Technician Name | Role | Phone | + +------+ + | Vasiliy Bustillo DO | PCP | | + +------+ + Reason for Visit + +--------+ + | Reason | Onset | Comments | | | Date | | + +--------+ + | Medication Refill | 05/28/ | | | | 2018 | | + +--------+ + Encounter Details +--------+--------+ + + + | Date | Type | Department | Care Team | Description | +--------+--------+ + + + | 05/28/ | Refill | [facility] [place] | [facility], | Medication Refill | | 2019 | | GASTROENTEROLOGY | [address] | | | | | [address] | [address] | | | | | [address] [place], [place] | [place] | | | | | [address] | [address] | | | | | [phone] | | | +--------+--------+ + + + [...] this encounter Miscellaneous Notes Telephone Encounter - Rhina Johnson ARNP - 05/29/2019 8:07 AM PDTPatient has not be en seen since 2012. documented in this encounter Plan of Treatment Not on filedocumented as of this encounter Visit Diagnoses Not on filedocumented in this encounter"
--- OUTSIDE RECORDS SUMMARY | ~2020-04-23 | XMS | Encounter Summary ---
Demographics + + + | Address | [address] | | | [place] [address] | + + + | Home Phone | | + + + | Preferred Language | Unknown | + + + | Marital Status | | + + + | Scientology Affiliation | Unknown | + + + | Race | White | + + + | Ethnic Group | Not or | + + + Author + + + | Author | [facility] | | | and [place] | + + + | Organization | [facility] | | | [...] [place], [place] | | | | | [address] | | + + + + + Care Team Providers + +------+ + | Care Filter Cleaner Name | Role | Phone | + +------+ + | Vasiliy Bustillo DO | PCP | | + +------+ + Encounter Details +--------+ + + + + | Date | Type | Department | Care Team | Description | +--------+ + + + + | 05/31/ | Abstract | [facility] | Aaron Pérez | | | 2017 | | [facility] | | | | | | MEDICAL CLIN[address] | | | | | | [address] [place], | | | | | | [place] [address] | | | | | | [phone] | | | +--------+ + + + [...]
--- OUTSIDE RECORDS SUMMARY | ~2020-04-23 | XMS | Encounter Summary ---
Demographics + + + | Address | [address] | | | [place] [address] | + + + | Home Phone [...] [place], [place] | | | | | [address] | | + + + + + Care Team Providers + +------+ + | Care Gas Or Petroleum Operator Name | Role | Phone | + +------+ + | Vasiliy Bustillo DO | PCP | | + +------+ + Reason for Visit + +--------+ + | Reason | Onset | Comments | | | Date | | + +--------+ + | Medication Refill | 06/01/ | | | | 2017 | | + +--------+ + | Lab Order | 06/01/ | | | | 2017 | | + +--------+ + Encounter Details +--------+--------+ + + + | Date | Type | Department | Care Team | Description | +--------+--------+ + + + | 06/01/ | Refill | [facility] | Aaron Pérez | Medication Refill; | | 2017 | | [facility] | | Lab Order | | | | MEDICAL CLIN[address] | | | | | | [address] [facility], | | | | | | [place] [address] | | | | | | [phone] | | | +--------+--------+ + + + [...] this encounter Miscellaneous Notes Telephone Encounter - Aaron Pérez - 06/01/2018 3:25 PM PDTI have pended refill medicati ons and lab work to be done at [facility]. Can you please sign Williamronically signed by Aaron Pérez at 06/01/2018 3:26 PM PDTdocumented in this e ncounter Plan of Treatment + +------+--------+ + + | Name | Type | Priori | Associated Diagnoses | Order Schedule | | | | ty | | | + +------+--------+ + + | Urinalysis with | Lab | Routin | Impaired fasting | Expected: | | Microscopic with | | e | glucose | 06/01/2018, Expires: | | Culture if Indicated | | | | 06/01/2019 | + +------+--------+ + + | Hemoglobin A1C | Lab | Routin | Impaired fasting | Expected: | | | | e | glucose | 06/01/2018, Expires: | | | | | | 06/01/2019 | + +------+--------+ + + documented as of this encounter Visit Diagnoses + + | Diagnosis | + + | Essential hypertension - Primary Unspecified essential hypertension | + + | Impaired fasting glucose | + + | Other depression | + + documented in this encounter"
[~2020-04-23 06:00] MED LIST: BACTRIM 400-801 EACH PO; FAMCICLOVIR500 MG PO
[2020-04-23] MEDS ORDERED: PROZAC20 MG PO (06:21)
[2020-04-23] MEDS ORDERED: DICLOFENAC SODI75 MG PO (06:50)
[2020-04-23] MEDS ORDERED: CRUTCH1 EACH MISC (06:52)
== END 2020-04-23 07:07 | disposition home or self-care (01) ==
LOC: ED 06:00
DX: M25.561 Pain in right knee (principal); I10 Essential (primary) hypertension; Z88.5 Allergy status to narcotic agent; Z79.899 Other long term (current) drug therapy
CPT/HCPCS: 73560; 99283-25

== ENCOUNTER 2021-08-06 06:21 | Emergency (ER) | payer OTHER ==
[~2021-08-06] VITALS: Ht 172.7 cm; Wt 107.0 kg
[~2021-08-06 06:21] MED LIST changes: +CRUTCH1 EACH MISC; +DICLOFENAC SODI75 MG PO; +PROZAC20 MG PO
[2021-08-06] MEDS ORDERED: ESTRADIOL-NORE1 EACH PO (06:33)
[2021-08-06] MEDS ORDERED: TRIAMTERENE-HC1 EAC3 PO (06:34)
[2021-08-06] MEDS ORDERED: FLUOXETINE HCL20 MG PO (06:34)
[2021-08-06] MEDS ORDERED: AMLODIPINE BESYL5 MG PO (06:34)
[2021-08-06] MEDS ORDERED: CYCLOBENZAPRINE10 MG PO (09:09)
[2021-08-06] MEDS ORDERED: CARAFATE1 GM PO (09:09)
--- NOTE | 2021-08-07 07:43 | EKG ---
[facility] [address] [facility] [place] [address] Signed Normal sinus rhythm Low voltage QRS Cannot rule out Anterior infarct , age undetermined Abnormal ECG No previous ECGs available Confirmed by DENNYS MASSEY MD ([id number]) on 08/07/2021 7:43:26 AM Electronically Signed By: DENNYS MASSEY MD 08/07/21 0743 PATIENT NAME: SARAH DURAN Electrocardiogram DATE OF : 63 PHYSICIAN: DENNYS MASSEY MD REPORT #: [id number] REPORT IS CONFIDENTIAL AND NOT TO BE RELEASED WITHOUT AUTHORIZATION
== END 2021-08-06 09:18 | disposition home or self-care (01) ==
LOC: ED 06:21
DX: R07.89 Other chest pain (principal); I10 Essential (primary) hypertension; K21.9 Gastro-esophageal reflux disease without esophagitis; Z88.5 Allergy status to narcotic agent; Z79.899 Other long term (current) drug therapy
CPT/HCPCS: 71045; 80053; 83690; 83735; 84484; 85025; 93005; 93010; 99285-25

== ENCOUNTER 2021-10-07 18:55 | Emergency (ER) | payer OTHER ==
[~2021-10-07] VITALS: Ht 172.7 cm; Wt 104.3 kg
[~2021-10-07 18:55] MED LIST changes: +AMLODIPINE BESYL5 MG PO; +CARAFATE1 GM PO; +CYCLOBENZAPRINE10 MG PO; +ESTRADIOL-NORE1 EACH PO; +FLUOXETINE HCL20 MG PO; +TRIAMTERENE-HC1 EAC3 PO
[2021-10-07] MEDS ORDERED: METOPROLOL SUCC25 MG PO (22:28)
[2021-10-07] MEDS ORDERED: SYNTHROID25 MCG PO (22:32)
--- NOTE | 2021-10-07 22:51 | NUR ---
I was called to assit with airway while patient was sedated to receive cardioversion for afib with RVR. 2 shocks needed for successfull cardioversion. Prior to procedure O2 placed at 2 lpm with etCO2 in place. BVM at bedside and no intervention was required. EKG done post. Holter monitor ordered and set up. Patient and family education done with verbal teachback performed.
--- NOTE | 2021-10-08 07:01 | EKG ---
[facility] [address] [facility] [place] [address] Signed Atrial fibrillation with rapid ventricular response with premature ventricular or aberrantly conducted complexes Nonspecific ST abnormality Abnormal QRS-T angle, consider primary T wave abnormality Abnormal ECG When compared with ECG of 06-AUG-2021 06:26, Significant changes have occurred Confirmed by DENNYS MASSEY MD ([id number]) on 10/08/2021 7:01:47 AM Electronically Signed By: DENNYS MASSEY MD 10/08/21 0701 PATIENT NAME: SARAH DURAN Electrocardiogram DATE OF : 63 PHYSICIAN: DENNYS MASSEY MD REPORT #: [id number] REPORT IS CONFIDENTIAL AND NOT TO BE RELEASED WITHOUT AUTHORIZATION
--- NOTE | 2021-10-08 07:02 | EKG ---
[facility] [address] [facility] [place] [address] Signed Normal sinus rhythm Nonspecific ST abnormality Abnormal ECG When compared with ECG of 07-OCT-2021 18:58, (Unconfirmed) Sinus rhythm has replaced Atrial fibrillation Vent. rate has decreased BY [address] no longer depressed in Lateral leads T wave inversion no longer evident in Inferior leads Confirmed by DENNYS MASSEY MD ([id number]) on 10/08/2021 7:02:09 AM Electronically Signed By: DENNYS MASSEY MD 10/08/21 0702 PATIENT NAME: SARAH DURAN Electrocardiogram DATE OF : 63 PHYSICIAN: DENNYS MASSEY MD REPORT #: [id number] REPORT IS CONFIDENTIAL AND NOT TO BE RELEASED WITHOUT AUTHORIZATION
== END 2021-10-07 22:44 | disposition home or self-care (01) ==
LOC: ED 18:55
DX: I48.0 Paroxysmal atrial fibrillation (principal); I10 Essential (primary) hypertension; K21.9 Gastro-esophageal reflux disease without esophagitis; Z88.5 Allergy status to narcotic agent; Z79.899 Other long term (current) drug therapy
CPT/HCPCS: 36415; 71045; 80053; 81001; 82310; 83735; 83880; 84443; 84484; 85025; 85379; 85610; 93005; 93010; 96374; 96375; 96376; 99285-25; J2250; J3010; J3480; J7030

== ENCOUNTER 2021-10-09 22:38 | Emergency (ER) | payer OTHER ==
[~2021-10-09] VITALS: Ht 172.7 cm; Wt 101.2 kg
[~2021-10-09 22:38] MED LIST changes: +METOPROLOL SUCC25 MG PO; +SYNTHROID25 MCG PO
--- OUTSIDE RECORDS SUMMARY | 2021-10-09 22:44 | XMS ---
PreManage Notification: SARAH DURAN Security Manager Card Events No recent Security Events currently on file CRITERIA MET - [facility] - 2 Visits in 30 Days CARE PROVIDERS There are no care providers on record at this time. Britta has no Care Guidelines for this patient. [facility] MO.) [facility] NOTE: Visits indicate total known visits. ED/[facility] VISIT TRACKING (12 MO.) 10/09/2021 22:[facility] COMPLAINT: - HIGH BLOOD PRESSURE, RAPID HEAR RATE 10/07/2021 18:56 [facility] TYPE: Emergency COMPLAINT: - CHEST PAIN 08/06/2021 06:22 [facility] [place] TYPE: Emergency COMPLAINT: - CHEST DISCOMFORT, DIZZINESS DIAGNOSES: - Gastro-esophageal reflux disease without esophagitis - Allergy status to narcotic agent - Essential (primary) hypertension - Other fdc (current) drug therapy - Precordial pain - Other chest pain INPATIENT VISIT TRACKING (12 MO.) No inpatient visits to display in this time frame [id number]
--- NOTE | 2021-10-10 15:19 | EKG ---
[facility] [address] [facility] [place], [place] [address] Signed Normal sinus rhythm Normal ECG When compared with ECG of 07-OCT-2021 21:03, No significant change was found Confirmed by REMINGTON CARROLL MD ([id number]) on 10/10/2021 3:19:27 PM Electronically Signed By: REMINGTON CARROLL MD 10/10/21 1519 PATIENT NAME: SARAH DURAN ANSELMO Electrocardiogram DATE OF : 63 PHYSICIAN: REMINGTON CARROLL MD REPORT #: [id number] REPORT IS CONFIDENTIAL AND NOT TO BE RELEASED WITHOUT AUTHORIZATION
== END 2021-10-09 23:49 | disposition home or self-care (01) ==
LOC: ED 22:38
DX: R07.89 Other chest pain (principal); I10 Essential (primary) hypertension; K21.9 Gastro-esophageal reflux disease without esophagitis; Z88.5 Allergy status to narcotic agent; Z79.899 Other long term (current) drug therapy
CPT/HCPCS: 36415; 80048; 84484; 85025; 93005; 93010; 96374; 99285-25

== ENCOUNTER 2021-10-11 16:13 | Emergency (ER) | payer OTHER ==
[~2021-10-11] VITALS: Ht 172.7 cm; Wt 101.2 kg
[2021-10-11] MEDS ORDERED: SUCRALFATE1 GM PO (16:30)
--- OUTSIDE RECORDS SUMMARY | 2021-10-11 17:48 | XMS ---
PreManage Notification: SARAH DURAN Security Optician Apprentice Events No recent Security Events currently on file CRITERIA MET - [facility] - 2 Visits in 30 Days CARE PROVIDERS BERNADETTE HAYNES [facility] 10/11/2021-Current PHONE: Unknown Britta has no Care Guidelines for this patient. Teto VISIT COUNT (12 MO.) 4 [facility] TOTAL 4 NOTE: Visits indicate total known visits. ED/UCC VISIT TRACKING (12 MO.) 10/11/2021 16:14 [facility] TYPE: Emergency COMPLAINT: - CHEST PAIN 10/09/2021 22:39 [facility] TYPE: Emergency COMPLAINT: - HIGH BLOOD PRESSURE, RAPID HEAR RATE 10/07/2021 18:56 [facility] [place] TYPE: Emergency COMPLAINT: - CHEST PAIN DIAGNOSES: - Gastro-esophageal reflux disease without esophagitis - Essential (primary) hypertension - Paroxysmal atrial fibrillation - Dizziness and giddiness - Other inseam trimmer (current) drug therapy - Allergy status to narcotic agent 08/06/2021 06:[address] [facility] [place] TYPE: Emergency COMPLAINT: - CHEST DISCOMFORT, DIZZINESS DIAGNOSES: - Gastro-esophageal reflux disease without esophagitis - Allergy status to narcotic agent - Essential (primary) hypertension - Other inseam trimmer (current) drug therapy - Precordial pain - Other chest pain INPATIENT VISIT TRACKING (12 MO.) No inpatient visits to display in this time frame [id number]
--- NOTE | 2021-10-13 17:25 | EKG ---
[facility] [address] [facility] [place] [address] Signed Normal sinus rhythm Normal ECG When compared with ECG of 09-OCT-2021 22:48, No significant change was found Confirmed by REMINGTON CARROLL MD ([id number]) on 10/13/2021 5:25:13 PM Electronically Signed By: REMINGTON CARROLL MD 10/13/21 1725 PATIENT NAME: SARAH DURAN ANSELMO Electrocardiogram DATE OF : 63 PHYSICIAN: REMINGTON CARROLL MD REPORT #: [id number] REPORT IS CONFIDENTIAL AND NOT TO BE RELEASED WITHOUT AUTHORIZATION
== END 2021-10-11 18:15 | disposition home or self-care (01) ==
LOC: ED 16:13
DX: I48.0 Paroxysmal atrial fibrillation (principal); I10 Essential (primary) hypertension; K21.9 Gastro-esophageal reflux disease without esophagitis; Z88.5 Allergy status to narcotic agent; Z79.899 Other long term (current) drug therapy
CPT/HCPCS: 36415; 71045; 80053; 83735; 84484; 85025; 99285-25

== ENCOUNTER 2021-10-20 12:20 | Emergency (ER) | payer OTHER ==
[~2021-10-20] VITALS: Ht 172.7 cm; Wt 101.2 kg
[~2021-10-20 12:20] MED LIST changes: +SUCRALFATE1 GM PO
--- OUTSIDE RECORDS SUMMARY | 2021-10-20 12:26 | XMS ---
PreManage Notification: SARAH DURAN Security Social Media Sr Strategy Manager Events No recent Security Events currently on file CRITERIA MET - [facility] - 2 Visits in 30 Days CARE PROVIDERS BERNADETTE HAYNES [facility] 10/11/2021-Current PHONE: Unknown Britta has no Care Guidelines for this patient. Teto VISIT COUNT (12 MO.) 5 [facility] TOTAL 5 NOTE: Visits indicate total known visits. ED/UCC VISIT TRACKING (12 MO.) 10/20/2021 12:20 [facility] TYPE: Emergency COMPLAINT: - CHEST PAIN 10/11/2021 16:14 [facility] TYPE: Emergency COMPLAINT: - CHEST PAIN DIAGNOSES: - Allergy status to narcotic agent - Essential (primary) hypertension - Chest pain, unspecified - Paroxysmal atrial fibrillation - Other mcc (current) drug therapy - Gastro-esophageal reflux disease without esophagitis 10/09/2021 22:39 [facility] TYPE: Emergency COMPLAINT: - HIGH BLOOD PRESSURE, RAPID HEAR RATE DIAGNOSES: - Gastro-esophageal reflux disease without esophagitis - Other termite helper (current) drug therapy - Precordial pain - Allergy status to narcotic agent - Essential (primary) hypertension - Other chest pain 10/07/2021 18:56 [facility] TYPE: Emergency COMPLAINT: - CHEST PAIN DIAGNOSES: - Gastro-esophageal reflux disease without esophagitis - Essential (primary) hypertension - Paroxysmal atrial fibrillation - Dizziness and giddiness - Other termite helper (current) drug therapy - Allergy status to narcotic agent 08/06/2021 06:22 [facility] TYPE: Emergency COMPLAINT: - CHEST DISCOMFORT, DIZZINESS DIAGNOSES: - Gastro-esophageal reflux disease without esophagitis - Allergy status to narcotic agent - Essential (primary) hypertension - Other mcc (current) drug therapy - Precordial pain - Other chest pain INPATIENT VISIT TRACKING (12 MO.) No inpatient visits to display in this time frame [id number]
[2021-10-20] MEDS ORDERED: ESOMEPRAZOLE MA20 MG PO (12:30)
--- NOTE | 2021-10-20 18:27 | EKG ---
[facility] [address] [facility] [place], [place] [address] Signed Normal sinus rhythm Normal ECG No previous ECGs available Confirmed by DENNYS MASSEY MD ([id number]) on 10/20/2021 6:26:46 PM Electronically Signed By: DENNYS MASSEY MD 10/20/21 182 PATIENT NAME: SARAH DURAN Electrocardiogram DATE OF : 63 PHYSICIAN: DENNYS MASSEY MD REPORT #: [id number] REPORT IS CONFIDENTIAL AND NOT TO BE RELEASED WITHOUT AUTHORIZATION
== END 2021-10-20 14:18 | disposition home or self-care (01) ==
LOC: ED 12:20
DX: K21.9 Gastro-esophageal reflux disease without esophagitis (principal); R07.89 Other chest pain; E87.6 Hypokalemia; I10 Essential (primary) hypertension; I48.0 Paroxysmal atrial fibrillation; Z88.5 Allergy status to narcotic agent; Z79.899 Other long term (current) drug therapy
CPT/HCPCS: 36415; 71045; 80048; 84484; 85025; 93005; 93010; 99285-25

== ENCOUNTER 2021-11-19 02:59 | Inpatient (IN) | payer OTHER ==
[~2021-11-19] VITALS: Ht 172.7 cm; Wt 97.7 kg
[~2021-11-19 02:59] MED LIST changes: +ESOMEPRAZOLE MA20 MG PO
--- OUTSIDE RECORDS SUMMARY | 2021-11-19 03:08 | XMS ---
PreManage Notification: SARAH DURAN Security Data Entry Representative Events No recent Security Events currently on file CRITERIA MET - [facility] - 2 Visits in 30 Days - 6 ED Visits in 6 Months CARE PROVIDERS BERNADETTE HAYNES [facility] 10/11/2021-Current PHONE: Unknown Britta has no Care Guidelines for this patient. Teto VISIT COUNT (12 MO.) 6 [facility] TOTAL 6 NOTE: Visits indicate total known visits. ED/UCC VISIT TRACKING (12 MO.) 11/19/2021 03:00 [facility] TYPE: Emergency COMPLAINT: - RAPID HEART RATE 10/20/2021 12:20 [facility] TYPE: Emergency COMPLAINT: - CHEST PAIN DIAGNOSES: - Essential (primary) hypertension - Paroxysmal atrial fibrillation - Allergy status to narcotic agent - Gastro-esophageal reflux disease without esophagitis - Chest pain, unspecified - Other chest pain - Other terminal clerk (current) drug therapy - Hypokalemia 10/11/2021 16:14 [facility] TYPE: Emergency COMPLAINT: - CHEST PAIN DIAGNOSES: - Allergy status to narcotic agent - Essential (primary) hypertension - Chest pain, unspecified - Paroxysmal atrial fibrillation - Other terminal clerk (current) drug therapy - Gastro-esophageal reflux disease without esophagitis 10/09/2021 22:39 [facility] [place] TYPE: Emergency COMPLAINT: - HIGH BLOOD PRESSURE, RAPID HEAR RATE DIAGNOSES: - Gastro-esophageal reflux disease without esophagitis - Other group home (current) drug therapy - Precordial pain - Allergy status to narcotic agent - Essential (primary) hypertension - Other chest pain 10/07/2021 18:56 [facility] [place] TYPE: Emergency COMPLAINT: - CHEST PAIN DIAGNOSES: - Gastro-esophageal reflux disease without esophagitis - Essential (primary) hypertension - Paroxysmal atrial fibrillation - Dizziness and giddiness - Other group home (current) drug therapy - Allergy status to narcotic agent 08/06/2021 06:22 [facility] [place] TYPE: Emergency COMPLAINT: - CHEST DISCOMFORT, DIZZINESS DIAGNOSES: - Gastro-esophageal reflux disease without esophagitis - Allergy status to narcotic agent - Essential (primary) hypertension - Other terminal clerk (current) drug therapy - Precordial pain - Other chest pain INPATIENT VISIT TRACKING (12 MO.) No inpatient visits to display in this time frame [id number]
[2021-11-19] MEDS ORDERED: ZYRTEC10 MG PO (03:12)
--- NOTE | 2021-11-19 13:16 | EKG ---
[facility] [address] [facility] [place] [address] Signed Atrial fibrillation with rapid ventricular response with premature ventricular or aberrantly conducted complexes Cannot rule out Anterior infarct , age undetermined Abnormal ECG No previous ECGs available Confirmed by REMINGTON CARROLL MD ([id number]) on 11/19/2021 1:16:10 PM Electronically Signed By: REMINGTON CARROLL MD 11/19/21 1316 PATIENT NAME: SARAH DURAN ANSELMO Electrocardiogram DATE OF : 63 PHYSICIAN: REMINGTON CARROLL MD REPORT #: [id number] REPORT IS CONFIDENTIAL AND NOT TO BE RELEASED WITHOUT AUTHORIZATION
[2021-11-19] MEDS ORDERED: AMLODIPINE BESY10 MG PO (15:43)
[2021-11-19] MEDS ORDERED: LEVOTHYROXINE25 MCG PO (15:44)
[2021-11-19] MEDS ORDERED: METOPROLOL SUC100 MG PO (15:44)
--- NOTE | 2021-11-21 07:38 | EKG ---
[facility] [address] [facility] [place] [address] Signed Atrial fibrillation with rapid ventricular response with premature ventricular or aberrantly conducted complexes Low voltage QRS Nonspecific ST abnormality Abnormal ECG When compared with ECG of 19-NOV-2021 03:03, ST no longer depressed in Lateral leads Confirmed by DENNYS MASSEY MD ([id number]) on 11/21/2021 7:38:03 AM Electronically Signed By: DENNYS MASSEY MD 11/21/21 0738 PATIENT NAME: SARAH DURAN Electrocardiogram DATE OF : 63 PHYSICIAN: DENNYS MASSEY MD REPORT #: [id number] REPORT IS CONFIDENTIAL AND NOT TO BE RELEASED WITHOUT AUTHORIZATION
[2021-11-22] MEDS ORDERED: ELIQUIS5 MG PO (08:45)
[2021-11-22] MEDS ORDERED: AMIODARONE HCL200 MG PO (08:46)
[2021-11-22] MEDS ORDERED: METOPROLOL TART50 MG PO (08:46)
== END 2021-11-22 13:55 | disposition home or self-care (01) | DRG 310 ==
LOC: ED 02:59 → CCU 04:16
PROVIDERS: ADMIT Internal Medicine; ATTEND Internal Medicine
DX: I48.0 Paroxysmal atrial fibrillation (principal); Z20.822 Contact with and (suspected) exposure to COVID-19; I10 Essential (primary) hypertension; K21.9 Gastro-esophageal reflux disease without esophagitis; Z68.33 Body mass index [BMI] 33.0-33.9, adult; E66.9 Obesity, unspecified; G47.33 Obstructive sleep apnea (adult) (pediatric); F32.A Depression, unspecified; Z88.5 Allergy status to narcotic agent; Z79.899 Other long term (current) drug therapy; Z98.890 Other specified postprocedural states
CPT/HCPCS: 36415; 71260; 80048; 80053; 80162; 81001; 83735; 83880; 84443; 85025; 85379; 85610; 86140; 93005; 93010; 93306; 96374; 96376; 99285-25; A9270; C9803; J0282; J1160; J1650; J1940; J3475; J7030; Q9967; U0003